=== PATIENT | female | born 1955 | race Caucasian/White ===

== ENCOUNTER 2022-11-23 09:18 | Outpatient (OUT) | payer MEDICARE, SELFPAY ==
--- NOTE | 2022-11-23 | MM_ITS ---
Patient: DASHAWN NELSON Exam Date: 11/23/2022 : 1955 Gender:F Ordering : DR Parmjit Khan . Admission #: [id number] Family : Order #: [id number] CLICK HERE TO VIEW EXAM RADIOLOGY REPORT PROCEDURE: MM TOMOSYNTHESIS SCREENING BI COMPARISON: MG MAMM SCREEN 3D CELINA CAD, 11/22/2021. INDICATIONS: Screening Mammogram Calculator Name NCI Breast Cancer Risk Assessment Tool 5 Year Breast Cancer Risk 1.40% Lifetime Breast Cancer Risk 4.60% Personal Breast Cancer No Personal Ovarian Cancer No Treatments None Family Cancers Sister with pancreatic cancer at age 74. LOCATION: [facility] BREAST COMPOSITION: Heterogeneously dense,which may obscure small masses. FINDINGS: DIAGNOSTIC CATEGORY 1--NEGATIVE. RIGHT BREAST: No significant suspicious finding. No significant change has occurred. LEFT BREAST: No significant suspicious finding. No significant change has occurred. RECOMMENDATIONS: ROUTINE MAMMOGRAM AND CLINICAL EVALUATION IN 12 MONTHS. PLEASE NOTE: A NORMAL MAMMOGRAM DOES NOT EXCLUDE THE POSSIBILITY OF BREAST CANCER. A CLINICALLY SUSPICIOUS PALPABLE LUMP SHOULD BE BIOPSIED. Dictated by: Omar Drummond M.D. on 11/23/2022 at 13:16 Approved by: Omar Drummond M.D. on 11/23/2022 at 13:21
== END 2022-11-23 09:19 | disposition home or self-care (01) ==
LOC: MAMMO 09:18
PROVIDERS: PCP Family Medicine; Visit Provider Family Medicine
DX: Z12.31 Encounter for screening mammogram for malignant neoplasm of breast (principal); Z80.0 Family history of malignant neoplasm of digestive organs
CPT/HCPCS: 77063; 77067

== ENCOUNTER 2022-12-01 07:27 | Outpatient (OUT) | payer MEDICARE, SELFPAY ==
[2022-12-01 07:44] LABS: Basophils Absolute Auto 0.1 10^3/uL (0.0-0.1); Basophils Percent Auto 1.2 % (0.2-2.0); Eosinophils Absolute Auto 0.2 10^3/uL (0.0-0.7); Eosinophils Percent Auto 5.4 % (0.9-7.0); Hematocrit 36.6 % (36.0-48.0); Hemoglobin 11.7 g/dL (12.0-16.0); Immature Granulocytes Abs Auto 0.01 10^3/uL (0.00-0.03); Immature Granulocytes Pct Auto 0.2 % (0.0-0.5); Lymphocytes Absolute Auto 1.7 10^3/uL (1.2-3.8); Lymphocytes Percent Auto 39.3 % (20.5-60.0); Mean Corpuscular Volume 90.6 fL (81.0-99.0); Mean Platelet Volume 9.8 fL (9.5-13.5); Monocytes Absolute Auto 0.5 10^3/uL (0.3-0.8); Monocytes Percent Auto 10.8 % (1.7-12.0); Neutrophils Absolute Auto 1.8 10^3/uL (1.4-6.5); Neutrophils Percent Auto 43.1 % (43.0-75.0); Platelet Count 233 10^3/uL (150-450); Red Blood Count 4.04 10^6/uL (4.20-5.40); Red Cell Distribution Width 12.5 % (11.0-15.0); White Blood Count 4.3 10^3/uL (4.0-11.0)
--- NOTE | 2022-12-01 07:45 | XR_ITS ---
[address] [address] Patient Name: DASHAWN NELSON MRN: [id number] date: 1955 Sex: F Assigned Patient Location: [facility] Current Patient Location: [facility] Accession/Order Number: [id number] Exam Date: 12/01/2022 07:50 Report Date: 12/01/2022 09:09 At the request of: IVET WALL Procedure: XR DEXA axial skeleton EXAMINATION: XR DEXA axial skeleton, 12/01/2022 7:50 AM EDT HISTORY: Post Menopausal COMPARISON: None. TECHNIQUE: Dual-energy X-ray absorptiometry (DEXA) bone density study performed for the axial skeleton. HISTORY: Post Menopausal FINDINGS: Bone mineral density AP spine L1-L4 measures 1.300 g/sq cm. T score 1.0. WHO classification: Normal Lowest bone mineral density left femoral neck measures 0.868 g/sq cm. T score -1.2. WHO classification: Osteopenia XR/XR DEXA axial skeleton IMPRESSION: Osteopenia. Moderate fracture risk Electronically authenticated by: OWEN SHELTON Date: 12/01/2022 09:09
[2022-12-01 08:23] LABS: Alanine Aminotransferase 26 U/L (14-59); Albumin Globulin Ratio 0.9; Albumin Level 3.6 g/dL (3.4-5.0); Alkaline Phosphatase 74 U/L (46-116); Anion Gap 10.4; Aspartate Amino Transferase 22 U/L (15-37); BUN Creatinine Ratio 22.9; Bilirubin Direct 0.1 mg/dL (0.0-0.2); Bilirubin Total 0.3 mg/dL (0.2-1.0); Calcium 8.7 mg/dL (8.5-10.1); Carbon Dioxide 29.1 mmol/L (21.0-32.0); Chloride 104 mmol/L (98-107); Chol HDL Ratio 2.9; Cholesterol 204 mg/dL (<=200); Estimated GFR (African America >60 (>=60); Estimated GFR (Non-African Ame 58 (>=60); Globulin 3.9 g/dL; Glucose 90 mg/dL (74-106); HDL Cholesterol 71 mg/dL (40-60); Potassium 4.5 mmol/L (3.5-5.1); Sodium 139 mmol/L (136-145); Total Protein 7.5 g/dL (6.4-8.2); Triglycerides 53 mg/dL (<=150); VLDL CHOLESTEROL 10.6 mg/dL
[2022-12-01 08:31] LABS: Estimated Average Glucose 114 mg/dL; Glycohemoglobin A1C 5.6 % (4.5-6.2)
== END 2022-12-01 07:28 | disposition home or self-care (01) ==
LOC: RAD 07:27
PROVIDERS: PCP Family Medicine; Visit Provider Family Medicine
DX: E78.5 Hyperlipidemia, unspecified (principal); Z51.81 Encounter for therapeutic drug level monitoring; E66.9 Obesity, unspecified; R73.03 Prediabetes; M85.80 Other specified disorders of bone density and structure, unspecified site; Z78.0 Asymptomatic menopausal state
CPT/HCPCS: 36415; 77080; 80048; 80061; 80076; 83036; 84443; 85025

== ENCOUNTER 2023-12-03 07:34 | Outpatient (OUT) | payer MEDICARE, SELFPAY ==
--- NOTE | 2023-12-03 07:36 | MM_ITS ---
Patient Name: DASHAWN NELSON MR#: [id number] : 1955 Exam Date: 12/03/2023 Ordering Doctor: DR Parmjit Khan . RADIOLOGY REPORT PROCEDURE: MM TOMOSYNTHESIS SCREENING BI COMPARISON: MG MAMM SCREEN 3D CELINA CAD, 11/22/2021. MM TOMOSYNTHESIS SCREENING BI, 11/23/2022. INDICATIONS: Screening Calculator Name NCI Breast Cancer Risk Assessment Tool 5 Year Breast Cancer Risk 1.40% Lifetime Breast Cancer Risk 4.30% Personal Breast Cancer No Personal Ovarian Cancer No Treatments None Family Cancers Sister with pancreatic cancer at age 74. LOCATION: [facility] BREAST COMPOSITION: The breasts are heterogeneously dense,which may obscure small masses. FINDINGS: DIAGNOSTIC CATEGORY 1--NEGATIVE. NO CHANGE FROM COMPARISON ASSESSMENT. Scattered benign-appearing calcifications are present. Scattered benign-appearing lymph nodes are present. RIGHT BREAST: No significant suspicious finding. LEFT BREAST: No significant suspicious finding. RECOMMENDATIONS: ROUTINE MAMMOGRAM AND CLINICAL EVALUATION IN 12 MONTHS. PLEASE NOTE: A NORMAL MAMMOGRAM DOES NOT EXCLUDE THE POSSIBILITY OF BREAST CANCER. A CLINICALLY SUSPICIOUS PALPABLE LUMP SHOULD BE BIOPSIED. Dictated by: Tiburcio Tejeda MD on 12/03/2023 at 12:05 Approved by: Tiburcio Tejeda MD on 12/03/2023 at 12:07
--- OUTSIDE RECORDS SUMMARY | 2023-12-03 07:39 | XMS_ITS | CCD ---
Author Organization [facility] Care Team Providers Care Lining Inserter Name Role Phone Jenny Long Unavailable UDKE, DR PARMJIT Wilson Admitting Unavailable NADERER, DR PARMJIT Wilson Attending Unavailable NADERER, DR PARMJIT Wilson Primary Care Unavailable NATASHAEBSAVANAH, DR EARNESTINE Saldivar Consulting Unavailable NADERER, DR PARMJIT Wilson Consulting Unavailable NADERER, DR PARMJIT Wilson Admitting Unavailable NADERER, DR PARMJIT Wilson Attending Unavailable NADERER, DR PARMJIT Wilson Primary Care Unavailable AARON, DR EARNESTINE Saldivar Consulting Unavailable NADERER, DR PARMJIT Wilson Consulting Unavailable NADERER, DR PARMJIT Wilson Admitting Unavailable NADERER, DR PARMJIT Wilson Attending Unavailable NADERER, DR PARMJIT Wilson Primary Care Unavailable NADERER, DR PARMJIT Wilson Consulting Unavailable NADERER, DR PARMJIT Wilson Admitting Unavailable NADERER, DR PARMJIT Wilson Attending Unavailable NADERER, DR PRAMJIT Wilson Primary Care Unavailable Edgerton, DR Dey Consulting Unavailable NADERER, DR PARMJIT Wilson Consulting Unavailable ALEJANDRA, DR GALVAN Admitting Unavailable ALEJANDRA, DR GALVAN Attending Unavailable NADEREYariel, DR PARMJIT Wilson Primary Care Unavailable AARON, DR EARNESTINE Saldivar Consulting Unavailable ALEJANDRA, DR GALVAN Consulting Unavailable Mercedes, Jenny Attending Unavailable Mercedes, Jenny Admitting Unavailable NO FAMILY, PHYSICIAN Primary Care Unavailable NADERER, PARMJIT Attending Unavailable NADERER, PARMJIT Attending Unavailable MARÍA ELENA, SONJA Wilson Attending Unavailable NADERER, PARMJIT Attending Unavailable NADERER, PARMJIT Attending Unavailable NADERER, PARMJIT Attending Unavailable Naderer Parmijt CHAVES Primary Care Provider Medications Current Medications Medication Drug Class(es) Dates Sig (Normalized) Sig (Original) amoxicillin 875 mg / clavulanate 125 mg oral tablet (2 sources) Penicillin-class Antibacterial Start: 11-27-2023 End: 12-07-2023 take 1 tablet by mouth in the morning amoxicillin-clavul anate (Augmentin) 875-125 MG tablet Indications: Sialadenitis Take 1 tablet (875 mg) by mouth in the morning and 1 tablet (875 mg) before bedtime. Do all this for 10 days. 20 tablet 11/27/2023 12/07/2023 Active ascorbic acid 60 mg / beta carotene 5000 unt / copper sulfate 40 mg / dl-alpha tocopheryl acetate 30 unt / sodium selenite 0.04 mg / zinc oxide 40 mg oral tablet (3 sources) Vitamin C Multiple Vitamin (Multivitamin Adult) tablet Orally Active aspirin 81 mg delayed release oral tablet (3 sources) Platelet Aggregation Inhibitor, Nonsteroidal Anti-inflammatory Drug aspirin 81 MG EC tablet 1 (one) time each day at the same time Active 24 hr buPROPion hydrochloride 150 mg extended release oral tablet (7 sources) Aminoketone Start: 08-01-2023 take 1 tablet by mouth every twenty-four hours in the morning buPROPion XL (Wellbutrin XL) 150 MG 24 hr tablet Indications: Major depressive disorder, recurrent episode, mild (HCC) (CMS/HCC) Take 1 tablet (150 mg) by mouth in the morning. Do not crush, chew, or split.. 90 tablet 3 08/01/2023 Active Start: 08-01-2023 take 1 tablet by kellie th every twenty-four hours in the morning buPROPion XL (Wellbutrin XL) 300 MG 24 hr tablet Indications: Major depressive disorder, recurrent episode, mild (HCC) (CMS/HCC) Take 1 tablet (300 mg) by mouth in the morning. 90 tablet 3 08/01/2023 Active buPROPion HCl Ac tive escitalopram 20 mg oral tablet (4 sources) Serotonin Reuptake Inhibitor Start: 08-01-2023 take 1 tablet by mouth once daily escitalopram (Lexapro) 20 MG tablet Indications: Major depressive disorder, recurrent episode, mild (HCC) (CMS/HCC) Take 1 tablet (20 mg) by mouth Daily 90 tablet 3 08/01/2023 Active Escitalopram Oxa late 20 MG Oral for 90 Days Active loratadine 10 mg oral tablet (3 sources) loratadine (Clar itin) 10 MG tablet 1 (one) time each day at the same time Active polyethylene glycol 3350 46955 mg powder for oral solution (3 sources) Osmotic Laxative take 17 g by mouth in the morning polyethylene glycol, PEG, 3350 (Miralax) 17 g packet Take 17 g by mouth in the morning. Active simvastatin 40 mg oral tablet (4 sources) HMG-CoA Reductase Inhibitor Start: simvastatin (Zocor) 40 MG tablet Indications: Dyslipidemia (CMS/HCC) TAKE 1 TABLET AT BEDTIME 90 tablet 3 06/21/2023 Active Simvastatin Acti ve Problems Active Problems Problem Classification Problem Date Documented Date Episodic/Chronic Diseases of mouth; excluding dental (4 sources) Sialoadenitis; Translations: [Sialoadenitis, unspecified] Onset: 11-27-2023 11-27-2023 Episodic Disorders of lipid metabolism (4 sources) Hyperlipidemia, unspecified; Translations: [Dyslipidemia] Onset: 11-10-2021 01-31-2023 Chronic Esophageal disorders (3 sources) Gastroesophageal reflux disease; Translations: [Gastro-esophageal reflux disease without esophagitis] Onset: 01-31-2023 01-31-2023 Chronic Mood disorders (3 sources) Recurrent major depressive episodes, mild ; Translations: [Major depressive disorder, recurrent, mild] Onset: 01-31-2023 01-31-2023 Chronic Other aftercare (1 source) Other senior living (current) drug therapy; Translations: [OTH FINISHED CLOTH EXAMINER CURRENT DRUG THERAPY] Onset: 11-10-2021 Episodic Other connective tissue disease (1 source) Pain in right hand; Translations: [Pain in right hand] Episodic Other connective tissue disease (2 sources) Pain in right hand; Translations: [Pain in right hand] Onset: 12-11-2021 Episodic Other ear and sense organ disorders (3 sources) Bilateral hearing loss; Translations: [Unspecified hearing loss, bilateral] Onset: 01-31-2023 01-31-2023 Chronic Other non-traumatic joint disorders (4 sources) Other specific joint derangements of right shoulder, not elsewhere classified; Translations: [OTH SPEC JOINT DERANG RT SHLDR NEC] Onset: 12-26-2021 Chronic Other non-traumatic joint disorders (1 source) Pain in right shoulder Episodic Other screening for suspected conditions (not mental disorders or infectious disease) (4 sources) Encounter for screening mammogram for malignant neoplasm of breast; Translations: [ENC SCR MAMMO MALIG NEOPLASM BREAST] Onset: 11-22-2021 Episodic Other upper respiratory disease (3 sources) Allergic rhinitis due to pollen; Translations: [Allergic rhinitis due to pollen] Onset: 01-31-2023 01-31-2023 Chronic Residual codes; unclassified (1 source) Family history of malignant neoplasm of other organs or systems; Translations: [FAM HX MALIG NEOPLASM OTH ORGN/SYS] Onset: 11-24-2021 Episodic Spondylosis; intervertebral disc disorders; other back problems (3 sources) Degeneration of lumbar intervertebral disc; Translations: [DDD (degenerative disc disease), lumbar] Onset: 01-31-2023 01-31-2023 Chronic Superficial injury; contusion (1 source) Contusion of right hand, initial encounter Episodic Unclassified (3 sources) LOW BACK PAIN, UNSPECIFIED; Translations: [LOW BACK PAIN, UNSPECIFIED] Onset: 09-20-2021 Unclassified (1 source) Pain in right shoulder; Translations: [Pain in right shoulder] Onset: 12-11-2021 Past or Other Problems Problem Classification Problem Date Documented Da te Episodic/Chronic Diabetes mellitus without complication (7 sources) Prediabetes; Translations: [Prediabetes] Onset: 11-08-2021 Episodic Other connective tissue disease (3 sources) Plantar fasciitis; Translations: [Plantar fascial fibromatosis] Onset: 01-31-2023 01-31-2023 Episodic Other connective tissue disease (3 sources) Trochanteric bursitis of left hip; Translations: [Trochanteric bursitis, left hip] Onset: 01-31-2023 01-31-2023 Episodic Other lower respiratory disease (4 sources) Pleurodynia; Translations: [PLEURODYNIA] Onset: 03-14-2021 Episodic Unclassified (1 source) LOW BACK PAIN, UNSPECIFIED; Translations: [LOW BACK PAIN, UNSPECIFIED] Onset: 09-12-2021 Results Test Name Value Interpretation Reference Range Facility MRI SHOULDER RT WO CONon MRI SHOULDER RT WO CON EXAMINATION: MRI SHOULDER RT WO CON HISTORY: Derangement of right shoulder joint ; chronic right shoulder and arm pain COMPARISON: No relevant comparison available. TECHNIQUE: A variety of imaging planes and parameters were utilized for visualization of suspected pathology. Imaging was performed without contrast. FINDINGS: ROTATOR CUFF REGION CUFF TENDONS: Irregular thinning of the supraspinatus tendon with adjacent edema but no full-thickness tear. CUFF MUSCLES: Normal appearing muscles. DELTOID: Normal. No significant atrophy or tear. LONG BICEPS TENDON: Markedly atrophic, but suspected to be intact and in normal position. LABRUM/BICEPS ANCHOR SUPERIOR: No visible labral tear or biceps anchor pathology. ANTERIOR/INFERIOR: No visible tear or attrition. POSTERIOR: No posterior labrum abnormality. CAPSULE No visible capsular laxity or thickening. AC JOINT REGION AC JOINT: Moderate osteoarthropathy with mild-moderate narrowing of the underlying coracoacromial arch. AC LIGAMENTS: Normal acromioclavicular ligament. CC LIGAMENTS: Normal coracoclavicular ligaments. ACROMION: Mild lateral downsloping. SUBACROMIAL BURSA: No significant effusion. HYALINE CARTILAGE: No visible cartilage narrowing or focal defect. OTHER BONES: Tiny degenerative osteophytes along the articular margins of humeral head. OTHER OBSERVATIONS: No other significant findings or glenohumeral effusion. IMPRESSION: 1. Partial tear versus marked tendinopathy of the suppression is tendon. 2. Moderate degenerative changes of the acromioclavicular joint and mild lateral downsloping of acromion process likely contributing to changes of the supraspinatus tendon. Electronically authenticated by: EARNESTINE WALKER Date: 2021-12-27 07:51 Normal [facility] XR hand RT min 3V*on 022 XR hand RT min 3V* [facility] [employer] Other XR hand RT min 3V* [facility] [employer] Other XR hand RT min 3V* [address] [place] [address] [employer] Other XR hand RT min 3V* [place] [address] [employer] Other XR hand RT min 3V* XRay Report [employer] Other XR hand RT min 3V* Signed [employer] Other XR hand RT min 3V* Patient: Dashawn Nelson MR#: [id number] [employer] Other XR hand RT min 3V* [id number] [employer] Other XR hand RT min 3V* : 1955 Acct:[id number] [employer] Other XR hand RT min 3V* Age/Sex: 66 / F ADM Date: 12/11/21 [employer] Other XR hand RT min 3V* Loc: XDUCLY Room: Type: [facility] [employer] Other XR hand RT min 3V* Attending Dr: Jenny KULKARNI [employer] Other XR hand RT min 3V* Copies to: SHAD Rivas [employer] Other XR hand RT min 3V* Ordering Provider: SHAD Rivas [employer] Other XR hand RT min 3V* Date of Service: 12/11/21 [employer] Other XR hand RT min 3V* XR/XR hand RT min 3V*: Acute pain of right shoulder;Right hand pain [employer] Other XR hand RT min 3V* XR hand RT min 3V* 12/11/2021 9:25 AM [employer] Other XR hand RT min 3V* SIGNS AND SYMPTOMS: Pain in right hand after fall [employer] Other XR hand RT min 3V* PROTOCOL: Frontal, lateral, and oblique radiographs of the right hand [employer] Other XR hand RT min 3V* COMPARISON: None [employer] Other XR hand RT min 3V* FINDINGS: [employer] Other XR hand RT min 3V* There is mild narrowing of the joint spaces of the thumb. There is no evidence of fracture. No [employer] Other XR hand RT min 3V* dislocation or subluxation. No significant soft tissue swelling. [employer] Other XR hand RT min 3V* XR/XR hand RT min 3V* [employer] Other XR hand RT min 3V* IMPRESSION: [employer] Other XR hand RT min 3V* No acute bony injury. [employer] Other XR hand RT min 3V* Mild degenerative changes are noted in the thumb. [employer] Other XR hand RT min 3V* Impression dictated by: Jose Castro M.D.12/11/2021 10:00 AM [employer] Other XR hand RT min 3V* Dictation Location: [place] [address] [employer] Other XR hand RT min 3V* Transcribed By: DARI 12/11/21 1000 [employer] Other XR hand RT min 3V* Dictated By: Jose Castro II, MD 12/11/21 0958 [employer] Other XR hand RT min 3V* Signed By: [employer] Other XR hand RT min 3V* 12/11/21 1000 [facility] [place] Other XR hand RT min 3V* [facility] [place] [address] [place] [address] XRay Report Signed Patient: Dashawn Nelson MR#: [id number] : 1955 Acct:[id number] Age/Sex: 66 / F ADM Date: 12/11/21 Loc: XDUCLY Room: Type: [facility] Attending Dr: Jenny KULKARNI Copies to: SHAD Rivas Ordering Provider: SHAD Rivas Date of Service: 12/11/21 XR/XR hand RT min 3V*: Acute pain of right shoulder;Right hand pain XR hand RT min 3V* 12/11/2021 9:25 AM SIGNS AND SYMPTOMS: Pain in right hand after fall PROTOCOL: Frontal, lateral, and oblique radiographs of the right hand COMPARISON: None FINDINGS: There is mild narrowing of the joint spaces of the thumb. There is no evidence of fracture. No dislocation or subluxation. No significant soft tissue swelling. XR/XR hand RT min 3V* IMPRESSION: No acute bony injury. Mild degenerative changes are noted in the thumb. Impression dictated by: Jose Castro M.D.12/11/2021 10:00 AM Dictation Location: [place] [address] Transcribed By: [facility] 12/11/21 1000 Dictated By: Jose Castro II, MD 12/11/21 0958 Signed By: 12/11/21999 [facility] XR shoulder RT min 2V*on XR shoulder RT min 2V* XR/XR shoulder RT min 2V*: Acute pain of right shoulder;Right hand pain [employer] Other XR shoulder RT min 2V* XR shoulder RT min 2V* 12/11/2021 9:25 AM [employer] Other XR shoulder RT min 2V* SIGNS AND SYMPTOMS: Pain in right shoulder and right hand after fall [employer] Other XR shoulder RT min 2V* PROTOCOL: Frontal, Grashey, and scapular Y views of the right shoulder [employer] Other XR shoulder RT min 2V* There is mild narrowing of the glenohumeral joint. Mild degenerative changes are noted in the [employer] Other XR shoulder RT min 2V* acromioclavicular joint. There is subcortical sclerosis at the greater tuberosity of the humerus. [employer] Other XR shoulder RT min 2V* There is no evidence of fracture or dislocation. The visualized right hemithorax is grossly intact. [employer] Other XR shoulder RT min 2V* XR/XR shoulder RT min 2V* [employer] Other XR shoulder RT min 2V* No fracture or dislocation. [employer] Other XR shoulder RT min 2V* Degenerative changes are noted with findings suspicious for underlying rotator cuff abnormalities. [employer] Other XR shoulder RT min 2V* Impression dictated by: Jose Castro M.D.12/11/2021 10:17 AM [employer] Other XR shoulder RT min 2V* Transcribed By: DARI 12/11/21 1017 [employer] Other XR shoulder RT min 2V* Dictated By: Jose Castro II, MD 12/11/21 1016 [employer] Other XR shoulder RT min 2V* 12/11/21 1017 [employer] Other XR shoulder RT min 2V* [facility] [place] [address] [place] [address] XRay Report Signed Patient: Dashawn Nelson MR#: [id number] : 1955 Acct:[id number] Age/Sex: 66 / F ADM Date: 12/11/21 Loc: XDUCLY Room: Type: [facility] Attending Dr: Jenny KULKARNI Copies to: SHAD Rivas Ordering Provider: SHAD Rivas Date of Service: 12/11/21 XR/XR shoulder RT min 2V*: Acute pain of right shoulder;Right hand pain XR shoulder RT min 2V* 12/11/2021 9:25 AM SIGNS AND SYMPTOMS: Pain in right shoulder and right hand after fall PROTOCOL: Frontal, Grashey, and scapular Y views of the right shoulder COMPARISON: None FINDINGS: There is mild narrowing of the glenohumeral joint. Mild degenerative changes are noted in the acromioclavicular joint. There is subcortical sclerosis at the greater tuberosity of the humerus. There is no evidence of fracture or dislocation. The visualized right hemithorax is grossly intact. XR/XR shoulder RT min 2V* IMPRESSION: No fracture or dislocation. Degenerative changes are noted with findings suspicious for underlying rotator cuff abnormalities. Impression dictated by: Jose Castro M.D.12/11/2021 10:17 AM Dictation Location: [place] [address] Transcribed By: [facility] 12/11/21 1017 Dictated By: Jose Castro II, MD 12/11/21 1016 Signed By: 12/11/21 1017 [facility] MG MAMM SCREEN 3D CELINA CADon 11-22-2021 MG MAMM SCREEN 3D CELINA CAD Patient: DASHAWN NELSON Exam Date: 11/22/2021 : 1955 Gender:F Ordering : DR PARMJIT WALL . Admission #: [id number] Family : Order #: [id number] CLICK HERE TO VIEW EXAM RADIOLOGY REPORT PROCEDURE: MAMMOGRAM SCREENING 3D BILATERAL CAD COMPARISON: MG MAMM SCREEN CELINA W CAD, 04/29/2019. MG MAMM SCREEN 3D CELINA CAD, 06/24/2020. INDICATIONS: Screening mammography Calculator Name NCI Breast Cancer Risk Assessment Tool 5 Year Breast Cancer Risk 1.40% Lifetime Breast Cancer Risk 4.80% Personal Breast Cancer No Personal Ovarian Cancer No Treatments None Family Cancers Sister with pancreatic cancer at age 74. LOCATION: [facility] BREAST COMPOSITION: Heterogeneously dense,which may obscure small masses. FINDINGS: DIAGNOSTIC CATEGORY 1--NEGATIVE. NO CHANGE FROM COMPARISON ASSESSMENT. Scattered benign-appearing calcifications are present. Scattered benign-appearing lymph nodes are present. RIGHT BREAST: No significant suspicious finding. LEFT BREAST: No significant suspicious finding. RECOMMENDATIONS: ROUTINE MAMMOGRAM AND CLINICAL EVALUATION IN 12 MONTHS. PLEASE NOTE: A NORMAL MAMMOGRAM DOES NOT EXCLUDE THE POSSIBILITY OF BREAST CANCER. A CLINICALLY SUSPICIOUS PALPABLE LUMP SHOULD BE BIOPSIED. Dictated by: Tiburcio Tejeda MD on 11/22/2021 at 09:56 Approved by: Tiburcio Tejeda MD on 11/22/2021 at 09:58 Normal [facility] CBC AUTO DIFFon 11-08-2021 BASO # 0.0 103/ul Normal 0.0-0.1 [facility] Comment on above: Performed By: #### C BC #### [facility] [address] [place] [address] Dr. Joao Herrmann Basophils/100 WBC (Bld) 0.6 % Normal 0.2-2.0 [facility] Comment on above: Performed By: #### C BC #### [facility] [address] [place] [address] Dr. Joao Herrmann EO # 0.3 103/ul Normal 0.0-0.7 [facility] Comment on above: Performed By: #### C BC #### [facility] [address] [place] [address] Dr. Joao Herrmann Eosinophils/100 WBC (Bld) 4.3 % Normal 0.9-7.0 [facility] Comment on above: Performed By: #### C BC #### [facility] [address] [place] [address] Dr. Joao Herrmann Erythrocyte distribution width (RBC) [Ratio] 12.5 % Normal 11.0-15.0 [facility] Comment on above: Performed By: #### C BC #### [facility] [address] [place] [address] Dr. Joao Herrmann Hematocrit (Bld) [Volume fraction] 41.1 % Normal 36.0-48.0 [facility] Comment on above: Performed By: #### C BC #### [facility] [address] [place] [address] Dr. Joao Herrmann Hemoglobin (Bld) [Mass/Vol] 13.2 g/dL Normal 12.0-16.0 [facility] Comment on above: Performed By: #### C BC #### [facility] [address] [place] [address] Dr. Joao Herrmann IG # 0.01 10e3/ul Normal 0.00-0.03 [facility] Comment on above: Performed By: #### C BC #### [facility] [address] [place] [address] Dr. Joao Herrmann IG % 0.1 % Normal 0.0-0.5 [facility] Comment on above: Performed By: #### C BC #### [facility] [address] [place] [address] Dr. Joao Herrmann LYMPH # 2.1 103/ul Normal 1.2-3.8 [facility] Comment on above: Performed By: #### C BC #### [facility] [address] [place] [address] [address] Joao Herrmann Lymphocytes/100 WBC (Bld) 31.5 % Normal 20.5-60.0 [facility] Comment on above: Performed By: #### C BC #### [facility] [address] [place] [address] Dr. Joao Herrmann MANUAL DIFF REQ NO Normal [facility] Comment on above: Performed By: #### C BC #### [facility] [address] [place] [address] Dr. Joao Herrmann MCH (RBC) [Entitic mass] 29.1 pg Normal 26.7-34.0 [facility] Comment on above: Performed By: #### C BC #### [facility] [address] [place] [address] Dr. Joao Herrmann MCHC (RBC) [Mass/Vol] 32.1 g/dL Normal 29.9-35.2 [facility] Comment on above: Performed By: #### C BC #### [facility] [address] [place] [address] Dr. Joao Herrmann MCV (RBC) [Entitic vol] 90.7 fL Normal 81.0-99.0 [facility] Comment on above: Performed By: #### C BC #### [facility] [address] [place] [address] Dr. Joao Herrmann MONO # 0.5 103/ul Normal 0.3-0.8 [facility] Comment on above: Performed By: #### C BC #### [facility] [address] [place] [address] Dr. Joao Herrmann Monocytes/100 WBC (Bld) 7.9 % Normal 1.7-12.0 [facility] Comment on above: Performed By: #### C BC #### [facility] [address] [place] [address] [address] Joao Herrmann NEUT # 3.7 103/ul Normal 1.4-6.5 [facility] Comment on above: Performed By: #### C BC #### [facility] [address] [place] [address] [address] Joao Herrmann Neutrophils/100 WBC (Bld) 55.6 % Normal 43.0-75.0 [facility] Comment on above: Performed By: #### C BC #### [facility] [address] [place] [address] Dr. Joao Herrmann Platelet mean volume (Bld) [Entitic vol] 10.2 fL Normal 9.5-13.5 [facility] Comment on above: Performed By: #### C BC #### [facility] [address] [place] [address] Dr. Joao Herrmann PLT 245 103/ul Normal 150-450 [facility] Comment on above: Performed By: #### C BC #### [facility] [address] [place] [address] Dr. Joao Herrmann RBC 4.53 106/ul Normal 4.20-5.40 [facility] Comment on above: Performed By: #### C BC #### [facility] [address] [place] [address] Dr. Joao Herrmann WBC 6.7 103/ul Normal 4.0-11.0 [facility] Comment on above: Performed By: #### C BC #### [facility] [address] [place] [address] Dr. Joao Herrmann GLYCOHEMOGLOBIN A1Con 2021 ADA RECOMMENDATION SEE BELOW Normal [facility] Comment on above: Result Comment: ADA RECOMMENDED LIMIT 4.0 - 6.0 ADA THERAPEUTIC TARGET < 7.0 ACTION SUGGESTED > 7.0 Performed By: #### A 1C #### [facility] [address] [place] [address] Dr. Joao Herrmann Glucose [Mass/Vol] 114 mg/dL Normal [facility] Comment on above: Performed By: #### A 1C #### [facility] [address] [place] [address] [address] Joao Herrmann HbA1c (Bld) [Mass fraction] 5.6 % Normal 4.5-6.2 [facility] Comment on above: Performed By: #### A 1C #### [facility] [address] [place] [address] [address] Joao Herrmann LIPID PROFILEon 11-08-2021 CHOL-HDL RATIO NORM SEE BELOW Normal [facility] Comment on above: Result Comment: 3.3 - 4.4 LOW RISK 4.4 - 7.1 AVERAGE RISK 7.1 - 11.0 MODERATE RISK >11.0 HIGH RISK Performed By: #### L IPID, BMP, LIVER #### [facility] [address] [place] [address] Dr. Joao Herrmann Cholesterol [Mass/Vol] 186 mg/dL Normal <=200 [facility] Comment on above: Performed By: #### L IPID BMP, LIVER #### [facility] [address] [place] [address] Dr. Joao Herrmann Cholesterol in HDL [Mass/Vol] 71 mg/dL Critically high 40-60 [facility] Comment on above: Performed By: #### L IPID BMP, LIVER #### [facility] [address] [place] [address] Dr. Joao Herrmann Cholesterol in LDL [Mass/Vol] 97.4 mg/dL Normal [facility] Comment on above: Performed By: #### L IPID, BMP, LIVER #### [facility] [address] [place] [address] Dr. Joao Herrmann Cholesterol.total/C holesterol in HDL [Mass ratio] 2.6 {ratio} Normal [facility] Comment on above: Performed By: #### L IPID, BMP, LIVER #### [facility] [address] [place] [address] Dr. Joao Herrmann HDL NORMAL > or = 60 mg/dl - LO W CARDIOVASCULAR RISK <40 mg/dl - HIGH CARDIOVASCULAR RISK Normal [facility] Comment on above: Performed By: #### L IPID, BMP, LIVER #### [facility] [address] [place] [address] Dr. Joao Herrmann LDL CALC NORMAL SEE BELOW Normal [facility] Comment on above: Result Comment: <100 mg/dl OPTIMAL 100 - 129 mg/dl NEAR OR ABOVE OPTIMAL 130 - 159 mg/dl BORDERLINE HIGH 160 - 189 mg/dl HIGH >190 mg/dl VERY HIGH Performed By: #### L IPID, BMP, LIVER #### [facility] [address] [address] [address] Joao Herrmann Triglyceride [Mass/Vol] 88 mg/dL Normal <=150 [facility] Comment on above: Performed By: #### L IPID, BMP, LIVER #### [facility] [address] [place] [address] Dr. Joao Herrmann VLDL CALC 17.6 mg/dL Normal [facility] Comment on above: Performed By: #### L IPID, BMP, LIVER #### [facility] [address] [address] [address] Joao Herrmann LIVER PROFILEon 11-08-2021 Albumin [Mass/Vol] 4.3 g/dL Normal 3.4-5.0 [facility] Comment on above: Performed By: #### L IPID, BMP, LIVER #### [facility] [address] [place] [address] Dr. Joao Herrmann Albumin/Globulin [Mass ratio] 1.2 {ratio} Normal [facility] Comment on above: Performed By: #### L IPID, BMP, LIVER #### [facility] [address] [place] [address] Dr. Joao Herrmann ALP [Catalytic activity/Vol] 79 U/L Normal 46-116 [facility] Comment on above: Performed By: #### L IPID, BMP, LIVER #### [facility] [address] [place] [address] Dr. Joao Herrmann ALT [Catalytic activity/Vol] 32 U/L Normal 14-59 [facility] Comment on above: Performed By: #### L IPID, BMP, LIVER #### [facility] [address] [address] [address] Joao Herrmann AST [Catalytic activity/Vol] 26 U/L Normal 15-37 [facility] Comment on above: Performed By: #### L IPID, BMP, LIVER #### [facility] [address] [place] [address] Dr. Joao Herrmann BILI, CONJUGATED 0.1 mg/dL Normal 0.0-0.2 [facility] Comment on above: Performed By: #### L IPID, BMP, LIVER #### [facility] [address] [place] [address] Dr. Joao Herrmann Bilirubin [Mass/Vol] 0.3 mg/dL Normal 0.2-1.0 [facility] Comment on above: Performed By: #### L IPID, BMP, LIVER #### [facility] [address] [place] [address] Dr. Joao Herrmann Globulin (S) [Mass/Vol] 3.7 g/dL Normal [facility] Comment on above: Performed By: #### L IPID, BMP, LIVER #### [facility] [address] [place] [address] Dr. Joao Herrmann Protein [Mass/Vol] 8.0 g/dL Normal 6.4-8.2 [facility] Comment on above: Performed By: #### L IPID, BMP, LIVER #### [facility] [address] [place] [address] Dr. Joao Herrmann PROF CHEM 8 (BAS METB)on Anion gap [Moles/Vol] 12.7 mmol/L Normal [facility] Comment on above: Performed By: #### L IPID, BMP, LIVER #### [facility] [address] [place] [address] Dr. Joao Herrmann Calcium [Mass/Vol] 9.5 mg/dL Normal 8.5-10.1 [facility] Comment on above: Performed By: #### L IPID, BMP, LIVER #### [facility] [address] [place] [address] Dr. Joao Herrmann Chloride [Moles/Vol] 101 mmol/L Normal 98-107 [facility] Comment on above: Performed By: #### L IPID, BMP, LIVER #### [facility] [address] [address] [address] Joao Herrmann CO2 [Moles/Vol] 27.9 mmol/L Normal 21.0-32.0 [facility] Comment on above: Performed By: #### L IPID, BMP, LIVER #### [facility] [address] [place] [address] Dr. Joao Herrmann Creatinine [Mass/Vol] 0.97 mg/dL Normal 0.55-1.02 [facility] Comment on above: Performed By: #### L IPID, BMP, LIVER #### [facility] [address] [place] [address] Dr. Joao Herrmann EGFR-AF [place] >60 Normal >=60 [facility] Comment on above: Performed By: #### L IPID, BMP, LIVER #### [facility] [address] [place] [address] Dr. Joao Herrmann EGFR-NON AF [place] 57 mL/min/1.73m2 Critically low >=60 [facility] Comment on above: Performed By: #### L IPID, BMP, LIVER #### [facility] [address] [place] [address] Dr. Joao Herrmann Glucose [Mass/Vol] 95 mg/dL Normal 74-106 [facility] Comment on above: Performed By: #### L IPID, BMP, LIVER #### [facility] [address] [place] [address] Dr. Joao Herrmann Potassium [Moles/Vol] 4.6 mmol/L Normal 3.5-5.1 [facility] Comment on above: Performed By: #### L IPID, BMP, LIVER #### [facility] [address] [place] [address] Dr. Joao Herrmann Sodium [Moles/Vol] 137 mmol/L Normal 136-145 [facility] Comment on above: Performed By: #### L IPID, BMP, LIVER #### [facility] [address] [place] [address] Dr. Joao Herrmann Urea nitrogen [Mass/Vol] 13.0 mg/dL Normal 7.0-18.0 [facility] Comment on above: Performed By: #### L IPID, BMP, LIVER #### [facility] [address] [place], [place] [address] Dr. Joao Herrmann Urea nitrogen/Creatinine [Mass ratio] 13.4 mg/mg Normal [facility] Comment on above: Performed By: #### L IPID, BMP, LIVER #### [facility] [address] [place], [place] [address] Dr. Joao Herrmann XR LSPINE MIN 4 VIEWSon XR LSPINE MIN 4 VIEWS EXAMINATION: XR LSPINE MIN 4 VIEWS HISTORY: Low back pain ; Chronic low back and bilateral hip pain COMPARISON: No relevant comparison available. FINDINGS: BONES: Straightening of the normal lordotic curvature. Minimal grade 1 retrolisthesis of L3 on 4. Mild degenerative facet arthropathy of lower lumbar spine. DISC SPACES: Marked narrowing L3-L4. Mild narrowing L4-L5, L5-S1. PARASPINOUS: Negative. No paraspinous abnormality is seen. OTHER: Negative. IMPRESSION: 1. Degenerative disc disease of the lumbar spine, marked at L3-L4. Consider MRI for further evaluation. Electronically authenticated by: EARNESTINE WALKER Date: 2021-09-13 08:48 Normal [facility] XR RIBS LT PA Antonette 2 XR RIBS LT PA CH EXAMINATION: XR RIBS LT PA CH HISTORY: Rib pain ; chronic lower left rib pain COMPARISON: No relevant comparison available. FINDINGS: LUNGS: No significant pulmonary parenchymal abnormalities. PLEURA: No pneumothorax, effusion, or pleural thickening. MEDIASTINUM: No visible mass or adenopathy. CARDIAC: No cardiomegaly or cardiac silhouette abnormality. RIBS: No acute rib fracture. Old healed left rib fractures. OTHER: Negative. IMPRESSION: 1. No acute bone abnormality or acute cardiopulmonary process. 2. Old, healed left rib fractures. Electronically authenticated by: EARNESTINE WALKER Date: 2021-03-14 10:16 Normal [facility] Vital Signs Date Time Vital Sign Value Performing Clinician Facility 11-27-2023 11:44-0400 Body height 167.6 cm Parmjit Wall MD Work Phone: [facility] 11-27-2023 11:44-0400 Body mass index (BMI) [Ratio] 29.54 kg/m2 Parmjit Wall MD Work Phone: [facility] 11-27-2023 11:44-0400 Body temperature 96.21 [degF] Parmjit Wall MD Work Phone: [facility] 11-27-2023 11:44-0400 Body weight 83.01 kg Parmjit Wall MD Work Phone: [facility] 11-27-2023 11:44-0400 Diastolic blood pressure 66 mm[Hg] Parmjit Wall MD Work Phone: [facility] 11-27-2023 11:44-0400 Heart rate 91 /min Parmjit Wall MD Work Phone: [facility] 11-27-2023 11:44-0400 Respiratory rate 20 /min Parmjit Wall MD Work Phone: [facility] 11-27-2023 11:44-0400 SaO2% (BldA) [Mass fraction] 97 % Parmjit Wall MD Work Phone: [facility] 11-27-2023 11:44-0400 Systolic blood pressure 130 mm[Hg] Parmjit Wall MD Work Phone: [facility] 12-11-2021 10:00-0400 Body height 170.18 cm Jenny Long Other [facility] Other 12-11-2021 10:00-0400 Body mass index (BMI) [Ratio] 28.97 kg/m2 Jenny oLng Other [facility] Other 12-11-2021 10:00-0400 Body temperature 97.7 [degF] Jenny Long Other [facility] Other 12-11-2021 10:00-0400 Body weight 83.92 kg Jenny Long Other [facility] Other 12-11-2021 10:00-0400 Diastolic blood pressure 83 mm[Hg] Jenny Long Other [facility] Other 12-11-2021 10:00-0400 Respiratory rate 16 /min Jenny Long Other [facility] Other 12-11-2021 10:00-0400 SaO2% (BldA) [Mass fraction] 99 % Jenny Long Other [facility] Other 12-11-2021 10:00-0400 Systolic blood pressure 150 mm[Hg] Jenny Solomonmond Other [facility] Other Encounters Encounter Date Encounter Type Care Provider Facility Start: 11-27-2023 End: 11-27-2023 Bamtito Wall MD Work Phone: [facility] Start: 11-27-2023 End: 11-27-2023 Cinthya Wall MD Work Phone: [facility] Start: 11-27-2023 End: 11-27-2023 Office outpatient visit 15 minutes Parmjit Wall MD Work Phone: [facility] Comment on above: Sialadenitis (Primar y Dx) Start: 11-27-2023 End: 11-27-2023 ambulatory PARMJIT WALL Not Available Start: 10-29-2023 End: 10-29-2023 ambulatory PARMJIT WALL Not Available Start: 08-01-2023 End: 08-01-2023 ambulatory PARMJIT WALL Not Available Start: 05-08-2023 End: 05-08-2023 ambulatory PARMJIT WALL Not Available Start: 01-31-2023 End: 01-31-2023 ambulatory PARMJIT WALL Not Available Start: 01-23-2023 End: 01-23-2023 ambulatory SONJA JESUS Not Available Start: 12-26-2021 End: 12-27-[address] COLE ALEJANDRA Facility:[facility] Start: 12-11-2021 Office outpatient ne w 20 minutes Jenny Solomonmond [facility] Start: 12-11-2021 End: 12-11-2021 ambulatory Jenny Solomonmond [facility] Other Start: 12-11-2021 End: 12-11-2021 Patient encounter procedure RESISTOR TESTER-C Jenny Solomonmond Work Phone: [facility] Start: 11-22-2021 End: 11-23-[address] PARMJIT WALL Facility:[facility] Start: 11-08-2021 End: 11-09-[address] PARMJIT WALL Facility:[facility] Start: 09-12-2021 End: 09-13-[address] PARMJIT WALL Facility:[facility] Start: 03-14-2021 End: 03-15-[address] PARMJIT WALL Facility:[facility] Procedures Date Procedure Procedure Detail Performing Clinician Start: 11-23-2022 Mammography Parmjit cazares MD Work Phone: Start: 12-11-2021 Plain X-ray of right hand RESISTOR TESTER-C Jenny Solomonmond Work Phone: Start: 12-11-2021 Plain X-ray of right shoulder RESISTOR TESTER-C Jenny Solomonmond Work Phone: Start: 02-16-2020 Colonoscopy Parmjit cazares MD Work Phone: Plan of Treatment Date Care Activity Detail Author Start: 02-15-2030 Screening for malign ant neoplasm of colon [facility] Start: 01-28-2024 End: 01-28-2024 Patient encounter procedure 01/28/2024 8:30 AM EST Office Visit [facility] [address] [place] [address] Sonja Jesus, COMMERCIAL ASSISTANT-HOME HEALTH LPN [address] [place] [address] [facility] Start: 12-04-2023 End: 12-04-2023 Patient encounter procedure 12/04/2023 9:30 AM EDT Office Visit [facility] [address] [place] [phone] Parmjit Wall MD [address] [place] [phone] [facility] Start: 11-27-2023 End: 11-27-2023 Patient encounter procedure 11/27/2023 11:45 AM EDT Office Visit [facility] [address] [place] [phone] Parmjit Wall MD [address] [place] [phone] Arrived [facility] Comment on above: Arrived Start: 11-24-2023 Screening for malign ant neoplasm of breast Mammogram [facility] Start: 11-10-2023 Medicare Annual Well ness (AWV) Medicare Annual Wellness (AWV) [facility] Start: 10-14-2023 Influenza vaccination Influenza Vacc ine (#1) [facility] Start: 1955 Screening for malign ant neoplasm of colon [facility] Immunizations Immunization Date Immunization Notes Care Provider Fa cility 11-28-2022 influenza virus vacc ine, unspecified formulation Parmjit Wall MD Work Phone: [facility] Payers Date Payer Category Payer Self-pay 2021 Medicare (Managed Care) [place] [id number] 1959 Unknown [id number] 1955 Unknown [id number] [id number]. 2.593 1954 Unknown [id number] [id number]. 2.593 1954 Unknown [id number] [id number]. 2.593 1954 Unknown [id number] [id number]. 2.593 1954 Unknown [id number] [id number]. 2.593 1954 Unknown [id number] [id number]. 2.1259 1954 Unknown [id number] [id number]. 2.1259 1954 Unknown [id number] [id number]. 2.125 1954 Unknown [id number] [id number]. 2.1259 1954 Unknown [id number] [id number]. 2.1259 1954 Unknown [id number] [id number]. 2.1259 Blue Cross Blue Shield [id number] Unknown [id number] [id number]. 2.531 Social History Date Type Detail Facility Start: 01-24-2023 End: 05-07-2023 Sex Assigned At [facility] Start: 1955 Sex Assigned At Female [facility] Start: 02-16-2023 Tobacco smoking status NHIS Ex-smoker [facility] End: 08-31-2010 History of tobacco use Current smoker [facility] End: 08-31-2010 History of tobacco use Cigarette Smoker [facility] Start: 02-16-2023 Tobacco use and exposure Smokeless tobacco non-user [facility] Start: 10-29-2023 End: 11-27-2023 Alcoholic beverage intake Current drinker of alcohol (finding) [facility] Start: 01-24-2023 End: 05-07-2023 [facility] Within the last year , have you been afraid of your partner or ex-partner? No [facility] Are you now , , , , never or living with a partner? [facility] How often to you hav e a drink containing alcohol? 2-4 times a month [facility] How many standard dr inks containing alcohol do you have on a typical day? 3 or 4 [facility] How often do you hav e 6 or more drinks on 1 occasion? Never [facility] How hard is it for y ou to pay for the very basics like food, housing, medical care, and heating Not very hard [facility] Do you feel stress - tense, restless, nervous, or anxious, or unable to sleep at night because your mind is troubled all the time - these days [OSQ] Only a little [facility] (I/We) worried whejune er (my/our) food would run out before (I/we) got money to buy more. Never true [facility] In the past 12 month s, has lack of transportation kept you from medical appointments or from getting medications? No [facility] Start: 02-16-2023 Tobacco Comment Last smoked : > 10 years [facility] Start: 02-16-2023 Alcohol Comment caffeine: 2 coffee, 1 diet; 2-3 cups per day [facility] Start: 1955 Sex assigned at Not on file [facility] History of Present illness Narrative 11-27-2023 Parmjit Wall MD - 11/27/2023 12:01 PM EDTMmartin Wall MD - 11/27/2023 11:45 AM EDT Note Date & Type Note Facility 11-27-2023 History of Presen t illness Narrative Associated Problem(s): Sialadenitis Appears to have enlarged salivary gland and tenderness. Treat with augmentin. Use warm compresses PRN and try sour candy. If no improvement will need US. Images from the original note were not included. Subjective Patient ID: Dashawn Nelson is a 68 y.o. female who presents for Earache (Pain at base of ear, goes down neck). C/o pain under right ear and behind jaw for 2 days. No pain in hear and no change in hearing. Ear not plugged or popping. No dental pain. C/o pain and tenderness under jaw and notice a lump under angle of jaw. No skin changes and no redness. No congestion or rhinorrhea. No COTE or sinus pressure. Normal appetite and no nausea or emesis. Afebrile. No fatigue. Tried OTC with mild relief. Heat helps. Review of Systems Respiratory: Negative for cough, shortness of breath and wheezing. Cardiovascular: Negative for chest pain and palpitations. Gastrointestinal: Negative for abdominal pain, diarrhea, nausea and vomiting. Genitourinary: Negative for dysuria. Objective Physical Exam Constitutional: General: She is not in acute distress. Appearance: Normal appearance. HENT: Head: Normocephalic. Right Ear: Tympanic membrane normal. Left Ear: Tympanic membrane normal. Eyes: Extraocular Movements: Extraocular movements intact. Pupils: Pupils are equal, round, and reactive to light. Neck: Comments: Tenderness over right submandibular gland and angle of jaw. Cardiovascular: Rate and Rhythm: Normal rate and regular rhythm. Heart sounds: No murmur heard. No friction rub. No gallop. Pulmonary: Effort: Pulmonary effort is normal. Breath sounds: Normal breath sounds. No wheezing, rhonchi or rales. Abdominal: General: Bowel sounds are normal. There is no distension. Palpations: Abdomen is soft. Tenderness: There is no abdominal tenderness. There is no guarding or rebound. Musculoskeletal: Cervical back: Neck supple. Right lower leg: No edema. Left lower leg: No edema. Neurological: Mental Status: She is alert. Assessment/Plan Problem List Items Addressed This Visit Sialadenitis - Primary Appears to have enlarged salivary gland and tenderness. Treat with augmentin. Use warm compresses PRN and try sour candy. If no improvement will need US. Relevant Medications amoxicillin-clavulanate (Augmentin) 875-125 MG tablet documented in this encounter [facility] Evaluation note 12-11-2021 Note Date & Type Note Facility 12-11-2021 Evaluation note Encounter Date Diagnosis Assessment Notes Nov, Acute pain of right shoulder (ICD-10 - M25.511) Nov, Contusion of right hand, initial encounter (ICD-10 - S60.221A) Wear the Eduar wrap for comfort and compression. Take ibuprofen as needed for pain. Ice and elevate your hand 2-3 times a day. Follow-up with your orthopedic physician tomorrow as scheduled. Nov, Right hand pain (ICD-10 - M79.641) Nov, Other Contusion material was printed [facility] Other Clinical Note 09-13-2021 Note Date & Type Note Facility 09-13-2021 Note PROCEDURE: XR HIPS B IL 3_4V WO PELVIS HISTORY: Low back pain , chronic bilateral hip pain COMPARISON: None. FINDINGS: BONES:No fracture, acute abnormality, or significant arthropathy. SOFT TISSUES:No visible soft tissue swelling. EFFUSION:None visible. OTHER: Negative. IMPRESSION: 1. No acute bone abnormality or bone lesion. 2. Minimal degenerative changes. Electronically authenticated by: EARNESTINE WALKER Date: 2021-09-13 08:46 [facility] Evaluation note Note Date & Type Note Facility Evaluation [facility] Evaluation note Note Date & Type Note Facility Evaluation note Diagnosis Major depressive disorder, recurrent episode, mild (HCC) (CMS/HCC)- Primary Major depressive disorder, recurrent episode, mild DDD (degenerative disc disease), lumbar Degeneration of lumbar or lumbosacral intervertebral disc Seasonal allergic rhinitis due to pollen Major depressive disorder, recurrent episode, mild (HCC) (CMS/HCC)- Primary Major depressive disorder, recurrent episode, mild DDD (degenerative disc disease), lumbar Degeneration of lumbar or lumbosacral intervertebral disc Seasonal allergic rhinitis due to pollen Gastroesophageal reflux disease without esophagitis Esophageal reflux Major depressive disorder, recurrent episode, mild (HCC) (CMS/HCC)- Primary Major depressive disorder, recurrent episode, mild DDD (degenerative disc disease), lumbar Degeneration of lumbar or lumbosacral intervertebral disc Gastroesophageal reflux disease without esophagitis Esophageal reflux Seasonal allergic rhinitis due to pollen Major depressive disorder, recurrent episode, mild (HCC) (CMS/HCC)- Primary Major depressive disorder, recurrent episode, mild DDD (degenerative disc disease), lumbar Degeneration of lumbar or lumbosacral intervertebral disc Seasonal allergic rhinitis due to pollen Sialadenitis- Primary Sialoadenitis documented in this encounter [facility] History general Narrative - Reported Note Date & Type Note Facility History general Narrative - Reported Type Medical History depression Medical History [facility] Other Summary Purpose Family History No Family History Records FoundNo Family History Records FoundNo Family History Records Found Advance Directives No Advanced Directives Records FoundNo Advanced Directives Records FoundNo Advanced Directives Records Found Additional Source Comments REASON FOR VISIT (unrecogniz ed section and content) Reason Comments Earache Pain at base of ear, goes down neck Care Teams (unrecognized sec tion and content) Team Status: Inactive Member Role Status Dates Jenny Long NP-C Attending Provider Active Lining Inserter Relationship Specialty Start Date End Date Parmjit Wall MD [address] [place] [phone] PCP - General Family Medicine 05/08/23 Lining Inserter Relationship Specialty Start Date End Date Parmijt Wall MD [address] [place] [phone] PCP - General Family Medicine 05/08/23 Goals (unrecognized section and content) Goals may be documented in a n alternate section INFORMATION SOURCE (unrecogn ized section and content) DATE CREATED AUTHOR 12/30/2021 [facility] DATE CREATED AUTHOR AUTHOR'S ORGANIZ ATION 01/14/2022 [facility] DATE CREATED AUTHOR AUTHOR'S ORGANIZ ATION 11/29/2023 [facility] FOR RECORDS PERTAINING TO PATIENTS WHO ARE OR HAVE BEEN ENROLLED IN A CHEMICAL DEPENDENCY/SUBSTANCEABUSE PROGRAM, SOME INFORMATION MAY BE OMITTED. This clinical summary was aggregated from multiple sources. Caution should be exercised in using it in the provision of clinical care. This summary normalizes information from multiple sources, and as a consequence, information in this document may materially change the coding, format and clinical context of patient data. In addition, data may be omitted in some cases. CLINICAL DECISIONS SHOULD BE BASED ON THE PRIMARY CLINICAL RECORDS. [facility] [id number] provides no warranty or guarantee of the accuracy or completeness of information in this document.
== END 2023-12-03 07:35 | disposition home or self-care (01) ==
LOC: MAMMO 07:34
PROVIDERS: PCP Family Medicine; Visit Provider Family Medicine
DX: Z12.31 Encounter for screening mammogram for malignant neoplasm of breast (principal); Z80.8 Family history of malignant neoplasm of other organs or systems
CPT/HCPCS: 77063; 77067

== ENCOUNTER 2023-12-11 06:48 | Outpatient (OUT) | payer MEDICARE, SELFPAY ==
--- OUTSIDE RECORDS SUMMARY | 2023-12-11 06:53 | XMS_ITS | CCD ---
Author Organization [facility] Care Team Providers Care Industrial Service Technician Name Role Phone Jenny Long Unavailable DUKE, DR PARMJIT Wilson Admitting Unavailable NADERER, DR PARMJIT Wilson Attending Unavailable NADERER, DR PARMJIT Wilson Primary Care Unavailable NATASHAEBER, DR EARNESTINE Saldivar Consulting Unavailable NADERER, DR PARMJIT Wilson Consulting Unavailable NADERER, DR PARMJIT Wilson Admitting Unavailable NADERER, DR PRAMJIT Wilson Attending Unavailable NADERER, DR PARMJIT Wilson [...] NADERER, DR PARMJIT Wilson Primary Care Unavailable [place], DR Dey Consulting Unavailable NADERER, DR PARMJIT Wilson Consulting Unavailable ALEJANDRA, DR GALVAN Admitting Unavailable ALEJANDRA, DR GALVAN Attending Unavailable NADEREYariel, DR PARMJIT Wilson Primary Care Unavailable AARON, DR EARNESTINE Saldivar Consulting Unavailable ALEJANDRA, DR GALVAN Consulting Unavailable Mercedes, Jenny Attending Unavailable Mercedes, Jenny Admitting Unavailable NO FAMILY, PHYSICIAN Primary Care Unavailable Parmjit Wall MD Primary Care Provider DUKE, PARMJIT Attending Unavailable NADERER, PARMJIT Attending Unavailable SONJA JESUS Attending Unavailable NADERER, PARMJIT Attending Unavailable NADERER, PARMJIT Attending Unavailable NADERER, PARMJIT Attending Unavailable NADEREYariel, PARMJIT Attending Unavailable Medications Current Medications Medication Drug Class(es) Dates Sig (Normalized) Sig (Original) amoxicillin 875 mg / clavulanate 125 mg oral tablet (5 sources) Penicillin-class Antibacterial Start: 11-27-2023 End: 12-07-2023 [...] / zinc oxide 40 mg oral tablet (6 sources) Vitamin C Multiple Vitamin (Multivitamin Adult) tablet Orally Active aspirin 81 mg delayed release oral tablet (6 sources) Platelet Aggregation Inhibitor, Nonsteroidal Anti-inflammatory Drug aspirin 81 MG EC tablet 1 (one) time each day at the same time Active 24 hr buPROPion hydrochloride 150 mg extended release oral tablet (13 sources) Aminoketone Start: 08-01-2023 take 1 tablet [...] Ac tive escitalopram 20 mg oral tablet (7 sources) Serotonin Reuptake Inhibitor Start: 08-01-2023 take 1 tablet by mouth once daily escitalopram (Lexapro) 20 MG tablet Indications: Major depressive disorder, recurrent episode, mild (HCC) (CMS/HCC) Take 1 tablet (20 mg) by mouth Daily 90 tablet 3 08/01/2023 Active Escitalopram Oxa late 20 MG Oral for 90 Days Active loratadine 10 mg oral tablet (6 sources) loratadine (Claritin) 10 MG tablet 1 (one) time each day at the same time Active phentermine hydrochloride 37.5 mg oral tablet (2 sources) Sympathomimetic Amine Anorectic Start: End: take 30-30.9 tablets by mouth before mealtime phentermine (Adipex-P) 37.5 MG tablet Indications: Class 1 obesity due to excess calories without serious comorbidity with body mass index (BMI) of 30.0 to 30.9 in adult Take 1 tablet (37.5 mg) by mouth in the morning. Take before meals. 30 tablet 12/04/2023 01/03/2024 Active polyethylene glycol 3350 63811 mg powder for oral solution (6 sources) Osmotic Laxative take 17 g by mouth in the morning polyethylene glycol, PEG, 3350 (Miralax) 17 g packet Take 17 g by mouth in the morning. Active simvastatin 40 mg oral tablet (7 sources) HMG-CoA Reductase Inhibitor Start: simvastatin (Zocor) 40 MG tablet Indications: Dyslipidemia (CMS/HCC) TAKE 1 TABLET AT BEDTIME 90 tablet 3 06/21/2023 Active Simvastatin Acti ve Problems Active Problems Problem Classification Problem Date Documented Date Episodic/Chronic Diabetes mellitus without complication (12 sources) Prediabetes; Translations: [Prediabetes] Onset: 11-08-2021 Episodic Diseases of mouth; excluding dental (7 sources) Sialoadenitis; Translations: [Sialoadenitis, unspecified] Onset: 11-27-2023 Resolved: 12-04-2023 11-27-2023 Episodic Disorders of lipid metabolism (9 sources) Hyperlipidemia, unspecified; Translations: [Dyslipidemia] Onset: 11-10-2021 01-31-2023 Chronic Esophageal disorders (6 sources) Gastroesophageal reflux disease; Translations: [Gastro-esophageal reflux disease without esophagitis] Onset: 01-31-2023 01-31-2023 Chronic Mood disorders (6 sources) Recurrent major depressive episodes, mild ; Translations: [Major depressive disorder, recurrent, mild] Onset: 01-31-2023 01-31-2023 Chronic Other aftercare (1 source) Other assisted (current) drug therapy; Translations: [OTH GRANITE INSTALLER CURRENT DRUG THERAPY] Onset: 11-10-2021 Episodic Other aftercare (4 sources) Long-term current use of drug therapy; Translations: [Other assisted (current) drug therapy] Onset: 12-04-2023 12-04-2023 Episodic Other connective tissue disease (1 source) Pain in right hand; Translations: [Pain in right hand] Episodic Other connective tissue disease (2 sources) Pain in right hand; Translations: [Pain in right hand] Onset: 12-11-2021 Episodic Other ear and sense organ disorders (6 sources) Bilateral hearing loss; Translations: [Unspecified hearing loss, bilateral] Onset: 01-31-2023 01-31-2023 Chronic Other non-traumatic joint disorders (4 sources) Other specific joint derangements of right shoulder, not elsewhere classified; Translations: [OTH SPEC JOINT DERANG RT SHLDR NEC] Onset: 12-26-2021 Chronic Other non-traumatic joint disorders (1 source) Pain in right shoulder Episodic Other nutritional; endocrine; and metabolic disorders (4 sources) Obesity caused by energy imbalance; Translations: [Class 1 obesity due to excess calories without serious comorbidity with body mass index (BMI) of 30.0 to 30.9 in adult] Onset: 12-04-2023 12-04-2023 Chronic Other screening for suspected conditions (not mental disorders or infectious disease) (4 sources) Encounter for screening mammogram for malignant neoplasm of breast; Translations: [ENC SCR MAMMO MALIG NEOPLASM BREAST] Onset: 11-22-2021 Episodic Other upper respiratory disease (6 sources) Allergic rhinitis due to pollen; Translations: [Allergic rhinitis due to pollen] Onset: 01-31-2023 01-31-2023 Chronic Residual codes; unclassified (1 source) Family history of malignant neoplasm of other organs or systems; Translations: [FAM HX MALIG NEOPLASM OT ORGN/SYS] Onset: 11-24-2021 Episodic Spondylosis; intervertebral disc disorders; other back problems (6 sources) Degeneration of lumbar intervertebral disc; Translations: [...] Classification Problem Date Documented Da te Episodic/Chronic Other connective tissue disease (6 sources) Plantar fasciitis; Translations: [Plantar fascial fibromatosis] Onset: 01-31-2023 Resolved: 12-04-2023 01-31-2023 Episodic Other connective tissue disease (6 sources) Trochanteric bursitis of left hip; Translations: [...] by: EARNESTINE WALKER Date: 2021-12-27 07:51 Normal [facility] XR hand RT min 3V*on 022 XR hand RT min 3V* [facility] [employer] Other XR hand RT min 3V* [facility] [employer] Other XR hand RT min 3V* [address] [place] [address] Hello! [employer] Other XR hand RT min 3V* [place] [address] [employer]! [employer] Other XR hand RT min 3V* XRay Report Hello[employer] Other XR hand RT min 3V* Signed [employer] Other XR hand RT min 3V* Patient: Dashawn Nelson MR#: [id number] [employer] Other XR hand RT min 3V* [id number] [employer] Other XR hand RT min 3V* : 1955 Acct:[id number] [employer] Other XR hand RT min 3V* Age/Sex: 66 / F ADM Date: 12/11/21 [employer] Other XR hand RT min 3V* Loc: XDUCLY Room: Type: REG CLI [employer] Other XR hand RT min 3V* Attending Dr: Jenny KULKARNI [employer] Other XR hand RT min 3V* Copies to: SHAD Rivas [employer] Other XR hand RT min 3V* Ordering Provider: SHAD Rivas [employer] Other XR hand RT min 3V* Date of Service: 12/11/21 [employer] Other XR hand RT min 3V* XR/XR hand RT min 3V*: Acute pain of right shoulder;Right hand pain [employer] Other XR hand RT min 3V* XR hand RT min 3V* 12/11/2021 9:25 AM [employer] Other XR hand RT min 3V* SIGNS AND SYMPTOMS: Pain in right hand after fall [employer] Other XR hand RT min 3V* PROTOCOL: Frontal, lateral, and oblique radiographs of the right hand [employer] Other XR hand RT min 3V* COMPARISON: None [employer] Other XR hand RT min 3V* FINDINGS: [employer] Other XR hand RT min 3V* There is mild narrowing of the joint spaces of the thumb. There is no evidence of fracture. No [employer] Other XR hand RT min 3V* dislocation or subluxation. No significant soft tissue swelling. [employer] Other XR hand RT min 3V* XR/XR hand RT min 3V* [employer] Other XR hand RT min 3V* IMPRESSION: [employer] Other XR hand RT min 3V* No acute bony injury. [employer] Other XR hand RT min 3V* Mild degenerative changes are noted in the thumb. [employer] Other XR hand RT min 3V* Impression dictated by: Jose Castro M.D.12/11/2021 10:00 AM [employer] Other XR hand RT min 3V* Dictation Location: [place] [address] [employer] Other XR hand RT min 3V* Transcribed By: DARI 12/11/21 1000 [employer] Other XR hand RT min 3V* Dictated By: Jose Castro II, MD 12/11/21957 [facility] [employer] Other XR hand RT min 3V* Signed By: [facility] [employer] Other XR hand RT min 3V* 12/11/21 1000 [facility] [employer] Other XR hand RT min 3V* [facility] [place] [address] [place], [place] [id number] XRay Report Signed Patient: Dashawn Nelson MR#: [id number] : 1955 Acct:[id number] Age/Sex: 66 / F ADM Date: 12/11/21 Loc: XDUC Room: Type: [facility] Attending Dr: Jenny KULKARNI Copies to: SHAD [...] Jose Castro M.D.12/11/2021 10:00 AM Dictation Location: [place] [address] Transcribed By: [facility] 12/11/21999 Dictated By: Jose Castro II, MD 12/11/21957 Signed By: 12/11/21999 Normal [facility] XR shoulder RT min 2V*on XR shoulder RT min 2V* XR/XR shoulder RT min 2V*: Acute pain of right shoulder;Right hand pain [employer] Other XR shoulder RT min 2V* XR shoulder RT min 2V* 12/11/2021 9:25 AM [employer] Other XR shoulder RT min 2V* SIGNS AND SYMPTOMS: Pain in right shoulder and right hand after fall [employer] Other XR shoulder RT min 2V* PROTOCOL: Frontal, Grashey, and scapular Y views of the right shoulder [employer] Other XR shoulder RT min 2V* There is mild narrowing of the glenohumeral joint. Mild degenerative changes are noted in the [employer] Other XR shoulder RT min 2V* acromioclavicular joint. There is subcortical sclerosis at the greater tuberosity of the humerus. [employer] Other XR shoulder RT min 2V* There is no evidence of fracture or dislocation. The visualized right hemithorax is grossly intact. [employer] Other XR shoulder RT min 2V* XR/XR shoulder RT min 2V* [employer] Other XR shoulder RT min 2V* No fracture or dislocation. [employer] Other XR shoulder RT min 2V* Degenerative changes are noted with findings suspicious for underlying rotator cuff abnormalities. [employer] Other XR shoulder RT min 2V* Impression dictated by: Jose Castro M.D.12/11/2021 10:17 AM [employer] Other XR shoulder RT min 2V* Transcribed By: DARI 12/11/21 1017 [employer] Other XR shoulder RT min 2V* Dictated By: Jose Castro II, MD 12/11/21 1016 [employer] Other XR shoulder RT min 2V* 12/11/21 1017 [employer] Other XR shoulder RT min 2V* [facility] [place] [address] [place] [address] XRay Report Signed Patient: Dashawn Nelson MR#: [id number] : 1955 Acct:[id number] Age/Sex: 66 / F ADM Date: 12/11/21 Loc: XDUCLY Room: Type: [facility] Attending Dr: Jenny KULKARNI Copies to: SHAD [...] Jose Castro M.D.12/11/2021 10:17 AM Dictation Location: [place] [address] Transcribed By: [facility] 12/11/21 1017 Dictated By: Jose Castro II, MD 12/11/21 1016 Signed By: 12/11/21 1017 [facility] MG MAMM SCREEN 3D CELINA CADon 11-22-2021 MG MAMM SCREEN 3D CELINA CAD Patient: DASHAWN NESLON. Exam Date: 11/22/2021 : 1955 Gender:F Ordering : DR PARMJIT WALL . Admission #: [id number] Family : Order #: [id number] CLICK HERE TO VIEW EXAM RADIOLOGY REPORT [...] pancreatic cancer at age 73. LOCATION: [facility] BREAST COMPOSITION: Heterogeneously dense,which may obscure small [...] MD on 11/22/2021 at 09:58 Normal [facility] CBC AUTO DIFFon 11-08-2021 BASO # 0.0 103/ul Normal 0.0-0.1 [facility] Comment on above: Performed By: #### C BC #### [facility] [address] [place] [address] Dr. Joao Herrmann Basophils/100 WBC (Bld) 0.6 % Normal 0.2-2.0 [facility] Comment on above: Performed By: #### C BC #### [facility] [address] [place] [address] Dr. Joao Herrmann EO # 0.3 103/ul Normal 0.0-0.7 [facility] Comment on above: Performed By: #### C BC #### [facility] [address] [place] [address] Dr. Joao Herrmann Eosinophils/100 WBC (Bld) 4.3 % Normal 0.9-7.0 [facility] Comment on above: Performed By: #### C BC #### [facility] [address] [place] [address] Dr. Joao Herrmann Erythrocyte distribution width (RBC) [Ratio] 12.5 % Normal 11.0-15.0 [facility] Comment on above: Performed By: #### C BC #### [facility] [address] [place] [address] Dr. Joao Herrmann Hematocrit (Bld) [Volume fraction] 41.1 % Normal 36.0-48.0 [facility] Comment on above: Performed By: #### C BC #### [facility] [address] [place] [address] Dr. Joao Herrmann Hemoglobin (Bld) [Mass/Vol] 13.2 g/dL Normal 12.0-16.0 [facility] Comment on above: Performed By: #### C BC #### [facility] [address] [place] [address] Dr. Joao Herrmann IG # 0.01 10e3/ul Normal 0.00-0.03 [facility] Comment on above: Performed By: #### C BC #### [facility] [address] [place] [address] Dr. Joao Herrmann IG % 0.1 % Normal 0.0-0.5 [facility] Comment on above: Performed By: #### C BC #### [facility] [address] [place] [address] Dr. Joao Herrmann LYMPH # 2.1 103/ul Normal 1.2-3.8 [facility] Comment on above: Performed By: #### C BC #### [facility] [address] [place] [address] Dr. Joao Herrmann Lymphocytes/100 WBC (Bld) 31.5 % Normal 20.5-60.0 [facility] Comment on above: Performed By: #### C BC #### [facility] [address] [place] [address] Dr. Joao Herrmann MANUAL DIFF REQ NO Normal [facility] Comment on above: Performed By: #### C BC #### [facility] [address] [place] [address] Dr. Joao Herrmann MCH (RBC) [Entitic mass] 29.1 pg Normal 26.7-34.0 [facility] Comment on above: Performed By: #### C BC #### [facility] [address] [place] [address] [address] Joao Herrmann MCHC (RBC) [Mass/Vol] 32.1 g/dL Normal 29.9-35.2 [facility] Comment on above: Performed By: #### C BC #### [facility] [address] [place] [address] [address] Joao Herrmann MCV (RBC) [Entitic vol] 90.7 fL Normal 81.0-99.0 [facility] Comment on above: Performed By: #### C BC #### [facility] [address] [place] [address] Dr. Joao Herrmann MONO # 0.5 103/ul Normal 0.3-0.8 [facility] Comment on above: Performed By: #### C BC #### [facility] [address] [place] [address] Dr. Joao Herrmann Monocytes/100 WBC (Bld) 7.9 % Normal 1.7-12.0 [facility] Comment on above: Performed By: #### C BC #### [facility] [address] [place] [address] Dr. Joao Herrmann NEUT # 3.7 103/ul Normal 1.4-6.5 [facility] Comment on above: Performed By: #### C BC #### [facility] [address] [place] [address] Dr. Joao Herrmann Neutrophils/100 WBC (Bld) 55.6 % Normal 43.0-75.0 [facility] Comment on above: Performed By: #### C BC #### [facility] [address] [place] [address] [address] Joao Herrmann Platelet mean volume (Bld) [Entitic vol] 10.2 fL Normal 9.5-13.5 [facility] Comment on above: Performed By: #### C BC #### [facility] [address] [place] [address] Dr. Joao Herrmann PLT 245 103/ul Normal 150-450 [facility] Comment on above: Performed By: #### C BC #### [facility] [address] [place] [address] [address] Joao Herrmann RBC 4.53 106/ul Normal 4.20-5.40 [facility] Comment on above: Performed By: #### C BC #### [facility] [address] [place] [address] [address] Joao Herrmann WBC 6.7 103/ul Normal 4.0-11.0 [facility] Comment on above: Performed By: #### C BC #### [facility] [address] [place] [address] [address] Joao Herrmann GLYCOHEMOGLOBIN A1Con 2021 ADA RECOMMENDATION SEE BELOW Normal [facility] Comment on above: Result Comment: ADA RECOMMENDED LIMIT 4.0 - 6.0 ADA THERAPEUTIC TARGET < 7.0 ACTION SUGGESTED > 7.0 Performed By: #### A 1C #### [facility] [address] [place] [address] Dr. Joao Herrmann Glucose [Mass/Vol] 114 mg/dL Normal [facility] Comment on above: Performed By: #### A 1C #### [facility] [address] [place] [address] Dr. Joao Herrmann HbA1c (Bld) [Mass fraction] 5.6 % Normal 4.5-6.2 [facility] Comment on above: Performed By: #### A 1C #### [facility] [address] [place] [address] Dr. Joao Herrmann LIPID PROFILEon 11-08-2021 CHOL-HDL RATIO NORM SEE BELOW Normal [facility] Comment on above: Result Comment: 3.3 - 4.4 LOW RISK 4.4 - 7.1 AVERAGE RISK 7.1 - 11.0 MODERATE RISK >11.0 HIGH RISK Performed By: #### L IPID, BMP, LIVER #### [facility] [address] [place] [address] Dr. Joao Herrmann Cholesterol [Mass/Vol] 186 mg/dL Normal <=200 [facility] Comment on above: Performed By: #### L IPID, BMP, LIVER #### [facility] [address] [place] [address] [address] Joao Herrmann Cholesterol in HDL [Mass/Vol] 71 mg/dL Critically high 40-60 [facility] Comment on above: Performed By: #### L IPID, BMP, LIVER #### [facility] [address] [place] [address] [address] Joao Herrmann Cholesterol in LDL [Mass/Vol] 97.4 mg/dL Normal [facility] Comment on above: Performed By: #### L IPID, BMP, LIVER #### [facility] [address] [place] [address] [address] Joao Herrmann Cholesterol.total/C holesterol in HDL [Mass ratio] 2.6 {ratio} Normal [facility] Comment on above: Performed By: #### L IPID, BMP, LIVER #### [facility] [address] [place] [address] [address] Joao Herrmann HDL NORMAL > or = 60 mg/dl - LO W CARDIOVASCULAR RISK <40 mg/dl - HIGH CARDIOVASCULAR RISK Normal [facility] Comment on above: Performed By: #### L IPID, BMP, LIVER #### [facility] [address] [place] [address] [address] Joao Herrmann LDL CALC NORMAL SEE BELOW Normal [facility] Comment on above: Result Comment: <100 mg/dl OPTIMAL 100 - 129 mg/dl NEAR OR ABOVE OPTIMAL 130 - 159 mg/dl BORDERLINE HIGH 160 - 189 mg/dl HIGH >190 mg/dl VERY HIGH Performed By: #### L IPID, BMP, LIVER #### [facility] [address] [place] [address] [address] Joao Herrmann Triglyceride [Mass/Vol] 88 mg/dL Normal <=150 [facility] Comment on above: Performed By: #### L IPID, BMP, LIVER #### [facility] [address] [place] [address] [address] Joao Herrmann VLDL CALC 17.6 mg/dL Normal [facility] Comment on above: Performed By: #### L IPID, BMP, LIVER #### [facility] [address] [place] [address] [address] Joao Herrmann LIVER PROFILEon 11-08-2021 Albumin [Mass/Vol] 4.3 g/dL Normal 3.4-5.0 [facility] Comment on above: Performed By: #### L IPID, BMP, LIVER #### [facility] [address] [place] [address] [address] Joao Herrmann Albumin/Globulin [Mass ratio] 1.2 {ratio} Normal [facility] Comment on above: Performed By: #### L IPID, BMP, LIVER #### [facility] [address] [place] [address] [address] Joao Herrmann ALP [Catalytic activity/Vol] 79 U/L Normal 46-116 [facility] Comment on above: Performed By: #### L IPID, BMP, LIVER #### [facility] [address] [place] [address] [address] Joao Herrmann ALT [Catalytic activity/Vol] 32 U/L Normal 14-59 [facility] Comment on above: Performed By: #### L IPID, BMP, LIVER #### [facility] [address] [place] [address] [address] Joao Herrmann AST [Catalytic activity/Vol] 26 U/L Normal 15-37 [facility] Comment on above: Performed By: #### L IPID, BMP, LIVER #### [facility] [address] [place] [address] [address] Joao Herrmann BILI, CONJUGATED 0.1 mg/dL Normal 0.0-0.2 [facility] Comment on above: Performed By: #### L IPID, BMP, LIVER #### [facility] [address] [place] [address] [address] Joao Herrmann Bilirubin [Mass/Vol] 0.3 mg/dL Normal 0.2-1.0 [facility] Comment on above: Performed By: #### L IPID, BMP, LIVER #### [facility] [address] [place] [address] [address] Joao Herrmann Globulin (S) [Mass/Vol] 3.7 g/dL Normal [facility] Comment on above: Performed By: #### L IPID, BMP, LIVER #### [facility] [address] [place] [address] Dr. Joao Herrmann Protein [Mass/Vol] 8.0 g/dL Normal 6.4-8.2 [facility] Comment on above: Performed By: #### L IPID, BMP, LIVER #### [facility] [address] [place] [address] Dr. Joao Herrmann PROF CHEM 8 (BAS METB)on Anion gap [Moles/Vol] 12.7 mmol/L Normal [facility] Comment on above: Performed By: #### L IPID, BMP, LIVER #### [facility] [address] [place] [address] Dr. Joao Herrmann Calcium [Mass/Vol] 9.5 mg/dL Normal 8.5-10.1 [facility] Comment on above: Performed By: #### L IPID, BMP, LIVER #### [facility] [address] [place] [address] Dr. Joao Herrmann Chloride [Moles/Vol] 101 mmol/L Normal 98-107 [facility] Comment on above: Performed By: #### L IPID, BMP, LIVER #### [facility] [address] [place] [address] Dr. Joao Herrmann CO2 [Moles/Vol] 27.9 mmol/L Normal 21.0-32.0 [facility] Comment on above: Performed By: #### L IPID, BMP, LIVER #### [facility] [address] [place] [address] Dr. Joao Herrmann Creatinine [Mass/Vol] 0.97 mg/dL Normal 0.55-1.02 [facility] Comment on above: Performed By: #### L IPID, BMP, LIVER #### [facility] [address] [place] [address] Dr. Joao Herrmann EGFR-AF SWEDISH >60 Normal >=60 [facility] Comment on above: Performed By: #### L IPID, BMP, LIVER #### [facility] [address] [place] [address] Dr. Joao Herrmann EGFR-NON AF SWEDISH 57 mL/min/1.73m2 Critically low >=60 [facility] [facility] Comment on above: Performed By: #### L IPID BMP, LIVER #### [facility] [address] [address] [address] Joao Herrmann Glucose [Mass/Vol] 95 mg/dL Normal 74-106 [facility] Comment on above: Performed By: #### L IPID BMP, LIVER #### [facility] [address] [address] [address] Joao Herrmann Potassium [Moles/Vol] 4.6 mmol/L Normal 3.5-5.1 [facility] Comment on above: Performed By: #### L IPID BMP, LIVER #### [facility] [address] [place] [address] Dr. Joao Herrmann Sodium [Moles/Vol] 137 mmol/L Normal 136-145 [facility] Comment on above: Performed By: #### L IPID BMP, LIVER #### [facility] [address] [address] [address] Joao Herrmann Urea nitrogen [Mass/Vol] 13.0 mg/dL Normal 7.0-18.0 [facility] Comment on above: Performed By: #### L IPID BMP, LIVER #### [facility] [address] [address] [address] Joao Herrmann Urea nitrogen/Creatinine [Mass ratio] 13.4 mg/mg Normal [facility] Comment on above: Performed By: #### L IPID, BMP, LIVER #### [facility] [address] [place] [address] Dr. Joao Herrmann XR LSPINE MIN 4 VIEWSon 08-0 XR LSPINE MIN 4 VIEWS EXAMINATION: XR [...] by: EARNESTINE WALKER Date: 2021-09-13 08:48 Normal [facility] XR RIBS LT PA Antonette 2 [...] by: EARNESTINE WALKER Date: 2021-03-14 10:16 Normal [facility] Vital Signs Date Time Vital Sign Value Performing Clinician Facility 12-04-2023 09:36-0400 Body mass index (BMI) [Ratio] 29.76 kg/m2 Parmjit Wall MD Work Phone: [facility] 12-04-2023 09:36-0400 Body temperature 97.3 [degF] Parmjit Wall MD Work Phone: [facility] 12-04-2023 09:36-0400 Body weight 83.64 kg Parmjit Wall MD Work Phone: [facility] 12-04-2023 09:36-0400 Diastolic blood pressure 72 mm[Hg] Parmjit Wall MD Work Phone: [facility] 12-04-2023 09:36-0400 Heart rate 73 /min Parmjit Wall MD Work Phone: [facility] 12-04-2023 09:36-0400 SaO2% (BldA) [Mass fraction] 98 % Parmjit Wall MD Work Phone: [facility] 12-04-2023 09:36-0400 Systolic blood pressure 120 mm[Hg] Parmjit Wall MD Work Phone: [facility] 11-27-2023 11:44-0400 Body height 167.6 cm Parmjit Wall MD Work Phone: [facility] 11-27-2023 11:44-0400 Body mass index (BMI) [Ratio] 29.54 kg/m2 Parmjit Wall MD Work Phone: [facility] 11-27-2023 11:44-0400 Body temperature 96.21 [degF] Parmjit Wall MD Work Phone: [facility] 11-27-2023 11:44-0400 Body weight 83.01 kg Parmjit Wall MD Work Phone: [facility] 11-27-2023 11:44-0400 Diastolic blood pressure 66 mm[Hg] Parmjit Wall MD Work Phone: [facility] 11-27-2023 11:44-0400 Heart rate 91 /min Parmjit Wall MD Work Phone: [facility] 11-27-2023 11:44-0400 Respiratory rate 20 /min Parmjit Wall MD Work Phone: [facility] 11-27-2023 11:44-0400 SaO2% (BldA) [Mass fraction] 97 % Parmjit Wall MD Work Phone: [facility] 11-27-2023 11:44-0400 Systolic blood pressure 130 mm[Hg] Parmjit Wall MD Work Phone: [facility] 12-11-2021 10:00-0400 Body height 170.18 cm Jenny Long Other [facility] Other 12-11-2021 10:00-0400 Body mass index (BMI) [Ratio] 28.97 kg/m2 Jenny Long Other [facility] Other 12-11-2021 10:00-0400 Body temperature 97.7 [degF] Jenny Long Other [facility] Other 12-11-2021 10:00-0400 Body weight 83.92 kg Jenny Long Other [facility] Other 12-11-2021 10:00-0400 Diastolic blood pressure 83 mm[Hg] Jenny Long Other [facility] Other 12-11-2021 10:00-0400 Respiratory rate 16 /min Jenny Long Other [facility] Other 12-11-2021 10:00-0400 SaO2% (BldA) [Mass fraction] 99 % Jenny Long Other [facility] Other 12-11-2021 10:00-0400 Systolic blood pressure 150 mm[Hg] Jenny Long Other [facility] Other Encounters Encounter Date Encounter Type Care Provider Facility Start: 12-04-2023 End: 12-04-2023 Bamboo flowsheet Parmjit Wall MD Work Phone: [facility] Start: 12-04-2023 End: 12-04-2023 Bamboo flowsheet Parmjit Wall MD Work Phone: [facility] Start: 12-04-2023 End: 12-04-2023 Patient encounter procedure Parmjit Wall MD Work Phone: [facility] Work Phone: Start: 12-04-2023 End: 12-04-2023 Postop follow up visit related to original px Parmjit Wall MD Work Phone: [facility] Comment on above: Medicare annual well ness visit, subsequent (Primary Dx); Dyslipidemia (CMS/HCC); Prediabetes; Class 1 obesity due to excess calories without serious comorbidity with body mass index (BMI) of 30.0 to 30.9 in adult; Encounter for long-term (current) use of medications Start: 12-04-2023 End: 12-04-2023 ambulatory PARMJIT WALL Not Available Start: 11-27-2023 End: 11-27-2023 Bamboo flowsheet Parmjit Wall MD Work Phone: [facility] Start: 11-27-2023 End: 11-27-2023 Bamboo Propancheet Parmjit Wall MD Work Phone: [facility] Start: 11-27-2023 End: 11-27-2023 Office outpatient visit 15 minutes Parmjit Wall MD Work Phone: [facility] Comment on above: Sialadenitis (Primar y Dx) Start: 11-27-2023 End: 11-27-2023 ambulatory PARMJIT BANUELOSR Not Available Start: 10-29-2023 End: 10-29-2023 ambulatory PARMJIT NADERER Not Available Start: 08-01-2023 End: 08-01-2023 ambulatory PARMJIT NADERER Not Available Start: 05-08-2023 End: 05-08-2023 ambulatory PARMJIT NADERER Not Available Start: 01-31-2023 End: 01-31-2023 ambulatory PARMJIT NADERER Not Available Start: 01-23-2023 End: 01-23-2023 ambulatory SONJA JESUS Not Available Start: 12-26-2021 End: 12-27-[address] COLE ALEJANDRA Facility: Start: 12-11-2021 Office outpatient ne w 20 minutes Jenny Long [facility] Start: 12-11-2021 End: 12-11-2021 ambulatory Jenny Long [facility] [employer] Other Start: 12-11-2021 End: 12-11-2021 Patient encounter procedure [employer] BURNER-C Jenny Long Work Phone: [facility] [place] Start: 11-22-2021 End: 11-23-[address] PARMJIT WALL Facility:[facility] Start: 11-08-2021 End: 11-09-[address] PARMJIT WALL Facility:[facility] Start: 09-12-2021 End: 09-13-[address] PARMJIT WALL Facility:[facility] Start: 03-14-2021 End: 03-15-[address] PARMJIT WALL Facility:[facility] Procedures Date Procedure Procedure Detail Performing Clinician Start: 12-03-2023 Mammography Parmjit cazares MD Work Phone: Start: 11-23-2022 Mammography Parmjit cazares MD Work Phone: Start: 12-11-2021 Plain X-ray of right hand [employer] Jenny Mercedes Work Phone: Start: 12-11-2021 Plain X-ray of right shoulder [employer] Jenny Mercedes Work Phone: Start: 02-16-2020 Colonoscopy Parmjit cazares MD Work Phone: Plan of Treatment Date Care Activity Detail Author Start: 02-15-2030 Screening for malign ant neoplasm of colon [facility] Start: 12-02-2024 Screening for malign ant neoplasm of breast Mammogram [facility] Start: 01-28-2024 End: 01-28-2024 Patient encounter procedure 01/28/2024 8:30 AM EST Office Visit [facility] [address] [place] [address] Sonja Jesus APRN-PANTOGRAPH OPERATOR [address] [place] [address] [facility] Start: 01-09-2024 End: 01-09-2024 Patient encounter procedure 01/09/2024 8:45 AM EST Office Visit [facility] [address] [place] [phone] Parmjit Wall MD [address] [place] [phone] [facility] Start: 12-04-2023 End: 12-03-2024 Basic metabolic 1998 panel - Serum or Plasma Basic metabolic panel Lab Routine Encounter for long-term (current) use of medications Expected: 12/04/2023 (Approximate), Expires: 12/03/2024 [facility] Comment on above: Expected: 12/04/2023 (Approximate), Expires: 12/03/2024 Start: 12-04-2023 End: 12-03-2024 CBC W Auto Differential panel - Blood CBC and differential Lab Routine Encounter for long-term (current) use of medications Expected: 12/04/2023 (Approximate), Expires: 12/03/2024 [facility] Comment on above: Expected: 12/04/2023 (Approximate), Expires: 12/03/2024 Start: 12-04-2023 End: 12-03-2024 Hemoglobin A1c/Hemoglobin.total in Blood Hemoglobin A1c Lab Routine Prediabetes Expected: 12/04/2023 (Approximate), Expires: 12/03/2024 [facility] Work Phone: Comment on above: Expected: 12/04/2023 (Approximate), Expires: 12/03/2024 Start: 12-04-2023 End: 12-03-2024 Hepatic function 2000 panel - Serum or Plasma Hepatic function panel Lab Routine Encounter for long-term (current) use of medications Expected: 12/04/2023 (Approximate), Expires: 12/03/2024 [facility] Comment on above: Expected: 12/04/2023 (Approximate), Expires: 12/03/2024 Start: 12-04-2023 End: 12-03-2024 Lipid 1996 panel - Serum or Plasma Lipid panel Lab Routine Dyslipidemia (CMS/HCC) Expected: 12/04/2023 (Approximate), Expires: 12/03/2024 [facility] Comment on above: Expected: 12/04/2023 (Approximate), Expires: 12/03/2024 Start: 12-04-2023 End: 12-03-2024 Thyrotropin [Units/volume] in Serum or Plasma TSH Lab Routine Class 1 obesity due to excess calories without serious comorbidity with body mass index (BMI) of 30.0 to 30.9 in adult Expected: 12/04/2023 (Approximate), Expires: 12/03/2024 [facility] Comment on above: Expected: 12/04/2023 (Approximate), Expires: 12/03/2024 Start: 12-04-2023 End: 12-04-2023 [facility] Comment on above: Arrived Start: 11-27-2023 End: 11-27-2023 Patient encounter procedure 11/27/2023 11:45 AM EDT Office Visit [facility] [address] [place] [phone] Parmjit Wall MD [address] [place] [phone] [facility] Comment on above: Arrived Start: 11-24-2023 Screening for malign ant neoplasm of breast Mammogram [facility] Start: 11-10-2023 Medicare Annual Wellness (AWV) Medicare Annual Wellness (AWV) [facility] Start: 10-14-2023 Influenza vaccination Influenza Vacc ine (#1) [facility] Start: 1955 Screening for malign ant neoplasm of colon [facility] Immunizations Immunization Date Immunization Notes Care Provider Fa cility 11-28-2022 influenza virus vacc ine, unspecified formulation Parmjit Wall MD Work Phone: [facility] Payers Date Payer Category Payer Self-pay 2021 Medicare (Managed Care) [employer] [id number] 1959 Unknown [id number] 1954 Unknown [id number] [id number]. 2.593 1954 Unknown [id number] 2.16.840.1.274353.3.579. 2.593 1954 Unknown [id number] 2.16.840.1.052016.3.579. 2.593 1954 Unknown [id number] 2.16.840.1.986984.3.579. 2.593 1954 Unknown [id number] 2.16.840.1.707737.3.579. 2.593 1954 Unknown [id number] 2.16.840.1.967136.3.579. 2.1259 1954 Unknown [id number] 2.16.840.1.056659.3.579. 2.1259 1954 Unknown [id number] 2.16.840.1.091922.3.579. 2.1259 1954 Unknown [id number] 2.16.840.1.160429.3.579. 2.1259 1954 Unknown [id number] 2.16.840.1.888406.3.579. 2.1259 1954 Unknown [id number] 2.16.840.1.049605.3.579. 2.1259 1954 Unknown [id number] 2.16.840.1.615158.3.579. 2.1259 Blue Cross Blue Shield [id number] [id number] Unknown [id number] 2.16.840.1.970297.3.579. 2.531 Social History Date Type Detail Facility Start: 01-24-2023 End: 05-07-2023 Sex Assigned At [facility] Start: 1955 Sex Assigned At Female [facility] Start: 02-16-2023 Tobacco smoking status NHIS Ex-smoker [facility] End: 08-31-2010 History of tobacco use Current smoker [facility] End: 08-31-2010 History of tobacco use Cigarette Smoker [facility] Start: 02-16-2023 Tobacco use and exposure Smokeless tobacco non-user [facility] Start: 10-29-2023 End: 12-04-2023 Alcoholic beverage intake Current drinker of alcohol [...] Only a little [facility] (I/We) worried wheth er (my/our) food would run out before [...] [facility] History of Present illness Narrative 12-04-2023 Parmjit Wall MD - 12/04/2023 9:59 AM Sreekanth Wall MD - 12/04/2023 9:59 AM Sreekanth Wall MD - 12/04/2023 9:30 AM EDT Note Date & Type Note Facility 12-04-2023 History of Presen t illness Narrative Associated Problem(s): Medicare annual wellness visit, subsequent Due for labs. Discussed proper diet and regular aerobic exercise. Need aerobic exercise 5-6 days a week for 30 minutes at a time. Smaller portions and limit total calories. Colonoscopy every 10 years. Tetanus every 10 years. Advised not to smoke. Discussed daily Aspirin therapy. Associated Problem(s): Class 1 obesity due to excess calories without serious comorbidity with body mass index (BMI) of 30.0 to 30.9 in adult Patient overweight and difficult time losing weight. Discussed proper diet and regular aerobic exercise. Recommend Weight Watchers and need to limit calories and smaller portions. Need to increase activity and regular aerobic exercise several days a week for 30 minutes at a time. Interested in adipex and warned of potential cardiac side effects. Script written for first month and will need to recheck weight in 1 month. OARRS reviewed. Continue medications as prescribed. Images from the original note were not included. Subjective Patient ID: Dashawn Nelson is a 68 y.o. female who presents for No chief complaint on file.. Presents for medicare annual wellness visit. Patient feels well today. Weight up 12 pounds in the past year. Injured knee over summer and not active for 2 months. Now better and resumed activity. Tries to walk or bike. Tries to watch diet and eat healthy. Increased fruits and vegetables. Smaller portions and limits snacking. Tries to limit total daily calories. Due for labs. Interested in weight loss medication. Review of Systems Respiratory: Negative for cough, [...] are equal, round, and reactive to light. Cardiovascular: Rate and Rhythm: Normal rate and regular rhythm. Heart sounds: No murmur heard. No friction rub. No gallop. Pulmonary: Effort: Pulmonary effort is normal. Breath sounds: Normal breath sounds. No wheezing, rhonchi or rales. Abdominal: General: Bowel sounds are normal. There is no distension. Palpations: Abdomen is soft. Tenderness: There is no abdominal tenderness. There is no guarding or rebound. Musculoskeletal: General: No swelling or tenderness. Cervical back: Neck supple. Right lower leg: No edema. Left lower leg: No edema. Skin: Findings: No erythema or rash. Neurological: General: No focal deficit present. Mental Status: She is alert and oriented to person, place, and time. Cranial Nerves: No cranial nerve deficit. Motor: No weakness. Gait: Gait normal. Assessment/Plan Problem List Items Addressed This Visit Dyslipidemia ([facility]) Relevant Orders Lipid panel Prediabetes Relevant Orders Hemoglobin A1c Medicare annual wellness visit, subsequent - Primary Due for labs. Discussed proper diet and regular aerobic exercise. Need aerobic exercise 5-6 days a week for 30 minutes at a time. Smaller portions and limit total calories. Colonoscopy every 10 years. Tetanus every 10 years. Advised not to smoke. Discussed daily Aspirin therapy. Encounter for long-term (current) use of medications Relevant Orders Basic metabolic panel CBC and differential Hepatic function panel Class 1 obesity due to excess calories without serious comorbidity with body mass index (BMI) of 30.0 to 30.9 in adult Patient overweight and difficult time losing weight. Discussed proper diet and regular aerobic exercise. Recommend Weight Watchers and need to limit calories and smaller portions. Need to increase activity and regular aerobic exercise several days a week for 30 minutes at a time. Interested in adipex and warned of potential cardiac side effects. Script written for first month and will need to recheck weight in 1 month. OARRS reviewed. Continue medications as prescribed. Relevant Medications phentermine (Adipex-P) 37.5 MG tablet Other Relevant Orders TSH documented in this encounter [facility] History of Present illness Narrative [...] 875-125 MG tablet documented in this encounter [facility] Evaluation note 12-11-2021 Note Date & Type [...] M79.641) Nov, Other Contusion material was printed [facility] Other Clinical Note 09-13-2021 Note Date & [...] by: EARNESTINE WALKER Date: 2021-09-13 08:46 [facility] Evaluation note Note Date & Type Note Facility Evaluation note No assessment information availa [facility] Work Phone: Evaluation note Note Date [...] Sialadenitis- Primary Sialoadenitis documented in this encounter [facility] Evaluation note Note Date & Type Note [...] disc Seasonal allergic rhinitis due to pollen Medicare annual wellness visit, subsequent- Primary Dyslipidemia (CMS/HCC) Other and unspecified hyperlipidemia Prediabetes Other abnormal glucose Class 1 obesity due to excess calories without serious comorbidity with body mass index (BMI) of 30.0 to 30.9 in adult Encounter for long-term (current) use of medications Encounter for long-term (current) use of other medications documented in this encounter [facility] History general Narrative - Reported Note Date & Type Note Facility History general Narrative - Reported Type Medical History depression Medical History high cholesterol [facility] Other Summary Purpose Family History No Family [...] Inactive Member Role Status Dates Jenny Long , [employer]-C Attending Provider Active Industrial Service Technician Relationship Specialty Start Date End Date Parmjit Wall MD [address] [place] [phone] PCP - General Family Medicine 05/08/23 Industrial Service Technician Relationship Specialty Start Date End Date Parmjit Wall MD [address] [place] [phone] PCP - General Family Medicine 05/08/23 Industrial Service Technician Relationship Specialty Start Date End Date Parmjit Wall MD [address] [place] [phone] PCP - General Family Medicine 05/08/23 Industrial Service Technician Relationship Specialty Start Date End Date Parmjit Wall MD [address] [place] [phone] PCP - General Family Medicine 05/08/23 Goals (unrecognized section and content) Goals may be documented in a n alternate section INFORMATION SOURCE (unrecogn ized section and content) DATE CREATED AUTHOR 12/30/2021 Dickson Lombardo [facility] DATE CREATED AUTHOR AUTHOR'S ORGANIZ ATION 01/14/2022 [facility] DATE CREATED AUTHOR AUTHOR'S ORGANIZ ATION 12/06/2023 [facility] EPIC FOR RECORDS PERTAINING TO PATIENTS WHO ARE [...] BE BASED ON THE PRIMARY CLINICAL RECORDS. [facility] [employer] [facility]. provides no warranty or guarantee of the accuracy or completeness of information in this document.
[2023-12-11 07:33] LABS: Basophils Absolute Auto 0.1 10^3/uL (0.0-0.1); Basophils Percent Auto 1.1 % (0.2-2.0); Eosinophils Absolute Auto 0.2 10^3/uL (0.0-0.7); Eosinophils Percent Auto 4.5 % (0.9-7.0); Hemoglobin 12.9 g/dL (12.0-16.0); Lymphocytes Absolute Auto 1.8 10^3/uL (1.2-3.8); Lymphocytes Percent Auto 37.8 % (20.5-60.0); Mean Corpuscular HGB Conc 33.1 g/dL (29.9-35.2); Mean Corpuscular Hemoglobin 30.1 pg (26.7-34.0); Mean Corpuscular Volume 91.1 fL (81.0-99.0); Mean Platelet Volume 9.7 fL (9.5-13.5); Monocytes Absolute Auto 0.4 10^3/uL (0.3-0.8); Monocytes Percent Auto 9.3 % (1.7-12.0); Neutrophils Absolute Auto 2.2 10^3/uL (1.4-6.5); Neutrophils Percent Auto 47.3 % (43.0-75.0); Platelet Count 261 10^3/uL (150-450); Red Blood Count 4.28 10^6/uL (4.20-5.40); Red Cell Distribution Width 12.3 % (11.0-15.0); White Blood Count 4.7 10^3/uL (4.0-11.0)
[2023-12-11 08:00] LABS: Alanine Aminotransferase 28 U/L (14-59); Albumin Globulin Ratio 0.9; Albumin Level 3.6 g/dL (3.4-5.0); Alkaline Phosphatase 71 U/L (46-116); Anion Gap 12.8; Aspartate Amino Transferase 27 U/L (15-37); BUN Creatinine Ratio 20.2; Bilirubin Direct 0.1 mg/dL (0.0-0.2); Bilirubin Total 0.4 mg/dL (0.2-1.0); Calcium 9.4 mg/dL (8.5-10.1); Carbon Dioxide 28.8 mmol/L (21.0-32.0); Chloride 105 mmol/L (98-107); Chol HDL Ratio 1.9; Cholesterol 165 mg/dL (<=200); Estimated GFR (African America 54 (>=60 mL/min/1.73m^2); Estimated GFR (Non-African Ame 45 (>=60 mL/min/1.73m^2); Globulin 4.1 g/dL; Glucose 95 mg/dL (74-106); HDL Cholesterol 86 mg/dL (40-60); Potassium 4.6 mmol/L (3.5-5.1); Sodium 142 mmol/L (136-145); Thyroid Stimulating Hormone 2.498 uIU/mL (0.358-3.740); Total Protein 7.7 g/dL (6.4-8.2); Triglycerides 36 mg/dL (<=150); VLDL CHOLESTEROL 7.2 mg/dL
[2023-12-11 08:03] LABS: Estimated Average Glucose 105 mg/dL; Glycohemoglobin A1C 5.3 % (4.5-6.2)
== END 2023-12-11 06:49 | disposition home or self-care (01) ==
LOC: LAB 06:50
PROVIDERS: PCP Family Medicine; Visit Provider Family Medicine
DX: E78.5 Hyperlipidemia, unspecified (principal); R73.03 Prediabetes; Z79.899 Other long term (current) drug therapy; E66.811 Obesity, class 1; E66.09 Other obesity due to excess calories; Z68.30 Body mass index [BMI] 30.0-30.9, adult
CPT/HCPCS: 36415; 80048; 80061; 80076; 83036; 84443; 85025

== ENCOUNTER 2024-09-01 08:41 | Outpatient (OUT) | payer MEDICARE, SELFPAY ==
[2024-09-01 08:58] LABS: Hematocrit 34.5 % (36.0-48.0); Hemoglobin 11.2 g/dL (12.0-16.0); Immature Granulocytes Abs Auto 0.00 10^3/uL (0.00-0.03); Immature Granulocytes Pct Auto 0.0 % (0.0-0.5); Lymphocytes Absolute Auto 1.7 10^3/uL (1.2-3.8); Mean Corpuscular HGB Conc 32.5 g/dL (29.9-35.2); Mean Corpuscular Hemoglobin 29.0 pg (26.7-34.0); Mean Corpuscular Volume 89.4 fL (81.0-99.0); Platelet Count 252 10^3/uL (150-450); Red Blood Count 3.86 10^6/uL (4.20-5.40); White Blood Count 4.8 10^3/uL (4.0-11.0)
[2024-09-01 11:24] LABS: Alanine Aminotransferase 33 U/L (14-59); Albumin Globulin Ratio 0.9; Albumin Level 3.5 g/dL (3.4-5.0); Alkaline Phosphatase 68 U/L (46-116); Anion Gap 11.2; Aspartate Amino Transferase 26 U/L (15-37); Blood Urea Nitrogen 26.0 mg/dL (7.0-18.0); Calcium 9.3 mg/dL (8.5-10.1); Carbon Dioxide 30.3 mmol/L (21.0-32.0); Chloride 105 mmol/L (98-107); Cholesterol 202 mg/dL (<=200); Estimated GFR (African America >60 (>=60 mL/min/1.73m^2); Estimated GFR (Non-African Ame 55 (>=60 mL/min/1.73m^2); Globulin 3.7 g/dL; Glucose 110 mg/dL (74-106); HDL Cholesterol 101 mg/dL (40-60); Potassium 4.5 mmol/L (3.5-5.1); Sodium 142 mmol/L (136-145); Thyroid Stimulating Hormone 1.921 uIU/mL (0.358-3.740); Total Protein 7.2 g/dL (6.4-8.2); Triglycerides 46 mg/dL (<=150); VLDL CHOLESTEROL 9.2 mg/dL
== END 2024-09-01 08:42 | disposition home or self-care (01) ==
PROVIDERS: PCP Family Medicine; Visit Provider Family Medicine
DX: E78.5 Hyperlipidemia, unspecified (principal); E66.811 Obesity, class 1; E66.09 Other obesity due to excess calories; Z68.30 Body mass index [BMI] 30.0-30.9, adult; Z79.899 Other long term (current) drug therapy; R73.03 Prediabetes
CPT/HCPCS: 36415; 80048; 80061; 80076; 83036; 84443; 85025

== ENCOUNTER 2024-12-05 10:39 | Outpatient (OUT) | payer MEDICARE, SELFPAY ==
--- OUTSIDE RECORDS SUMMARY | 2024-12-04 06:04 | XMS_ITS | Continuity of Care Document ---
Author Organization [facility] Address [address] [place] [address] Phone Care Team Providers Care Echocardiography Radiology Technologist Name Role Phone NO FAMILY, PHYSICIAN Primary Care Provider Unava Parmjit Isaac MD Attending Provider Care Teams Patient Care Team Team Status: Active Member Role/Relationship Status Dates PHYSICIAN NO FAMILY Primary Care Provider Active Patient Care Team Team Status: Inactive Member Role/Relationship Status Dates PHYSICIAN NO FAMILY Primary Care Provider Active Start: December 04, 2024 End: December 04, 2024[facility] Arik Khanending ProviderActiveStart: December 04, 2024 End: December 04, 2024 Chief Complaint and Reason for Visit Reason for Visit Admit Date Medicare annual wellness visit, [facility] December 04, 2024 9:16am Allergies, Adverse Reactions, Alerts Allergen Type Severity Reaction Last Updated Verified Status No Known Allergies Allergy Unknown December 04, 2024 9:32amYesActive Social History Smoking Status Status Start Date End Date Date of Observa tion Ex-smoker (finding) December 04, 2024 9:33am Observation Status Observation Response Date of Response Legal Sex Female (finding) Sex Assigned At BirthFemaleMay 1955 Family History Relationship Condition Age at Onset Recorded Date/T kathryn father Unknown motherDeceasedUnknown Problems Active Problems Problem Diagnosis/Recorded Date Onset Date Stat us Medicare annual wellness vis it, subsequent December 04, 2024 9:38am Unknown Active Trochanteric bursitis of left hip December 02, 2024 4 :06pm Unknown Active Dyslipidemia December 02, 2024 4:04pm Unknown Ac tive Overweight December 02, 2024 4:05pm Unknown Ac tive Macromastia December 02, 2024 4:04pm Unknown Ac tive Encounter for long-term (cur rent) use of medications December 04, 2024 9:38am Unknown Active DDD (degenerative disc disease), lumbar December 02, 2024 4:04pm Unknown Active Major depressive disorder, r ecurrent episode, mild December 02, 2024 4:05pm Unknown Active Seasonal allergic rhinitis due to pollen December 02, 2024 4:05pm Unknown Active Prediabetes December 02, 2024 4:05pm Unknown Ac tive Bilateral hearing loss December 02, 2024 4:04pm Unkno wn Active Neck pain December 02, 2024 4:05pm Unknown Ac tive Gastroesophageal reflux disease December 02, 2024 4:0 4pm Unknown Active Medications Medication Status Dose Units Route Directions Qty Days Refills S tart Date Stop Date End Date Reason(s) Instructions Adherence Multivitamin (Daily Multi-Vitamin) tablet Active 1 TAB PO Daily December 02, 2024 12:00amComplies with drug therapyAspirin 81 mg tablet,delayed release (DR/EC)Hapoug80HSNMJoqnrPymjzvg 2024 12:00amComplies with drug therapySimvastatin 40 mg hbdslbOzsefk87BTGDObprd at bedtimeM[facility]2024 12:00amComplies with drug therapyLoratadine 10 mg viwgusWavsfz43VIAEAagimWdwnaqu 2024 12:00amComplies with drug therapyEscitalopram Oxalate 20 mg tablet Rwxrgc09LBPGRkqdeBabeigo 2024 12:00amComplies with drug therapyBupropion Hcl 300 mg tablet extended release 24 bfPqupfh460YBESHfafy [facility]2024 12:00amComplies with drug therapyBupropion Hcl 150 mg tablet extended release 24 rnGopjuq700KIOBIdkee [facility] 2024 12:00amComplies with drug therapy Vital Signs Vital Reading Result Reference Range Collection Date/Time Height 66 [in_i] December 04, 2024 9:21ktJvdoka56.65 kgMun[facility] Center2024 9:30amBody Temperature 97.1 [degF]97.6-99.0[facility] 2024 9:30amHeart Rate90 /nlk68-511Lwavxnp 23rd, 2025 9:30amRespiratory rate20 /mmw66-10Uyyevnu 2024 9:30amOxygen saturation by Pulse dtyllihm04 %95-100[facility] 2024 9:30amBP Agokbehw892 mm[Hg]100-140[facility] 2024 9:30amBP Ggavszjyt68 mm[Hg]60-100[facility] 2024 9:30amBMI (Body Mass Index)27.2 kg/q2Vsxmpnl 2024 9:30am Advance Directives Advance Directive Response Recorded Date/ Time Advance Directives No December 14, 2021 8:29am Insurance Providers Guarantor Tanvi Newby Address [address] [place] [id number] Info.Home Phone: Coverage Status Update:2024 Payer Group Member ID Coverage Type Subscriber Relationship to Subscriber Effective Date Expiration Date Ck [facility] Id: [id number] J Salazar Id: [id number] [address] [place] [phone] Home Phone: selfParam[facility] [id number] J Salazar Id: [id number] [address] [place] [phone] Home Phone: self Encounters Encounter Location(s) Arrival/Admit Date Discharge/Departure Date Discharge/Departure Disposition Provider(s) Departed Physician/ Provider Office Visit -[facility] [place] December 04, 2024 9:16am December 04, 2024 10:03am Discharged to home care or self care (routine discharge) Parmjit Khan MD Recent Diagnosis Onset Date Admit Date Medicare annual wellness visit, subsequent Unkno wn December 04, 2024 9:16am Assessments Diagnosis Onset Date Resolution Status Admit Date Medicare annual wellness visit, [facility] 20[facility] 9:16am Plan of Treatment Author Parmjit Khan [facility]ored[facility] 2024 10:00amReviewed labs. Discussed proper diet and regular aerobic exercise.?? Need aerobic exercise 5-6 days a week for 30 minutes at a time.?? Smaller portions and limit total calories.?? Colonoscopy every 10 years.?? Tetanus every 10 years.?? Advised not to smoke.?? Future Tests Future scheduled test information is unavailable Pending Tests Pending diagnostic test information is unavailable Future Visits Future appointment information is unavailable Future Procedures Future procedure information is unavailable Future Medications Future medication information is unavailable Patient Instructions Patient instructions are unavailable
--- OUTSIDE RECORDS SUMMARY | 2024-12-05 10:44 | XMS_ITS | CCD ---
Author Organization [facility] Care Team Providers Care Classroom Coordinator Name Role Phone Jenny Long Unavailable DUKE, DR PARMJIT Wilson Admitting Unavailable NADERER, DR PARMJIT Wilson Attending Unavailable NADERER, DR PARMJIT Wilson Primary Care Unavailable ZIEBER, DR EARNESTINE Saldivar Consulting Unavailable NADERER, DR PARMJIT Wilson Consulting Unavailable NADERER, DR PARMJIT Wilson Admitting Unavailable NADERER, DR PARMJIT Wilson Attending Unavailable NADERER, DR PARMJIT Wilson Primary Care Unavailable NATASHAEBSAVANAH, DR EARNESTINE aSldivar Consulting Unavailable NADERER, DR PARMJIT Wilson Consulting Unavailable NADERER, DR PARMJIT Wilson Admitting Unavailable NADERER, DR PARMJIT Wilson Attending Unavailable NADERER, DR PARMJIT Wilson Primary Care Unavailable NADERER, DR PARMJIT Wilson Consulting Unavailable NADERER, DR PARMJIT Wilson Admitting Unavailable NADERER, DR PARMJIT Wilson Attending Unavailable NADERER, DR PARMJIT Wilson Primary Care Unavailable [place], DR Dey Consulting Unavailable NADERER, DR PARMJIT Wilson Consulting Unavailable ALEJANDRA, DR GALVAN Admitting Unavailable ALEJANDRA, DR GALVAN Attending Unavailable NADEREYariel, DR PARMJIT Wilson Primary Care Unavailable AARON, DR EARNESTINE Saldivar Consulting Unavailable ALEJANDRA, DR GALVAN Consulting Unavailable Mercedes, Jenny Attending Unavailable Jenny Long Admitting Unavailable NO FAMILY, PHYSICIAN Primary Care Unavailable Parmjit Wall MD Primary Care Provider Duke CHAVES, Parmjit Unavailable Parmjit Wall MD Primary Care Provider Parmjit Wall MD Primary Care Provider PARMJIT WALL Attending Unavailable SONJA JESUS Attending Unavailable SONJA JESUS Attending Unavailable NADEREYariel, PARMJIT Attending Unavailable JEANNETTE CAMERON Attending Unavailable NADEREPARMJIT Saldivar Referring Unavailable NADERER, PARMJIT Attending Unavailable NADEREYariel, PARMJIT Attending Unavailable PARMJIT WALL Attending Unavailable PARMJIT WALL Attending Unavailable PARMJIT WALL Attending Unavailable SONJA JESUS Attending Unavailable RORY KILGORE Attending Unavailable NO FAMILY, PHYSICIAN Primary Care Provider Parmjit Wheat MD Attending Provider Medications Current Medications MedicationDrug Class(es)DatesSig (Normalized)Sig (Original)amoxicillin 875 mg / clavulanate 125 mg oral tablet (5 sources)Penicillin-class AntibacterialStart: 11-27-2023 End: 49-74-2633wckx 1 tablet by mouth in the morningamoxicillin-clavulanate (Augmentin) 875-125 MG tablet Indications: Sialadenitis Take 1 tablet (875 mg) by mouth in the morning and 1 tablet (875 mg) before bedtime. Do all this for 10 days. 20 zoubiu9811/27/2023 12/07/2023 Activeascorbic acid 60 mg / beta carotene 5000 unt / copper sulfate 40 mg / dl-alpha tocopheryl acetate 30 unt / sodium selenite 0.04 mg / zinc oxide 40 mg oral tablet (20 sources)Vitamin CMultiple Vitamin (Multivitamin Adult) tablet Orally Active Multiple Vitamin (Multivitamin Adult) tablet Take by mouth daily. Activeaspirin 81 mg delayed release oral tablet (20 sources)Platelet Aggregation Inhibitor, Nonsteroidal Anti-inflammatory Drug Start: 54-81-2644jlbj 1 tablet by mouth once dailyAspirin 81 mg tablet,delayed release (DR/EC) Active 81 MG PO Daily December 02, 2024 12:00am Complies with drug therapyaspirin 81 MG EC tablet 1 (one) time each day at the same time Euaadb59 hr buPROPion hydrochloride 300 mg extended release oral tablet (20 sources)AminoketoneStart: 26-21-0250nobk 1 tablet by mouth once daily in the morningBupropion Hcl 150 mg tablet extended release 24 hr Active 150 MG PO Every morning December 02, 2024 12:00am Complies with drug therapyStart: 12-02-2024 take 1 tablet by mouth once daily in the morningBupropion Hcl 300 mg tablet extended release 24 hr Active 300 MG PO Every morning December 02, 2024 12:00am Complies with drug therapyStart: 82-60-5472jmis 1 tablet by mouth every twenty- four hours in the morningbuPROPion XL (Wellbutrin XL) 150 MG 24 hr tablet Indications: Major depressive disorder, recurrent episode, mild Take 1 tablet (150 mg) by mouth in the morning. Do not crush, chew, or split. 90 tablet 3 07/29/2024 ActiveStart: 05-14-2024 End: 77-65-6612htag 1 tablet by mouth once dailybuPROPion XL (Wellbutrin XL) 300 MG 24 hr tablet Indications: Major depressive disorder, recurrent episode, mild Take 1 tablet (300 mg) by mouth Daily 90 tablet 1 07/14/2024 ActiveStart: 05-14-2024 End: 55-40-2584uklg 1 tablet by mouth every twenty-four hours in the morning buPROPion XL (Wellbutrin XL) 150 MG 24 hr tablet Indications: Major depressive disorder, recurrent episode, mild (HCC) (CMS/HCC) Take 1 tablet (150 mg) by mouth in the morning. Do not crush, chew, orsplit.. 90 tablet 3 05/14/2024 07/14/2024 DiscontinuedStart: 65-57-1504kbBRDZoyv XL (Wellbutrin XL) 300 MG 24 hr tablet Indications: Major depressive disorder, recurrent episode, mild (HCC) (CMS/HCC) TAKE 1 TABLET DAILY 90 tablet 1 12/27/2023 ActiveStart: 28-14-5853txvx 1 tablet by mouth every twenty-four hours in the morningbuPROPion XL (Wellbutrin XL) 150 MG 24 hr tablet Indications: Major depressive disorder, recurrent e pisode, mild (HCC) (CMS/HCC) Take 1 tablet (150 mg) by mouth in the morning. Do not crush, chew, orsplit.. 90 tablet 3 08/01/2023 ActiveStart: 25-63-1143juaz 1 tablet by mouth every twenty-four hours in the morningbuPROPion XL (Wellbutrin XL) 300 MG 24 hr tablet Indications: Major depressive disorder, recurrent e pisode, mild (HCC) (CMS/HCC) Take 1 tablet (300 mg) by mouth in the morning. 90 tablet 3 08/01/2023ctivebuPROPion HCl Activecefdinir 300 mg oral capsule (3 sources)Cephalosporin AntibacterialStart: 03-03-2024 End: 64-60-5339rhiq 1 capsule by mouth in the morningcefdinir (Omnicef) 300 MG capsule Indications: Upper respiratory tract infection, unspecified type Take 1 capsule (300 mg) by mouth in the morning and 1 capsule (300 mg) before bedtime. Do all this for 10 days. 20 capsule 03/03/2024 03/12/2024 DiscontinueddiazePAM 5 mg oral tablet (3 sources)BenzodiazepineStart: 05-22-2024 End: 34-95-4401diczhXME (Valium) 5 MG tablet Indications: Anxiety with flying (CMS/HCC) Take 1-2 tabs 30 minutes prior to flight 4 tablet 05/22/2024 07/14/2024 Discontinuedescitalopram 20 mg oral tablet (20 sources)Serotonin Reuptake InhibitorStart: 68-63-6709kucq 1 tablet by mouth once dailyEscitalopram Oxalate 20 mg tablet Active 20 MG PO Daily December 02, 2024 12:00am Complies with drug therapyStart: 05-19-2024 End: 00-99-5319mcfy 1 tablet by mouth once dailyescitalopram (Lexapro) 20 MG tablet Indications: Major depressive disorder, recurrent episode, mildTake 1 tablet (20 mg) by mouth Daily 90 tablet 3 07/14/2024 ActiveStart: 73-37-8037vazs 1 tablet by mouth once dailyescitalopram (Lexapro) 20 MG tablet Indications: Major depressive disorder, recurrent episode, mild(HCC) (CMS/HCC) Take 1 tablet (20 mg) by mouth Daily 90 tablet 3 05/14/2024 ActiveStart: 53-58-8028xwlz 1 tablet by mouth once dailyescitalopram (Lexapro) 20 MG tablet Indications: Major depressive disorder, recurrent episode, mild(HCC) (CMS/HCC) Take 1 tablet (20 mg) by mouth Daily 90 tablet 3 08/01/2023 ActiveEscitalopram Oxalate 20 MG Oral for 90 Days Activeloratadine 10 mg oral tablet (20 sources)Start: 21-96-6926hbeg 1 tablet by mouth once dailyLoratadine 10 mg tablet Active 10 MG PO Daily December 02, 2024 12:00am Complies with drug therapyloratadine (Claritin) 10 MG tablet 1 (one) time each day at the same time ActiveMultivitamin (Daily Multi-Vitamin) tablet (1 source)Start: 83-46-7487fzez 1 tablet by mouth once dailyMultivitamin (Daily Multi-Vitamin) tablet Active 1 TAB PO Daily December 02, 2024 12:00am Complies with drug therapyphentermine hydrochloride 37.5 mg oral tablet (20 sources)Sympathomimetic Amine AnorecticStart: 12-04-2023 End: 77-84-1257ladc 1 tablet by mouth before mealtimephentermine (Adipex-P) 37.5 MG tablet Indications: Overweight (BMI 25.0-29.9) Take 1 tablet (37.5 mg) by mouth in the morning. Take before meals. 30 tablet 04/29/2024 07/14/2024 Discontinuedpolyethylene glycol 3350 79366 mg powder for oral solution (20 sources)Osmotic Laxative End: 56-40-2502ersa 17 g by mouth in the morningpolyethylene glycol, PEG, 3350 (Miralax) 17 g packet Take 17 g by mouth in the morning. 07/14/2024 Discontinued simvastatin 40 mg oral tablet (20 sources)HMG-CoA Reductase InhibitorStart: 18-40-0428wbyg 1 tablet by mouth once daily at bedtimeSimvastatin 40 mg tablet Active 40 MG PO Daily at bedtime December 02, 2024 12:00am Complies with drug therapyStart: 05-14-2024 End: 04-67-2976ruub 1 tablet by mouth at bedtimesimvastatin (Zocor) 40 MG tablet Indications: Dyslipidemia Take 1 tablet (40 mg) by mouth at bedtime 90 tablet 3 07/14/2024 ActiveStart: 84-57-5754irdlqhkwdmd (Zocor) 40 MG tablet Indications: Dyslipidemia (CMS/HCC) TAKE 1 TABLET AT BEDTIME 90 tablet 3 06/21/2023 Active Simvastatin Activetriamcinolone acetonide 10 mg/ml injectable suspension (4 sources)CorticosteroidStart: 03-13-2024 End: 82-56-8113tsgxhxywiqcbz acetonide (Kenalog) injection 5 mgStart: 03-13-2024 End: mg, Intra-lesional, Once, On [facility] 03/13/24 at 1030, For 1 dose Start: 03-13-2024 End: 57-69-9174okwrrcxfqdmhb acetonide (Kenalog) injection 5 mgStart: 03-13-2024 End: mg, Intra-lesional, Once, On [facility] 03/13/24 at 1030, For 1 dose Problems Active Problems Problem ClassificationProblemDateDocumented DateEpisodic/ChronicAcquired foot deformities (2 sources)Acquired left hallux varus; Translations: [Hallux varus (acquired), left foot]21-10-7267OgwopxzMvpomtyl mellitus without complication (20 sources)Prediabetes; Translations: [Prediabetes]Onset: 96-81-1528Iwseweag Disorders of lipid metabolism (20 sources)Hyperlipidemia, unspecified; Translations: [Dyslipidemia]Onset: 554723-41-0076MoqafocJrnfxdoato disorders (20 sources)Gastroesophageal reflux disease; Translations: [Gastro-esophageal reflux disease without esophagitis]Onset: 496724-25-9777AtjtbukJroh disorders (20 sources)Recurrent major depressive episodes, mild ; Translations: [Major depressive disorder, recurrent, mild]Onset: 320795-69-4689NitskfjDvvbfzhei of unspecified nature or uncertain behavior (2 sources)Neoplastic disease; Translations: [Neoplasm of unspecified behavior of bone, soft tissue, and skin]42-65-9484GccxvcezOxkaqwitytdz breast conditions (11 sources)Large breast; Translations: [Hypertrophy of breast]Onset: 09-05-2024 32-84-1551DmulwqivCcxyx aftercare (1 source)Other mcfp (current) drug therapy; Translations: [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]Onset: 17-29-0189XehsveddAttmb aftercare (20 sources)Long-term current use of drug therapy; Translations: [Other binder coverstitch (current) drug therapy]Onset: 875744-08-2361XjixdhmiVtifh and unspecified benign neoplasm (2 sources)Melanocytic nevus; Translations: [Melanocytic nevi, unspecified] 85-69-8189UiyhplnwCbsgf and unspecified benign neoplasm (2 sources)Melanocytic nevus of trunk; Translations: [Melanocytic nevi of trunk] 25-03-0481TlpcufjnVdtng and unspecified benign neoplasm (2 sources)Senile angioma; Translations: [Hemangioma of skin and subcutaneous tissue]80-62-9232KboytdahAkxvc connective tissue disease (1 source)Pain in right hand; Translations: [Pain in right hand]EpisodicOther connective tissue disease (2 sources)Pain in right hand; Translations: [Pain in right hand]Onset: 80-87-0396EprpbadyGkilz connective tissue disease (20 sources)Trochanteric bursitis of left hip; Translations: [Trochanteric bursitis, left hip]Onset: 684120-65-3960NxerguckSsgin connective tissue disease (2 sources)Capsulitis of metatarsophalangeal joint of left foot; Translations: [Other enthesopathy of left foot and ankle]47-05-3982FtcxrsrdBorsq ear and sense organ disorders (20 sources)Bilateral hearing loss; Translations: [Unspecified hearing loss, bilateral]Onset: 054034-80-7262UucamooIguok non-traumatic joint disorders (4 sources)Other specific joint derangements of right shoulder, not elsewhere classified; Translations: [OTH SPEC JOINT DERANG RT SHLDR NEC]Onset: 12-26-2021 ChronicOther non-traumatic joint disorders (1 source)Pain in right shoulderEpisodicOther nutritional; endocrine; and metabolic disorders (14 sources)Obesity caused by energy imbalance; Translations: [Class 1 obesity due to excess calories without serious comorbidity with body mass index (BMI) of 30.0 to 30.9 in adult]Onset: 941486-02-0406RwupslsOevdw nutritional; endocrine; and metabolic disorders (1 source)Overweight; Translations: [Overweight]59-99-2467WbafmwdeMjtob screening for suspected conditions (not mental disorders or infectious disease) (4 sources)Encounter for screening mammogram for malignant neoplasm of breast; Translations: [ENC SCR MAMMO MALIG NEOPLASM BREAST]Onset: 25-64-9496Chobvbkc Other skin disorders (2 sources)Seborrheic keratosis; Translations: [Other seborrheic keratosis] 42-56-3650LcwegibrSlqvg skin disorders (2 sources)Lentiginosis; Translations: [Other melanin hyperpigmentation] 29-97-3217FybahqnuRljmk skin disorders (4 sources)Actinic keratosis; Translations: [Actinic keratosis]01-28-2024 EpisodicOther skin disorders (4 sources)Keloid scar; Translations: [Hypertrophic scar]67-51-5996EsoqagukXbphb upper respiratory disease (20 sources)Allergic rhinitis due to pollen; Translations: [Allergic rhinitis due to pollen]Onset: 450144-40-2167QjcyqkpLtjsjdey codes; unclassified (1 source)Family history of malignant neoplasm of other organs or systems; Translations: [FAM HX MALIG NEOPLASM OTH ORGN/SYS]Onset: 76-18-4741Ilnqbnzt Spondylosis; intervertebral disc disorders; other back problems (20 sources)Degeneration of lumbar intervertebral disc; Translations: [DDD (degenerative disc disease), lumbar]Onset: hronic Spondylosis; intervertebral disc disorders; other back problems (18 sources)Neck pain; Translations: [Cervicalgia]Onset: EpisodicSuperficial injury; contusion (1 source)Contusion of right hand, initial encounterEpisodicUnclassified (3 sources)LOW BACK PAIN, UNSPECIFIED; Translations: [LOW BACK PAIN, UNSPECIFIED]Onset: 11-10-3434Zqrkchlyydqm (1 source)Pain in right shoulder; Translations: [Pain in right shoulder]Onset: 30-27-9594Xqxiovbyrxdw (16 sources)Patient on antidepressant monitoring planOnset: 370754-02-3539 Unclassified (16 sources)Baseline PHQ-9Onset: 075058-82-5561 Past or Other Problems Problem ClassificationProblemDateDocumented DateEpisodic/ChronicDiseases of mouth; excluding dental (20 sources)Sialoadenitis; Translations: [Sialoadenitis, unspecified]Onset: 11-27-2023 Resolved: 801144-30-4917UribgvgeVsgpc connective tissue disease (20 sources)Plantar fasciitis; Translations: [Plantar fascial fibromatosis] Onset: 01-31-2023 Resolved: 112853-96-4739MsemlmyeTguul lower respiratory disease (4 sources)Pleurodynia; Translations: [PLEURODYNIA]Onset: 84-49-2214Ppyuctnl Other nutritional; endocrine; and metabolic disorders (20 sources)Body mass index 25-29 - overweight; Translations: [Overweight]Onset: 728264-68-3927UoccdchhMyhwypiablqa (1 source)LOW BACK PAIN, UNSPECIFIED; Translations: [LOW BACK PAIN, UNSPECIFIED] Onset: 09-12-2021 Results Test NameValueInterpretationReference RangeFacilityALL CBC WITH AUTO DIFFon [id number] ABSOLUTE AUTO0.1NOMS HealthcareBasophils/100 WBC (Bld)1.2 % 0.2 - 2.0 %NOM HealthcareEosinophils/100 WBC (Bld)4.8 %0.9 - 7.0 %[facility] LouisErythrocyte distribution width (RBC) [Ratio]13.5 %11.0 - 15.0 %[facility] LouisHematocrit (Bld) [Volume fraction]34.5 %Low36.0 - 48.0 %[facility] LouisHemoglobin (Bld) [Mass/Vol]11.2 g/dLLow12.0 - 16.[address] g[address]et [address] Louis IMMATURE GRANULOCYTES ABS SLWN0RARGI-70 Community HospitalImmature granulocytes/100 WBC (Bld)0 %0.0 - 0.5 %[facility] LouisInterpretation and review of laboratory resultsAbnormalNOI-70 Community HospitalLYMPHOCYTES ABSOLUTE AUTO1.7NO[facility] Lymphocytes/100 WBC (Bld)36.1 %20.5 - 60.0 %[facility] HospitalH (RBC) [Entitic mass]29 pg26.7 - 34.0 pgNOCameron Regional Medical CenterHC (RBC) [Mass/Vol]32.5 g/dL29.9 - 35.2 g/dLSullivan County Memorial HospitalV (RBC) [Entitic vol]89.4 fL81.0 - 99.0 fLNOI-70 [facility] MONOCYTES ABSOLUTE AUTO0.5NOI-70 Community HospitalMonocytes/100 WBC (Bld)10.2 %1.7 - 12.0 %NOMS HealthcareNEUTROPHILS ABSOLUTE AUTO2.3NOMS HealthcareNeutrophils/100 WBC (Bld)47.7 %43.0 - 75.0 %NOM HealthcarePlatelet mean volume (Bld) [Entitic vol] 10.1 fL9.5 - 13.[address] LouisTB EO #0.2NOMS [facility] HospitalTBH [id number] [facility] HospitalTB RBC3.86LowNOMS [facility]ville HospitalTB WBC4.8NOMS HealthcareCLINISYNCNMEMORIAL HOSPITAL [facility] HealthcareNo Panel Informationon [id number] HealthcareNo Panel Informationon [id number] HealthcareType of biopsy: tangential Informed consent: discussed and consent obtained Informed consent comment: The risks and benefits of the biopsy were discussed. Risks include but are not limited to bleeding, infection, scarring, pain, and nerve damage. An opportunity to ask questions prior to the procedure was permitted and all questions were answered. Patient was prepped and draped in usual sterile fashion: area cleansed with alcohol. Anesthesia: the lesion was anesthetized in a standard fashion Anesthetic: 1% lidocaine w/ epinephrine 1-100,000 buffered w/ 8.4% NaHCO3 Instrument used: DermaBlade Hemostasis achieved with: electrodesiccation Outcome: patient tolerated procedure well Outcome comment: The specimen was placed in a prelabeled formalin container to be sent for pathology Post-procedure details: sterile dressing applied and wound care instructions given Post-procedure details comment: Emphasized need to contact clinic for any signs of infection, uncontrollable bleeding, or complications. Dressing type: bandage Additional details: Photo taken Amount of lidocaine used: 1.0 ccNOMS [facility] HealthcareALL CBC WITH AUTO DIFFon [id number] ABSOLUTE AUTO0.1NOMS HealthcareBasophils/100 WBC (Bld)1.1 %0.2 - 2.0 %NOMS HealthcareEosinophils/100 WBC (Bld)4.5 %0.9 - 7.0 % [facility] LouisErythrocyte distribution width (RBC) [Ratio]12.3 %11.0 - 15.0 % [facility] LouisHematocrit (Bld) [Volume fraction]39 %36.0 - 48.0 %[facility] LouisHemoglobin (Bld) [Mass/Vol]12.9 g/dL12.0 - 16.[address] Louis IMMATURE GRANULOCYTES ABS QYAF1MJBQI-70 Community HospitalImmature granulocytes/100 WBC (Bld)0 %0.0 - 0.5 %[facility] LouisLYMPHOCYTES ABSOLUTE AUTO1.8[facility] Lymphocytes/100 WBC (Bld)37.8 %20.5 - 60.0 %[facility] HospitalH (RBC) [Entitic mass]30.1 pg26.7 - 34.0 pgSullivan County Memorial HospitalHC (RBC) [Mass/Vol]33.1 g/dL29.9 - 35.2 g/dLSullivan County Memorial HospitalV (RBC) [Entitic vol]91.1 fL81.0 - 99.[address] LouisMONOCYTES ABSOLUTE AUTO0.4NOI-70 Community HospitalMonocytes/100 WBC (Bld)9.3 % 1.7 - 12.0 %[facility] LouisNEUTROPHILS ABSOLUTE AUTO2.2NHedrick Medical Center Neutrophils/100 WBC (Bld)47.3 %43.0 - 75.0 %[facility]. LouisPlatelet mean volume (Bld) [Entitic vol]9.7 fL9.5 - 13.[address] LouisTB EO #0.2N[facility] Healthcare TBH [id number] Rivers Psychiatric Hospital RBC4.28NOTwo Rivers Psychiatric Hospital WBC4.7NO[facility] CLINISYNCNOI-70 Community HospitalMRI SHOULDER RT WO CONon [id number] SHOULDER RT WO CONEXAMINATION: MRI SHOULDER RT WO CON HISTORY: Derangement [...] Electronically authenticated by: EARNESTINE WALKER Date: 2021-12-27 07:[address] [place], [place] [address]XR hand RT min 3V*on 54-23-6682YR hand RT min 3V*[facility] [employer] Other XR hand RT min 3V*[facility] [employer] Other XR hand RT min 3V*[address] [place] [address] [employer] Other XR hand RT min 3V*[place] [address] [place] [address] [employer] Other XR hand RT min 3V*[facility] [employer] Other XR hand RT min 3V*[facility] [employer] Other XR hand RT min 3V*Patient: Dashawn Nelson [id number] [employer] Other XR hand RT min 3V*[address]rups [employer] Other XR hand RT min 3V*: 1955 Acct:[id number] [employer] Other XR hand RT min 3V*Age/Sex: 66 / F ADM Date: 12/11/21 [facility] [employer] Other XR hand RT min 3V*Loc: XDUCLY Room: Type: [facility] [employer] Other XR hand RT min 3V*Attending Dr: Jenny KULKARNI [facility] [employer] Other XR hand RT min 3V*Copies to: SHAD Rivas [facility] [employer] Other XR hand RT min 3V*Ordering Provider: JENNIFER RivasBrookdale [facility] [employer] Other XR hand RT min 3V*Date of Service: 12/11/21[place] [employer] Other XR hand RT min 3V* XR/XR hand RT min 3V*: Acute pain of right shoulder;Right hand painPierce City [employer] Other XR hand RT min 3V*XR hand RT min 3V* 12/11/2021 9:25 [facility] [employer] Other XR hand RT min 3V*SIGNS AND SYMPTOMS: Pain in right hand after fallPier[place] City [employer] Other XR hand RT min 3V*PROTOCOL: Frontal, lateral, and oblique radiographs of the right handPierce City [employer] Other XR hand RT min 3V*COMPARISON: [facility] [employer] Other XR hand RT min 3V*FINDINGS:[employer] Other XR hand RT min 3V*There is mild narrowing of the joint spaces of the thumb. There is no evidence of fracture. [facility] [employer] Other XR hand RT min 3V*dislocation or subluxation. No significant soft tissue swelling.[employer] Other XR hand RT min 3V* XR/XR hand RT min 3V*[place] [employer] Other XR hand RT min 3V*IMPRESSION:[employer] Other XR hand RT min 3V*No acute bony injury.[employer] Other XR hand RT min 3V*Mild degenerative changes are noted in the thumb.[employer] Other XR hand RT min 3V*Impression dictated by: Jose Castro M.D.12/11/2021 10:00 [facility] [employer] Other XR hand RT min 3V*Dictation Location: [id number] [employer] Other XR hand RT min 3V*Transcribed By: [facility] 12/11/[address] [facility] [employer] Other XR hand RT min 3V*Dictated By: Jose Castro II, MD 12/11/[address] [place] [address] [employer] Other XR hand RT min 3V*Signed By:[employer] Other XR hand RT min 3V*12/11/21 [facility] Other XR hand RT min 3V*[facility] Main Ong [address] [place] [address] XRay Report Signed Patient: Dashawn eNlson MR#: [id number] : 1955 Acct:[id number] Age/Sex: 66 / F ADM Date: 12/11/21 Loc: XDUCLY Room: Type: [facility] Attending Dr: Jenny KULKARNI Copies to: [...] Jose Castro M.D.12/11/2021 10:00 AM Dictation Location: [place] [address] Transcribed By: [facility] 12/11/21 1000 Dictated By: Jose Castro II, MD 12/11/21 0958 Signed By: 12/11/21 1000[facility] DaytonXR shoulder RT min 2V*on [id number] shoulder RT min 2V* XR/XR shoulder RT min 2V*: Acute pain of right shoulder;Right hand painStream Media Other XR shoulder RT min 2V*XR shoulder RT min 2V* 12/11/2021 9:25 [facility]Al[facility] Other XR shoulder RT min 2V*SIGNS AND SYMPTOMS: Pain in right shoulder and right hand after fallNoStream Media Other xr shoulder RT min 2V*PROTOCOL: Frontal, Grashey, and scapular Y views of the right shoulderNoStream Media Other XR shoulder RT min 2V*There is mild narrowing of the glenohumeral joint. Mild degenerative changes are noted in [employer] Other XR shoulder RT min 2V*acromioclavicular joint. There is subcortical sclerosis at the greater tuberosity of the humerus.[employer] Other XR shoulder RT min 2V*There is no evidence of fracture or dislocation. The visualized right hemithorax is grossly intact.[employer] Other xr shoulder RT min 2V* XR/XR shoulder RT min 2V*[employer] Other xr shoulder RT min 2V*No fracture or dislocation.[employer] Other XR shoulder RT min 2V*Degenerative changes are noted with findings suspicious for underlying rotator cuff abnormalities.[place] [facility] Other XR shoulder RT min 2V*Impression dictated by: Jose Castro M.D.12/11/2021 10:17 [facility] [employer] Other XR shoulder RT min 2V*Transcribed By: [facility] 12/11/21 [facility] Other XR shoulder RT min 2V*Dictated By: Jose Castro II, MD 12/11/21 [facility] Other [facility] RT min 2V*12/11/21 [facility] Other XR shoulder RT min 2V*[facility] Main Ong [address] [place] [address] XRay Report Signed Patient: Dashawn Nelson MR#: [id number] : 1955 Acct:[id number] Age/Sex: 66 / F ADM Date: 12/11/21 Loc: XDUCLY Room: Type: [facility] Attending Dr: Jenny KULKARNI Copies to: [...] Jose Castro M.D.12/11/2021 10:17 AM Dictation Location: [place] [address] Transcribed By: [facility] 12/11/21 1017 Dictated By: Jose Castro II, MD 12/11/21 1016 Signed By: 12/11/21 1017[facility] SCREEN 3D CELINA CADon 90-22-9210HA MAMM SCREEN 3D CELINA CADPatient: DASHAWN NELSON Exam Date: 11/22/2021 : 1955 Gender:F Ordering : DR PARMJIT WALL . Admission #: [id number] Family : Order #: [id number] CLICK HERE TO VIEW EXAM RADIOLOGY REPORT [...] pancreatic cancer at age 73. LOCATION: [facility] BREAST COMPOSITION: Heterogeneously dense,which may obscure small [...] by: Tiburcio Tejeda MD on 11/22/2021 at 09:58NoUniversity [facility] AUTO DIFFon [id number] #0.0 103/ulNormal0.0-0.1The [facility] HospitalComment on above:Performed By: #### CBC #### [facility] [address] [address] [address] Joao Blacksophils/100 WBC (Bld)0.6 %Normal0.2-2.0The [facility] Comment on above:Performed By: #### CBC #### [facility] [address] [place] [address] Dr. Joao Saba #0.3 103/ulNormal0.0-0.7The [facility] HospitalComment on above: Performed By: #### CBC #### [facility] [address] [place] [address] Dr. Joao Pradoosinophils/100 WBC (Bld)4.3 %Normal0.9-7.0The [facility] Comment on above:Performed By: #### CBC #### [facility] [address] [place] [address] Dr. Joao Pradorythrocyte distribution width (RBC) [Ratio]12.5 %Vqznjb99.0-15.0 [facility] HospitalComment on above:Performed By: #### CBC #### [facility] [address] [place] [address] Dr. Joao HerrmannHematocrit (Bld) [Volume fraction]41.1 %Temwnu58.0-48.0The [facility] HospitalComment on above:Performed By: #### CBC #### [facility] [address] [place] [address] Dr. Joao HerrmannHemoglobin (Bld) [Mass/Vol]13.2 g/jRLsgpes69.0-16.0The [facility] HospitalComment on above:Performed By: #### CBC #### [facility] [address] [place] [address] Dr. Joao Dougherty #0.01 10e3/ulNormal0.00-0.03The [facility] HospitalComment on above:Performed By: #### CBC #### [facility] [address] [place] [address] Dr. Joao Dougherty %0.1 %Normal0.0-0.5The [facility] HospitalComment on above: Performed By: #### CBC #### [facility] [address] [place] [address] Dr. Joao Tse #2.1 103/ulNormal1.2-3.8The [facility] HospitalComment on above:Performed By: #### CBC #### [facility] [address] [place] [address] Dr. Joao Johnsonmphocytes/100 WBC (Bld)31.5 %Ghlsqq33.5-60.0The [facility] HospitalComment on above:Performed By: #### CBC #### [facility] [address] [place] [address] Dr. Joao Vasquez DIFF REQNONormalThe [facility] HospitalComment on above: Performed By: #### CBC #### [facility] [address] [place] [address] Dr. Joao Gaspar (RBC) [Entitic mass]29.1 yoAbdxyn90.7-34.0The [facility] HospitalComment on above:Performed By: #### CBC #### [facility] [address] [place] [address] Dr. Joao Gaspar (RBC) [Mass/Vol]32.1 g/wOGvlibb35.9-35.2The [facility] HospitalComment on above:Performed By: #### CBC #### [facility] [address] [place] [address] Dr. Joao Carpio (RBC) [Entitic vol]90.7 pSHeubkg84.0-99.0The [facility] HospitalComment on above:Performed By: #### CBC #### [facility] [address] [place] [address] Dr. Joao Garcia #0.5 103/ulNormal0.3-0.8The [facility] HospitalComment on above:Performed By: #### CBC #### [facility] [address] [place] [address] Dr. Joao Reganocytes/100 WBC (Bld)7.9 %Normal1.7-12.0The [facility] Comment on above:Performed By: #### CBC #### [facility] [address] [address] [address] Joao AtwoodUT #3.7 103/ulNormal1.4-6.5The [facility] on above:Performed By: #### CBC #### [facility] [address] [place] [address] Dr. Joao Atwoodutrophils/100 WBC (Bld)55.6 %Qxxvuw42.0-75.0The [facility] HospitalCommclaren flint on above:Performed By: #### CBC #### [facility] [address] [place] [address] Dr. Joao HerrmannPlatelet mean volume (Bld) [Entitic vol]10.2 fLNormal9.5-13.5The [facility] HospitalCommclaren flint on above:Performed By: #### CBC #### [facility] [address] [place] [address] Dr. Joao HerrmannPLT245 103/dcXiajqo299-503Rtq [facility] HospitalCommclaren flint on above: Performed By: #### CBC #### [facility] [address] [place] [address] Dr. Joao HerrmannRBC4.53 106/ulNormal4.20-5.40The [facility] HospitalCommclaren flint on above:Performed By: #### CBC #### [facility] [address] [place] [address] Dr. Joao HerrmannWBC6.7 103/ulNormal4.0-11.0The [facility] HospitalCommclaren flint on above: Performed By: #### CBC #### [facility] [address] [place] [address] Dr. Joao HerrmannGLYCOHEMOGLOBIN A1Con [id number] RECOMMENDATIONSEE BELOWNormal [facility] HospitalCommclaren flint on above:Result Comment: ADA RECOMMENDED LIMIT 4.0 - 6.0 ADA THERAPEUTIC TARGET < 7.0 ACTION SUGGESTED > 7.0Performed By: #### A1C #### [facility] [address] [place] [address] Dr. Joao HerrmannGlucose [Mass/Vol]114 mg/dLNormalThBarberton Citizens HospitalComment on above:Performed By: #### A1C #### [facility] [address] [address] [address] Joao HerrmannHbA1c (Bld) [Mass fraction]5.6 %Normal4.5-6.2The [facility] HospitalComment on above:Performed By: #### A1C #### [facility] [address] [address] [address] Joao SchwartzID PROFILEon 95-19-0612AWQS-HDL RATIO NORMSEE BELOWUC Medical CenterComment on above:Result Comment: 3.3 - 4.4 LOW RISK 4.4 - 7.1 AVERAGE RISK 7.1 - 11.0 MODERATE RISK >11.0 HIGH RISKPerformed By: #### LIPID, BMP, LIVER #### [facility] [address] [place] [address] Dr. Joao HerrmannCholesterol [Mass/Vol]186 mg/dLNormal<=200The [facility] Comment on above:Performed By: #### LIPID, BMP, LIVER #### [facility] [address] [place] [address] Dr. Joao Shoemakeresterol in HDL [Mass/Vol]71 mg/dLCritically pssp39-89Uim [facility] HospitalComment on above:Performed By: #### LIPID, BMP, LIVER #### [facility] [address] [address] [address] Joao Shoemakeresterol in LDL [Mass/Vol]97.4 mg/dLUC Medical CenterComment on above:Performed By: #### LIPID, BMP, LIVER #### [facility] [address] [place] [address] Dr. Joao Shoemakeresterque.total/Cholesterol in HDL [Mass ratio]2.6 {ratio} NormalThe [facility] HospitalComment on above:Performed By: #### LIPID, BMP, LIVER #### [facility] [address] [place] [address] Dr. Joao HerrmannHDL NORMAL> or = 60 mg/dl - LOW CARDIOVASCULAR RISK <40 mg/dl - HIGH CARDIOVASCULAR RISKUC Medical CenterComment on above:Performed By: #### LIPID, BMP, LIVER #### [facility] [address] [address] [address] Jooa Winter CALC NORMALSEE BELOWUC Medical CenterComment on above:Result Comment: <100 mg/dl OPTIMAL 100 - 129 mg/dl NEAR OR ABOVE OPTIMAL 130 - 159 mg/dl BORDERLINE HIGH 160 - 189 mg/dl HIGH >190 mg/dl VERY HIGH Performed By: #### LIPID, BMP, LIVER #### [facility] [address] [address] [address] Joao HerrmannTriglyceride [Mass/Vol]88 mg/dLNormal<=150The [facility] Comment on above:Performed By: #### LIPID, BMP, LIVER #### [facility] [address] [place] [address] Dr. Joao HerrmannVLDL CALC17.6 mg/dLUC Medical CenterComment on above: Performed By: #### LIPID, BMP, LIVER #### [facility] [address] [place] [address] Dr. Joao Byrd PROFILEon 53-83-1922Lraamkb [Mass/Vol]4.3 g/dLNormal3.4-5.0 The [facility] on above:Performed By: #### LIPID, BMP, LIVER #### [facility] [address] [place] [address] Dr. Joao HerrmannAlbumin/Globulin [Mass ratio]1.2 {ratio}NormalThe [facility] HospitalCommclaren flint on above:Performed By: #### LIPID, BMP, LIVER #### [facility] [address] [place] [address] Dr. Joao Bhardwaj [Catalytic activity/Vol]79 U/FNfsxli11-419Ksi [facility] on above:Performed By: #### LIPID, BMP, LIVER #### [facility] [address] [place] [address] Dr. Joao Tariq [Catalytic activity/Vol]32 U/SFlohwd46-78Qvp [facility] on above:Performed By: #### LIPID, BMP, LIVER #### [facility] [address] [address] [address] Joao HerrmannAST [Catalytic activity/Vol]26 U/XOdxsny88-94Fxw [facility] HospitalComment on above:Performed By: #### LIPID, BMP, LIVER #### [facility] [address] [address] [address] Joao ClancyI, CONJUGATED0.1 mg/dLNormal0.0-0.2The [facility] Comment on above:Performed By: #### LIPID, BMP, LIVER #### [facility] [address] [place] [address] Dr. Joao Clancyirubin [Mass/Vol]0.3 mg/dLNormal0.2-1.0The [facility] Comment on above:Performed By: #### LIPID, BMP, LIVER #### [facility] [address] [place] [address] Dr. Joao HerrmannGlobulin (S) [Mass/Vol]3.7 g/dLNormalThe [facility] HospitalComment on above:Performed By: #### LIPID, BMP, LIVER #### [facility] [address] [place] [address] Dr. Joao HerrmannProtein [Mass/Vol]8.0 g/dLNormal6.4-8.2The [facility] Comment on above:Performed By: #### LIPID, BMP, LIVER #### [facility] [address] [place] [address] Dr. Joao HerrmannPROF CHEM 8 (BAS METB)on 74-08-0285Iikhh gap [Moles/Vol]12.7 mmol/LNormalMercy Health Clermont HospitalComment on above:Performed By: #### LIPID, BMP, LIVER #### [facility] [address] [place] [address] Dr. Joao HerrmannCalcium [Mass/Vol]9.5 mg/dLNormal8.5-10.1[facility] Comment on above:Performed By: #### LIPID, BMP, LIVER #### [facility] [address] [place] [address] Dr. Joao HerrmannChloride [Moles/Vol]101 mmol/EHbkujy92-413LnsMercy Health Clermont Hospital Comment on above:Performed By: #### LIPID, BMP, LIVER #### [facility] [address] [address] [address] Joao HerrmannCO2 [Moles/Vol]27.9 mmol/JCnlfzi73.0-32.0The [facility] Comment on above:Performed By: #### LIPID, BMP, LIVER #### [facility] [address] [address] [address] Joao HerrmannCreatinine [Mass/Vol]0.97 mg/dLNormal0.55-1.02[facility]erm[facility] HospitalComment on above:Performed By: #### LIPID, BMP, LIVER #### [facility] [address] [place] [address] Dr. Joao PradoGFR-AF COLOMBIAN>60Normal>=60The [facility] HospitalComment on above:Performed By: #### LIPID, BMP, LIVER #### [facility] [address] [place] [address] Dr. Joao PradoGFR-NON AF VCHFRYBI81 mL/min/1.82k1Glttiyjqof low>=60The [facility] HospitalComment on above:Performed By: #### LIPID, BMP, LIVER #### [facility] [address] [place] [address] Dr. Joao HerrmannGlucose [Mass/Vol]95 mg/lKNocuxg97-657TcvMercy Health Clermont Hospital Comment on above:Performed By: #### LIPID, BMP, LIVER #### [facility] [address] [place] [address] Dr. Joao HerrmannPotassium [Moles/Vol]4.6 mmol/LNormal3.5-5.1The [facility] Comment on above:Performed By: #### LIPID, BMP, LIVER #### [facility] [address] [place] [address] Dr. Joao HerrmannSodium [Moles/Vol]137 mmol/ZRhysvd440-576Crz [facility] Comment on above:Performed By: #### LIPID, BMP, LIVER #### [facility] [address] [place], [place] [address] Dr. Joao HerrmannUrea nitrogen [Mass/Vol]13.0 mg/dLNormal7.0-18.0The [facility] HospitalCommclaren flint on above:Performed By: #### LIPID, BMP, LIVER #### [facility] [address] [place], [place] [address] Dr. Joao HerrmannUrea nitrogen/Creatinine [Mass ratio]13.4 mg/mgNoKnox Community HospitalComment on above:Performed By: #### LIPID, BMP, LIVER #### [facility] [address] [place], [place] [address] Dr. Joao HerrmannXR LSPINE MIN 4 VIEWSon 05-16-9237PG LSPINE MIN 4 VIEWS EXAMINATION: XR LSPINE [...] Electronically authenticated by: EARNESTINE WALKER Date: 2021-09-13 08:48UC Medical CenterXR RIBS LT PA Antonette [id number] RIBS LT PA CHEXAMINATION: XR RIBS LT PA CH HISTORY: Rib [...] Electronically authenticated by: EARNESTINE WALKER Date: 2021-03-14 10:16[facility] Vital Signs Date TimeVital SignValuePerforming CwpblaptwIpketdqw51-94-0846 09:30-0400Body spypgg214.64 cmPHYSICIAN [facility]10-23-2025 09:30-0400Body mass index (BMI) [Ratio]27.2 kg/g5RWJCNWVXH [facility]10-23-2025 09:30-0400Body imxnjinaopr42.1 [degF]PHYSICIAN [facility]10-23-2025 09:30-0400Body dcemeh26.65 kgPHYSICIAN [facility]10-23-2025 09:30-0400 Diastolic blood mm[Hg]PHYSICIAN [facility]10-23-2025 09:30-0400Heart rate90 /minPHYSICIAN [facility]10-23-2025 09:30-0400Respiratory rate20 /minPHYSICIAN [facility]10-23-2025 09:30-5444HlX5% (BldA) [Mass fraction]98 %PHYSICIAN [facility]10-23-2025 09:30-0400Systolic blood hboxdlfi700 mm[Hg]PHYSICIAN [facility]09-11-2025 13:23-0400Body .6 cmRory Brown DPM Work Phone: [facility]Mkvoylihtb88-62-0602 13:23-0400Body mass index (BMI) [Ratio]26.63 kg/h6Dlaispxp Brown DPM Work Phone: [facility] LouisEeckvpnqwo57-06-8049 13:23-0400Body sefota87.84 kgRory Brown DPM Work Phone: [facility] LouisLxtkeorszc61-24-5483 13:23-0400Respiratory rate16 /minRory Brown DPM Work Phone: [facility] LouisEsqivqlfdy11-60-9246 10:51-0400Body qzifll945.6 cmJoaquin Rosales MD Work Phone: [facility]08-19-2025 10:51-0400Body mass index (BMI) [Ratio]27.41 kg/p6ZhdjgnrJoaquin Rosales MD Work Phone: [facility]08-19-2025 10:51-0400Body weight 77.02 kgJoaquin Rosales MD Work Phone: [facility]07-25-2025 11:14-0400Body height 167.6 cmParmjit Wall MD Work Phone: [facility] LouisFkwjtgvhdw23-46-9212 11:14-0400Body mass index (BMI) [Ratio]27.28 kg/m2Parmjit Wall MD Work Phone: [phone] [place], [place] [address]Nnqxiuaedh78-40-6736 11:14-0400Body temperature 95.5 [degF]Parmjit Wall MD Work Phone: [facility] LouisBlevuxqxqe84-21-4125 11:14-0400Body yhibfc44.66 kgParmjit Wall MD Work Phone: [facility] LouisTffubzlexo92-21-3135 11:14-0400Diastolic blood ydkdcrzw00 mm[Hg]Parmjit Wall MD Work Phone: [facility] LouisCkktarduat11-26-5367 11:14-0400Heart rate91 /min Parmjit Wall MD Work Phone: [facility] LouisMlcskxpfpc22-39-5017 11:14-0400Respiratory rate18 /minParmjit Wall MD Work Phone: [facility] LouisJirtvftwwy32-47-2313 11:14-3567VhV7% (BldA) [Mass fraction]97 %Parmjit Wall MD Work Phone: [facility] LouisZsohibhwoy65-21-5003 11:14-0400Systolic blood uttlolyk010 mm[Hg]Parmjit Wall MD Work Phone: [facility] LouisQseodvbxed46-73-8779 09:32-0400Body jpomqt441.6 cmParmjit Wall MD Work Phone: [phone] [place], [place] [address]Ahnvbfstzj87-59-9294 09:32-0400Body mass index (BMI) [Ratio]27.12 kg/m2Parmjit Wall MD Work Phone: [facility] LouisNpgjdhyxzj56-06-5195 09:32-0400Body temperature 97.81 [degF]Parmjit Wall MD Work Phone: [facility] LouisLuliqpenoo41-55-9996 09:32-0400Body qejaiy77.2 kg Parmjit Wall MD Work Phone: [facility] LouisSpittgoqga38-43-9111 09:32-0400Diastolic blood mm[Hg]Parmjit Wall MD Work Phone: [facility] LouisLjmozcuvrq24-42-5694 09:32-0400Heart rate84 /min Parmjit Wall MD Work Phone: [facility] LouisAikxmhygdk94-69-2851 09:32-0400Respiratory rate22 /minParmjit Wall MD Work Phone: [facility] LouisWpclpzcqbb32-27-1773 09:32-7629AcO5% (BldA) [Mass fraction]97 %Parmjit Wall MD Work Phone: [facility] LouisBxiljburcv74-65-4972 09:32-0400Systolic blood bsudclov445 mm[Hg]Parmjit Wall MD Work Phone: [facility] LouisYbolkpfmig64-42-7014 09:35-0500Body lubonz412.6 cmParmjit Wall MD Work Phone: [facility] LouisJxzfbvzusb55-69-7531 09:35-0500Body mass index (BMI) [Ratio]28.41 kg/m2Parmjit Wall MD Work Phone: [facility] LouisXnrrncckpq53-48-1213 09:35-0500Body temperature 95.11 [degF]Parmjit Wall MD Work Phone: [facility] LouisVzarlpqyva64-48-4180 09:35-0500Body yduqln71.83 kgParmjit Wall MD Work Phone: [facility] LouisGqdpquksff78-25-7845 09:35-0500Diastolic blood ifdxmmwn96 mm[Hg]Parmjit Wall MD Work Phone: [facility] LouisNevwiovjma79-85-4838 09:35-0500Heart rate94 /min Parmjit Wall MD Work Phone: [facility] LouisQlpqgfehej27-72-3762 09:35-0500Respiratory rate20 /minParmjit Wall MD Work Phone: [facility] LouisJtnitlxoqp58-58-9123 09:35-2386XzD7% (BldA) [Mass fraction]97 %Parmjit Wall MD Work Phone: [facility] LouisXrznijncwt10-68-9546 09:35-0500Systolic blood bdkgcopg873 mm[Hg]Parmjit Wall MD Work Phone: [facility] LouisDabrjvtzbf79-63-1761 09:05-0500Body .6 cmParmjit Wall MD Work Phone: [phone] [place], [place] [address]Svczfkwhnq02-69-8717 09:05-0500Body mass index (BMI) [Ratio]28.57 kg/m2Parmjit Wall MD Work Phone: [facility] LouisQmoinkltva02-60-8069 09:05-0500Body temperature 95.5 [degF]Parmjit Wall MD Work Phone: [facility] LouisZfdoopbfmc39-78-4059 09:05-0500Body xhmlec48.29 kgParmjit Wall MD Work Phone: [facility] LouisXmvjwtnarp52-86-5422 09:05-0500Diastolic blood jpodqzar85 mm[Hg]Parmjit Wall MD Work Phone: [facility] LouisCcocpapmsx50-55-1101 09:05-0500Heart rate87 /min Parmjit Wall MD Work Phone: [facility] LouisHlqmboxrtd15-17-5269 09:05-0500Respiratory rate22 /minParmjit Wall MD Work Phone: [place] [address]Qrupokqiio32-17-8951 09:05-2325GeJ6% (BldA) [Mass fraction]97 %Parmjit Wall MD Work Phone: [facility] LouisMpgttefbmo66-18-5461 09:05-0500Systolic blood jpqguxol123 mm[Hg]Parmjit Wall MD Work Phone: [facility] LouisXyzewfbemc42-87-7094 09:36-0400Body mass index (BMI) [Ratio]29.76 kg/m2Parmjit Wall MD Work Phone: [facility] LouisWkgxspiptt26-15-8249 09:36-0400Body temperature 97.3 [degF]Parmjit Wall MD Work Phone: [facility] LouisAjswnolcis55-64-3865 09:36-0400Body wavhqb10.64 kgParmjit Wall MD Work Phone: [facility] LouisXvgtdgmcgc21-99-9310 09:36-0400Diastolic blood ayhtatqr33 mm[Hg]Parmjit Wall MD Work Phone: [phone] [place], [place] [address]Dfxgahmmly81-17-8690 09:36-0400Heart rate73 /min Parmjit Wall MD Work Phone: [facility] LouisUblbczdoke96-89-4707 09:36-3592SfU3% (BldA) [Mass fraction]98 %Parmjit Wall MD Work Phone: [facility] LouisHqpdjirbbc67-86-6307 09:36-0400Systolic blood nuweancc363 mm[Hg]Parmjit Wall MD Work Phone: [facility] LouisKzlltvidaf82-59-9822 11:44-0400Body yboouc277.6 cmParmjit Wall MD Work Phone: [facility] LouisYbfrvicuqe89-72-2602 11:44-0400Body mass index (BMI) [Ratio]29.54 kg/m2Parmjit Wall MD Work Phone: [facility] LouisSyyigxpfyk74-03-1676 11:44-0400Body temperature 96.21 [degF]Parmjit Wall MD Work Phone: [facility] LouisMzeujbhwdy27-05-2221 11:44-0400Body .01 kgParmjit Wall MD Work Phone: [facility] LouisSvpjsjudzf34-22-3901 11:44-0400Diastolic blood mm[Hg]Parmjit Wall MD Work Phone: [facility] LouisEkxhyplgec00-93-2142 11:44-0400Heart rate91 /min Parmjit Wall MD Work Phone: [place] [address]Rjbbriujdz92-06-0032 11:44-0400Respiratory rate20 /minParmjit Wall MD Work Phone: [phone] [address]Ybikcnwdcg97-21-5029 11:44-9381JdW8% (BldA) [Mass fraction]97 %Parmjit Wall MD Work Phone: [facility] LouisZyizpaxtfw71-26-6990 11:44-0400Systolic blood mm[Hg]Parmjit Wall MD Work Phone: [phone] [place], [place] [address]Xwnginxqkj01-75-6878 09:17-0400Body mass index (BMI) [Ratio]29.36 kg/m2Parmjit Wall MD Work Phone: [facility] LouisNcvxjdabnt30-19-8959 09:17-0400Body temperature 97.11 [degF]Parmjit Wall MD Work Phone: [facility] LouisKioeppsawa62-91-1951 09:17-0400Body vrzanx27.51 kgParmjit Wall MD Work Phone: [place] [address]Vlspvnuyki76-39-7225 09:17-0400Diastolic blood axbsvxdb55 mm[Hg]Parmjit Wall MD Work Phone: [place] [address]Qjccvkhhbq54-85-9305 09:17-0400Heart rate78 /min Parmjit Wall MD Work Phone: [place] [address]Smfqjvfvgy00-69-4219 09:17-7381DaF5% (BldA) [Mass fraction]98 %Parmjit Wall MD Work Phone: [place] [address]Gdzrfqdxod28-19-3414 09:17-0400Systolic blood mm[Hg]Parmjit Wall MD Work Phone: [facility] Kqwfjemetv55-43-5112 10:00-0400Body cefkjz591.18 cmPpancho Long Other [employer] Other 10-30-2022 10:00-0400Body mass index (BMI) [Ratio] 28.97 kg/k1Tphkaa Mercedes Other [employer] Other 10-30-2022 10:00-0400Body uafjiltniok85.7 [degF]Jenny Mercedes Other [employer] Other 10-30-2022 10:00-0400Body .92 kgDeontemartin Mercedes Other [employer] Other 10-30-2022 10:00-0400Diastolic blood slotehif81 mm[Hg] Jenny Mercedes Other [employer] Other 10-30-2022 10:00-0400Respiratory rate16 /minJenny Long Other [employer] Other 10-30-2022 10:00-2678WxQ6% (BldA) [Mass fraction]99 % Jenny Long Other [employer] Other 10-30-2022 10:00-0400Systolic blood wvgabbxa657 mm[Hg] Jenny Long Other [employer] Other Encounters Encounter DateEncounter [facility] ProviderFacilityStart: 12-04-2024 End: 43-29-5587ysvoaguwsaPAXGWYLIS NO [facility] Family Medicine ClydeStart: 12-04-2024 End: 20-00-3681Iecoytz encounter procedureParmjit Wall MD-[facility] [place] Work Phone: Start: 10-23-2024 End: 51-84-1612Mqzvru outpatient new 30 minutesRory Kilgore DPM Work Phone: [facility] PODIATRYComment on above:Capsulitis of metatarsophalangeal (MTP) joint of left foot (Primary Dx); Hallux varus (acquired), left footStart: 10-23-2024 End: 78-19-9647jszkchfighPCRSSWSP A BROWNNot AvailableStart: 09-30-2024 End: 37-21-2568Cktise outpatient new 45 minutesJoaquin Rosales MD Work Phone: [facility] Donalsonville HospitalComment on above: Macromastia (Primary Dx); Thoracic spine painStart: 09-05-2024 End: 08-05-6876Gimuuh flowsVeronica Wall MD Work Phone: noMS CWM FMStart: 09-05-2024 End: 39-94-5635Onkvzh Saw Wall MD Work Phone: noms CWM FMStart: 09-05-2024 End: 66-41-4270bttnzzjczeQKUU NADERERNot AvailableStart: 09-05-2024 End: 77-19-3291Enrgnp outpatient visit 15 minutesParmjit Wall MD Work Phone: noms CWM FMComment on above:Neck pain (Primary Dx); MacromastiaStart: 09-01-2024 End: 19-89-5653Pfhgagvag Result EncounterParmjit Wall MD Work Phone: noms External Department UnsolicitedStart: 09-01-2024 End: 86-39-1456Ncqxpqdac Result EncounterParmjit Wall MD Work Phone: noms External Department UnsolicitedStart: 08-11-2024 End: 92-06-9534Vqdhpa flowsKrupa Cameron PT Work Phone: noMS CI PTStart: 08-11-2024 End: 28-05-1598Bezaag flowsKrupa Cameron PT Work Phone: noMS CI PTStart: 08-11-2024 End: 85-06-4664lpauaddpurYhxwmv T Blackston PT Work Phone: noMS CI PTComment on above:Neck pain (Primary Dx) Start: 08-01-2024 End: 08-29-8395Fjpgnxfel encounterJeminnie Cameron PT Work Phone: noMS CI PTComment on above:CorrectionStart: 07-31-2024 End: 59-51-1307Hhzacpwtm encounterJeannette Cameron PT Work Phone: noms CI PTComment on above:PT Initial Eval (Referral needs to be sent back for auth once scheduled.)Start: 07-14-2024 End: 67-48-1052Rumvwwmary Wall MD Work Phone: noMS CWM FMStart: 07-14-2024 End: 76-36-9015Rkzhbqmary Wall MD Work Phone: noms CWM FMStart: 07-14-2024 End: 74-14-3743Xgbmdr outpatient visit 15 minutesMarjulia Wall MD Work Phone: NOMS CWM FMComment on above:Major depressive disorder, recurrent episode, mild (HCC) (CMS/HCC) (Primary Dx); Prediabetes; Overweight (BMI 25.0-29.9); Dyslipidemia (CMS/HCC)Start: 07-14-2024 End: 75-45-6279ixqoradjyzQEMK NADERERNot AvailableStart: 05-15-2024 End: 42-73-6619Yxgjhp flowsAyan Jesus LIFE SKILLS TRAINER-TESTER OPERATOR Work Phone: noms SWS DERMStart: 05-15-2024 End: 97-62-2194Nzroxt flowsheetNatalie A Felter LIFE SKILLS TRAINER-TESTER OPERATOR Work Phone: noms SWS DERMStart: 05-15-2024 End: 70-52-2686Qrvthmf encounter procedureNatalie A Felter LIFE SKILLS TRAINER-TESTER OPERATOR Work Phone: noms SWS DERMComment on above:Actinic keratosis; KeloidStart: 05-15-2024 End: 84-65-2742wwzxhfsxzbMPJWSEU A FELTERNot AvailableStart: 04-22-2024 End: 60-61-2175YozwtzTike Naderer MD Work Phone: NOWK CWM FMComment on above:Overweight (BMI 25.0-29.9) Start: 04-08-2024 End: 25-46-8483KidbwmJono Naderer MD Work Phone: NOHO CWM FMComment on above:Overweight (BMI 25.0-29.9) Start: 03-13-2024 End: 42-52-5477Glvjdlo encounter procedureNatalie A Felter LIFE SKILLS TRAINER-TESTER OPERATOR Work Phone: noms SWS DERMComment on above:Keloid scarStart: 03-13-2024 End: 61-24-3506pqmbwcdiksTVRHOQF A FELTERNot AvailableStart: 03-12-2024 End: 36-41-5092Ufzaclmary Wall MD Work Phone: NOIK CWM FMStart: 03-12-2024 End: 26-38-3059Xujjys Saw Wall MD Work Phone: NOFX CWM FMStart: 03-12-2024 End: 59-08-4102inpyuyyxyoXGUH NADERERNot AvailableStart: 03-12-2024 End: 10-30-5768Navhwc outpatient visit 15 minutesParmjit Wall MD Work Phone: NOSQ CWM FMComment on above:Major depressive disorder, recurrent episode, mild (HCC) (CMS/HCC) (Primary Dx); Overweight (BMI 25.0-29.9)Start: 01-28-2024 End: 31-94-4946Vvxxha flowsheetNatalie A Felter LIFE SKILLS TRAINER-TESTER OPERATOR Work Phone: noms SWS DERMStart: 01-28-2024 End: 13-95-3634Wkkdja flowsheetNatalie A Felter LIFE SKILLS TRAINER-TESTER OPERATOR Work Phone: noms SWS DERMStart: 01-28-2024 End: 27-36-6015Nwyenf outpatient visit 15 minutesNatalie A Felter LIFE SKILLS TRAINER-TESTER OPERATOR Work Phone: noms [facility] DERMComment on above:Melanocytic nevus, unspecified location (Primary Dx); Melanocytic nevus of trunk; Seborrheic keratosis; Lentigines; Maldonado angioma; Actinic keratosis; Neoplasm of unspecified behavior of bone, soft tissue, and skinStart: 01-28-2024 End: 32-39-5230vtrtygiifiRHQUHYY A FELTERNot AvailableStart: 01-09-2024 End: 12-81-6710Osejue Saw Wall MD Work Phone: noms CW FMStart: 01-09-2024 End: 23-71-0656Bmbgdd Saw Wall MD Work Phone: noms CW FMStart: 01-09-2024 End: 62-48-8985Khayig outpatient visit 15 minutesParmjit Wall MD Work Phone: noms [facility] FMComment on above:Major depressive disorder, recurrent episode, mild (HCC) (CMS/HCC) (Primary Dx); Class 1 obesity due to excess calories without serious comorbidity with body mass index (BMI) of 30.0 to 30.9 in adultStart: 01-09-2024 End: 43-37-7969mlygvcphbuUPUS NADERERNot AvailableStart: 12-11-2023 End: 82-83-7984Wqgeunvop Result Rupa Wall MD Work Phone: noms External Department UnsolicitedStart: 12-11-2023 End: 87-80-7793Zodykivvg Result EncounterParmjit Wall MD Work Phone: noms External Department UnsolicitedStart: 12-04-2023 End: 27-39-3546Narpye Saw Wall MD Work Phone: noms CWM FMStart: 12-04-2023 End: 44-66-5753Vppgbs Saw Wall MD Work Phone: noms CWM FMStart: 12-04-2023 End: 74-42-5669Xwilaku encounter procedureParmjit Wall MD Work Phone: noms [facility] Work Phone: Start: 12-04-2023 End: 44-78-9377Obulua follow up visit related to original Pedro Wall MD Work Phone: noms CWM FMComment on above:Medicare annual wellness visit, subsequent (Primary Dx); Dyslipidemia (CMS/HCC); Prediabetes; Class 1 obesity due to excess calories without serious comorbidity with body mass index (BMI) of 30.0 to 30.9 in adult; Encounter for long-term (current) use of medicationsStart: 12-04-2023 End: 94-77-8027yxetgkoeyuQLPJ NADERERNot AvailableStart: 11-27-2023 End: 23-70-2472Ujyygz Saw Wall MD Work Phone: noms CWM FMStart: 11-27-2023 End: 68-34-0122Uqrspn Saw Wall MD Work Phone: noms CWM FMStart: 11-27-2023 End: 80-64-0206Tmuiga outpatient visit 15 minutesParmjit Wall MD Work Phone: noms CWM FMComment on above:Sialadenitis (Primary Dx) Start: 11-27-2023 End: 02-99-8670kgmkdytwnvBELC NADERERNot AvailableStart: 10-29-2023 End: 59-38-0598Rsbqvc Saw Wall MD Work Phone: noms CWM FMStart: 10-29-2023 End: 99-75-6085Heehzh Saw Wall MD Work Phone: noms CWM FMStart: 10-29-2023 End: 69-57-0064Jwaoee outpatient visit 15 minutesParmjit Wall MD Work Phone: noms CWM FMComment on above:Major depressive disorder, recurrent episode, mild (HCC) (CMS/HCC) (Primary Dx); DDD (degenerative disc disease), lumbar; Seasonal allergic rhinitis due to pollenStart: 10-29-2023 End: 74-81-3376cywxokjavbILMQ NADERERNot AvailableStart: 12-26-2021 End: 48-89-0659ngwncvnegpEE COLE ALEJANDRAFacility:F3Mmpsv: 06-27-6786Zagllk outpatient new 20 minutesPamela MercedesVALLEYWISE HEALTH [facility] ClydeStart: 12-11-2021 End: 58-36-3027bsakwpnfrsYnuufj DymondNorth [facility] Other Start: 12-11-2021 End: 24-50-3080Vvonydv encounter procedureSHAD Long Work Phone: [facility] [place] Start: 11-22-2021 End: 79-40-8345lssdenuvdsPR PARMJIT A NADERERFacility:M7Oxyrq: 11-08-2021 End: 10-90-1412nldguzfagiEK PARMJIT A NADERERFacility:O6Jrlin: 09-12-2021 End: 83-02-1453xwbgswzlwhPK PARMJIT A NADERERFacility:S5Uecmv: 03-14-2021 End: 06-97-2961nrlwajvsitEF PARMJIT A NADERERFacility:H1 Procedures DateProcedureProcedure DetailPerforming ClinicianStart: 23-66-5887MOG CBC WITH AUTO Marcial Wall MD Work Phone: Start: 03-90-6221ZAWLEAQMBPN SKIN LESIONNatalie A Felter LIFE SKILLS TRAINER-TESTER OPERATOR Work Phone: Start: 62-86-4746EDBSKTDEPJF SKIN LESIONNatalie A Felter LIFE SKILLS TRAINER-TESTER OPERATOR Work Phone: Start: 25-38-2503ZWIY / NAIL BIOPSYNatalie A Felter LIFE SKILLS TRAINER-TESTER OPERATOR Work Phone: Start: 81-73-4567JPL CBC WITH AUTO Marcial Wall MD Work Phone: Start: 52-11-9748ZhngqqdkngqRxkx Naderer MD Work Phone: Start: 88-91-2413NlfapmgeggnVrns Naderer MD Work Phone: Start: 47-56-9025Mrfis X-ray of right handNP-C Jenny Long Work Phone: Start: 73-39-2367Sroqo X-ray of right shoulderNP-C Jenny Long Work Phone: Start: 41-76-6967ZurfsnotnksHukz Naderer MD Work Phone: Plan of Treatment DateCare ActivityDetailAuthorStart: 19-61-8212Afsdhkk vaccinationTETANCritical access hospital SystemStart: 64-64-1129Fwijdmtao for malignant neoplasm of colonNOMS HealthcareStart: 32-93-7179MRB VACCINE (1 - 1-dose 75+ series)RSV VACCINE (1 - 1-dose 75+ series)[facility] SystemStart: 01-27-2025 End: 22-85-5206Chvqmbz encounter procedureNOMS SWS DERMStart: 12-04-2024 End: 85-48-5823Vzmyjwd encounter dafzulztu45/23/2025 9:15 AM EDT Office Visit [facility] [address] [place] [address] Parmjit Wall MD [address] [place] [address] NOMS CWM FMStart: 10-22-2025Medicare Annual Wellness (AWV)Medicare Annual Wellness (AWV)[facility] HealthcareStart: 90-86-0562Cvqwxngbo for malignant neoplasm of breastMammogramNOMS HealthcareStart: 30-14-3996Mawemrdka vaccinationInfluenza Vaccine (#1)[facility] HealthcareStart: 09-05-2024 End: 51-34-2305Gwhywox encounter lbziwiwsv51/25/2025 11:00 AM EDT Office Visit [facility] FM [address] [place] [address] Parmjit Wall MD [address] [place] [address] NOMS CWM FMStart: 08-11-2024 End: 47-75-9388kbimzwujztJEEO CI PTComment on above:Neck painStart: 07-14-2024 End: 09-10-6884Bkydwut encounter bnltsipgf55/02/2025 9:15 AM EDT Office Visit [facility] [address] [place] [address] Parmjit Wall MD [address] [place] [address] ArrivedNOMS CWM FMComment on above:ArrivedStart: 06-12-2024 End: 48-10-0478Atzstdg encounter lsdmqyvnw13/01/2025 11:15 AM EDT Office Visit [facility] [address] [place] [address] Parmjit Wall MD [address] [place] [address] NOMS CWM FMStart: 06-11-2024 End: 99-12-0808Nhmcitl encounter aljwueogb27/30/2025 8:45 AM EDT Office Visit [facility] [address] [place] [address] Parmjit Wall MD [address] [place] [address] NOMS ZAHIDA FMStart: 05-15-2024 End: 70-82-3108Ovrwvss encounter ghtbkluqc95/03/2025 1:00 PM EDT Office Visit [facility] D[facility] [address] [place] [address] Sonja Jesus, LIFE SKILLS TRAINER-TESTER OPERATOR [address] [place] [address] ArrivedNOMS SWS DERMComment on above: ArrivedStart: 03-13-2024 End: 61-30-7515Yvuzwww encounter dbgpoweyl06/30/2025 9:55 AM EST Office Visit [facility] [address] [place] [address] Sonja Jesus, LIFE SKILLS TRAINER-TESTER OPERATOR [address] [place] [address] NOMS SWS DERMStart: 03-10-2024 End: 38-02-4264Xynnhnm encounter /27/2025 9:15 AM EST Office Visit [facility] [address] [place] [address] Parmjit Wall MD [address] [place] [address] NOMJillian TEAGUE FMStart: 01-28-2024 End: 17-60-5740Lbsbghm encounter procedureNOMS SWS DERMComment on above:Arrived Start: 01-21-2024 End: 36-51-2866Qpnymtc encounter ufazzwhoq76/09/2024 8:45 AM EST Office Visit [facility] [address] [place] [address] Parmjit Wall MD [address] [place] [address] NOMJillian TEAGUE FMStart: 01-09-2024 End: 74-54-4855Qvayruq encounter procedureNOMS TEAGUE FMComment on above:Arrived Start: 12-04-2023 End: 55-64-7858Pcanh metabolic 1998 panel - Serum or PlasmaBasic metabolic panel Lab Routine Encounter for long-term (current) use of medications Expected: (Approximate), Expires: 12/03/2024[facility] HealthcareComment on above: Expected: 12/04/2023 (Approximate), Expires: 12/03/2024Start: 12-04-2023 End: 56-34-7159ROB W Auto Differential panel - BloodCBC and differential Lab Routine Encounter for long-term (current) use of medications Expected: 11/13 (Approximate), Expires: 12/03/2024[facility] HealthcareComment on above: Expected: 12/04/2023 (Approximate), Expires: 12/03/2024Start: 12-04-2023 End: 94-65-8738Mbuabhmulw A1c/Hemoglobin.total in BloodHemoglobin A1c Lab Routine Prediabetes Expected: 12/04/2023 (Approximate), Expires: 12/03/2024[facility] Work Phone: Comment on above:Expected: 12/04/2023 (Approximate), Expires: 12/03/2024Start: 12-04-2023 End: 51-28-4242Sizolpz function 2000 panel - Serum or PlasmaHepatic function panel Lab Routine Encounter for long-term (current) use of medications Expected: 12/04/2023 (Approximate), Expires: 12/03/2024[facility] HealthcareComment on above: Expected: 12/04/2023 (Approximate), Expires: 12/03/2024Start: 12-04-2023 End: 37-89-5516Hndft 1996 panel - Serum or PlasmaLipid panel Lab Routine Dyslipidemia (CMS/HCC) Expected: 12/04/2023 (Approximate), Expires: 12/03/2024 [facility] HealthcareComment on above:Expected: 12/04/2023 (Approximate), Expires: 12/03/2024Start: 12-04-2023 End: 15-00-9440Edattgatsoz [Units/volume] in Serum or PlasmaTSH Lab Routine Class 1 obesity due to excess calories without serious comorbidity with body mass index (BMI) of 30.0 to 30.9 in adult Expected: 12/04/2023 (Approximate), Expires: 12/03/2024N[facility] HealthcareComment on above:Expected: 12/04/2023 (Approximate), Expires: 12/03/2024Start: 12-04-2023 End: 94-19-2358Yieoucp encounter procedureNOMS CWM FMComment on above:Arrived Start: 11-27-2023 End: 56-81-3512Xveldvx encounter hjlufclrz24/15/2024 11:45 AM EDT Office Visit [facility] [address] [place] [address] Parmjit Wall MD [address] [place] [address] ArrivedNOMS CWM FMComment on above:ArrivedStart: 51-05-0912Ptgxfrwwj for malignant neoplasm of breastMammogramNOCO HealthcareStart: 09-28-2024Medicare Annual Wellness (AWV)Medicare Annual Wellness (AWV)[facility] HealthcareStart: 19-32-4577PJAAU-19 VACCINE ( season)COVID-19 VACCINE ( season)[facility] SystemStart: 91-95-0606Eerlueeuu vaccinationInfluenza Vaccine (#1)[facility] HealthcareStart: 55-79-7301Xypivd vaccine hzv live for subcutaneous useZOSTER (SHINGLES) VACCINE (3 of 3)[facility] SystemStart: 13-13-1797Pcntkxmqt for malignant neoplasm of breastMAMMOGRAM SCREENING DISCUSSIONKettering Health – Soin Medical Centertart: 05-22-2018Medicare Annual Wellness (AWV) Medicare Annual Wellness (AWV)[facility] HealthcareStart: 73-97-2144Fmvcppfnd for malignant neoplasm of colonCOLORECTAL CANCER SCREENING DISCUSSIONKettering Health – Soin Medical Centertart: 77-77-6623Wwiqh panelLIPID SCREENINGKettering Health – Soin Medical Centertart: 13-38-7150Kltwiiitm for malignant neoplasm of cervixCERVICAL CANCER SCREENING DISCUSSIONKettering Health – Soin Medical Centertart: 94-32-0184Ezwlk diphtheria, tetanus and acellular pertussis (DTaP) vaccinationTDAP (ADULT)[facility] Centertart: 25-41-4596Szkfzepte C screeningHEPATITIS C VIRUS SCREENINGAdena Regional Medical Center Start: 21-12-2686Yyrenewat for malignant neoplasm of colonNOMS HealthcareStart: 47-89-0377Zdvwqseja for osteoporosisDEXA SCAN DISCUSSIONAdena Regional Medical Center Dermatopathology examDermatopathology exam Pathology and Cytology Timed Neoplasm of unspecified behavior of bone, soft tissue, and skin Release Upon Ordering for 1 Occurrences starting 01/28/2024[facility] Work Phone: comment on above:Release Upon Ordering for 1 Occurrences starting 01/28/2024 Immunizations Immunization DateImmunizationNotesCare UnkieyivQbdsehoj71-08-4012cizxrxzpx virus vaccine, unspecified formulationParmjit Wall MD Work Phone[facility] LouisEfvzjhjpvu32-43-2140mmofvs vaccine, unspecified formulationJoaquin Rosales MD Work Phone: [facility] CenterLeooap86-94-4232ywzckvtwx virus vaccine, unspecified formulationParmjit Wall MD Work Phone: [facility] Payers DatePayer CategoryPayerPolicy [id number] Care (unspecified)[employer] Plan Member Subscriber Plan / Payer (Effective 2024-Present) Name: DASHAWN NELSON J Relation to Subscriber: Self Name: Dashawn Nelson Payer ID: Not on file Type: Not on file Address: [address] [id number] 2025Medicare [id number] 2022Self-pay2022Medicare (Managed Care) [id number] 2020Medicare [id number] [id number] 1960 [id number] 2.0.1.304610.3.5[id number] 2.16840.1.309979.3.57[id number] 2.16840.1.041172.3.57[id number] 2.16840.1.310068.3.57[id number] 2.16840.1.885683.3.579.[id number] 2.16840.1.941726.3.57[id number] 2.16840.1.094537.3.57[id number] 2.16840.1.090317.3.57[id number] 2.16840.1.865100.3.57[id number] 2.16.840.1.203490.3.57[id number] 2.16.840.1.121300.3.57[id number] 2.16.840.1.589642.3.57[id number] 2.16.840.1.037109.3.57[id number] 2.16.840.1.628237.3.57[id number] 2.16.840.1.242095.3.57[id number] 2.16.840.1.878862.3.57[id number] 2.16.840.1.284040.3.579.2.1259BlKindred Hospital [id number] 2.1[id number] 2.16.840.1.330156.3.579.2.531 Social History DateTypeDetailFacilityStart: 01-24-2023 End: 80-08-0364Juy [facility]Start: 91-70-7549Wfu Assigned At [facility] Hospitaltart: 02-16-2023 End: 90-74-6192Eiwpzmq smoking status NHISEx-smokerNOCO Healthcare End: 36-73-7792Caiirbl of tobacco useCurrent smokerNOCO Healthcare End: 67-96-0552Xuysvhp of tobacco useCigarette SmokerENCOMPASS HEALTH HealthcareStart: 02-16-2023 End: 72-69-2512Vvdbqoj use and exposureSmokeless tobacco non-userNOMS Healthcare Start: 10-29-2023 End: 19-90-2432Ansxjcpmi beverage intakeCurrent drinker of alcohol (finding)[facility] HealthcareStart: 01-24-2023 End: 09-45-1474Qbmtake of Social functionNOMS HealthcareWithin the last year, have you been afraid of your partner or ex-partner?NoNOMS HealthcareAre you now , , , , never or living with a partner? MarriedNOMS HealthcareHow often to you have a drink containing alcohol?2-4 times a monthNOMS HealthcareHow many standard drinks containing alcohol do you have on a typical day?3 or 4NOMS HealthcareHow often do you have 6 or more drinks on 1 occasion?NeverNOMS HealthcareHow hard is it for you to pay for the very basics like food, housing, medical care, and heatingNot very hardNOMS HealthcareDo you feel stress - tense, restless, nervous, or anxious, or unable to sleep at night because yourmind is troubled all the time - these days [OSQ]Only a littleNOMS Healthcare(I/We) worried whether (my/our) food would run out before (I/we) got money to buy more.Never trueNOMS HealthcareIn the past 12 months, has lack of transportation kept you from medical appointments or from getting medications?No [facility] HealthcareStart: 99-35-9676Pjgsepa CommentLast smoked : > 10 yearsNOMS HealthcareStart: 66-79-8846Pkpjxmc Commentcaffeine: 2 coffee, 1 diet; 2-3 cups per dayNOMS HealthcareStart: 40-12-1864Aig assigned at birthNot on fileNOMS HealthcareHow often to you have a drink containing alcohol?2-3 time sa weekNOMS HealthcareHow many standard drinks containing alcohol do you have on a typical day?1 or 2NOMS HealthcareTobacco smoking status NHISTobacco smoking consumption unknownL[facility] Hospital SystemStart: 04-39-6292SewYefepk (finding)[facility] Goals DatePatient GoalDesired Activity/StatePersonal health goal Clinical Notes 09-13-2021 to 10-23-2024 Note Date & LsflJrhkTlnmcnxl33-58-8058 History of Present illness Narrative* Rory Kilgore, DPM - 10/23/2024 1:30 PM EDT Patient: Dashawn Nelson : 1955 PCP: Parmjit Wall MD SUBJECTIVE This is a 69 y.o. female that presents today for a chief complaint of migration of her left great toe that rubs on her shoe as well as some issues with walking and bike riding with a dorsum of her left foot. She states it has increased in severity over time and denies any treatments. She has orthotics from a previous provider. Allergies: No Known Allergies Past Medical History: Past Medical History: Diagnosis Date Actinic keratosis Anxiety Bilateral hearing loss, unspecified hearing loss type Chronic constipation Cyst of ovary, unspecified laterality DDD (degenerative disc disease), lumbar Depression Diplopia Diverticulosis of large intestine without hemorrhage Encounter for long-term (current) use of medications Family history of ischemic heart disease Fracture dislocation of foot joint, unspecified laterality, sequela Gastroesophageal reflux disease without esophagitis Hypersomnia Major depressive disorder with single episode, in partial remission Migraine without status migrainosus, not intractable, unspecified migraine type Mild episode of recurrent major depressive disorder Mixed hyperlipidemia Plantar fasciitis, right Postmenopausal bleeding Prediabetes Trochanteric bursitis, left hip Vertigo Medications: Current Outpatient Medications: aspirin 81 MG EC tablet, 1 (one) time each day at the same time, Disp: , Rfl: buPROPion XL (Wellbutrin XL) 150 MG 24 hr tablet, Take 1 tablet (150 mg) by mouth in the morning. Do not crush, chew, or split., Disp: 90 tablet, Rfl: 3 buPROPion XL (Wellbutrin XL) 300 MG 24 hr tablet, Take 1 tablet (300 mg) by mouth Daily, Disp: 90 tablet, Rfl: 1 escitalopram (Lexapro) 20 MG tablet, Take 1 tablet (20 mg) by mouth Daily, Disp: 90 tablet, Rfl: 3 loratadine (Claritin) 10 MG tablet, 1 (one) time each day at the same time, Disp: , Rfl: Multiple Vitamin (Multivitamin Adult) tablet, Orally, Disp: , Rfl: simvastatin (Zocor) 40 MG tablet, Take 1 tablet (40 mg) by mouth at bedtime, Disp: 90 tablet, Rfl: 3 Social History: Social History Socioeconomic History Marital status: Spouse name: Not on file Number of children: Not on file Years of education: Not on file Highest education level: Not on file Occupational History Not on file Tobacco Use Smoking status: Former Current packs/day: 0.00 Types: Cigarettes Quit date: 08/31/2010 Years since quittin.1 Smokeless tobacco: Never Tobacco comments: Last smoked : > 10 years Vaping Use Vaping status: Never Used Substance and Sexual Activity Alcohol use: Yes Alcohol/week: 1.0 - 2.0 standard drink of alcohol Types: 1 - 2 Standard drinks or equivalent per week Comment: caffeine: 2 coffee, 1 diet; 2-3 cups per day Drug use: Never Sexual activity: Not on file Other Topics Concern Not on file Social History Narrative Not on file Social Drivers of Health Financial Resource Strain: Low Risk (07/13/2024) Overall Financial Resource Strain (CARDIA) Difficulty of Paying Living Expenses: Not very hard Food Insecurity: No Food Insecurity (07/13/2024) Hunger Vital Sign Worried About Running Out of Food in the Last Year: Never true Ran Out of Food in the Last Year: Never true Transportation Needs: No Transportation Needs (07/13/2024) PRAPARE - Transportation Lack of Transportation (Medical): No Lack of Transportation (Non-Medical): No Physical Activity: Sufficiently Active (07/13/2024) Exercise Vital Sign Days of Exercise per Week: 4 days Minutes of Exercise per Session: 40 min Stress: No Stress Concern Present (07/13/2024) [place] [employer] - Occupational Stress Questionnaire Feeling of Stress : Only a little Social Connections: Moderately Integrated (07/13/2024) Social Connection and Isolation Panel [NHANES] Frequency of Communication with Friends and Family: More than three times a week Frequency of Social Gatherings with Friends and Family: Twice a week Attends Christian Services: More than 4 times per year Active Member of Clubs or Organizations: No Attends Club or Organization Meetings: Never Marital Status: Intimate Partner Violence: Not At Risk (07/13/2024) Humiliation, Afraid, Rape, and Kick questionnaire Fear of Current or Ex-Partner: No Emotionally Abused: No Physically Abused: No Sexually Abused: No Housing Stability: Low Risk (07/13/2024) Housing Stability Vital Sign Unable to Pay for Housing in the Last Year: No Number of Times Moved in the Last Year: 0 Homeless in the Last Year: No ROS: Gastrointestinal: denies abdominal pain, ulcers, or changes in appetite or bowel habits Musculoskeletal: positive hx of arthritis, loss of strength, with positive history of back pain Cardiovascular: denies CP, palpitations, irregular rhythms OBJECTIVE LE EXAM: DERM: Positive hair growth to b/l feet with good skin turgor noted. Negative openings in skin VASC: Palpable pedal pulsed b/l with warm to cool tibia to toes b/l NEURO: Gross sensation intact digits 1-10 and b/l feet ORTHO: +5/5 DF/PF/IN/EV right, +5/5 DF/PF/IN/EV left. 20 degrees inversion and 10 degrees eversion STJ b/l. Ankle ROM less than 10 degrees b/l. Positive pain on palpation to left EDL tendon complex near MPJ regions 2 through 5 Hallux varus left XRAY: US: ASSESSMENT 1. Capsulitis of metatarsophalangeal (MTP) joint of left foot 2. Hallux varus (acquired), left foot PLAN Patient to continue with oral anti - inflammatories as needed for pain and recommended OTC medications such as tylenol or Ibuprofen Discuss condition of metatarsus adductus as well as causative factors including tendon imbalance and recommend that she returned to orthotics daily and she may consider possible new orthotics in the future. Briefly discussed surgical intervention however not warranted at this time Rory Kilgore DPM documented in this encounterTen[facility]. [id number] History of Present illness Narrative* Uma Jay - 09/30/2024 10:45 AM EDT Here today for possible breast reduction. Bra size 42 DD. Problems with rash under breasts. Neck and back pain noted. Had physical therapy also. * Joaquin Rosales MD - 09/30/2024 10:45 AM EDT Referring Provider: Parmjit Wall MD Reason for Consultation: Dashawn Nelson is a 69 y.o. female Patient presents for Chief Complaint Patient presents with Breast Problem . There were no vitals filed for this visit. Here today for possible breast reduction. Bra size 42 DD. Problems with rash under breasts. Neck and back pain noted. Had physical therapy also. General Examination General Appearance: comfortable, looks well, no acute distress. Head: Normocephalic. Cranial nerves grossly intact. Neck/Thyroid: supple. Skin: Warm and dry. Lungs: Non labored respirations. Abdomen: soft, nontender, nondistended. All pertinent labs, imaging, and testing were personally reviewed by me on 09/30/2024. Visit Summary HPI: Presents today for discussion and evaluation for breast reduction surgery. Her current bra cup sizeis double D. She has been wearing this bra for multiple years. She has been considering surgical breast reduction for due to significant problems with upper back and shoulder pain. She has tried conservative measures such as supportive bras, heat and ice and massage. The supportive measures have been ineffective. Patient complains of the following symptoms that shefeels are related to the size, weight and position of her breasts on her frame: Rashes under breasts that are partially controlled with OTC and prescription medicines. She also uses extra hygiene to help control this. Complains of pain in her upper back and shoulders She has difficulty finding clothes and bras She has tried physical therapy to improve these symptoms with only minimal relief. She denies any breast issues including masses or discharge. Her last mammogram was approximately June 2019 excise . Examination: BREASTS: no masses palpable bilaterally. Right breast: Sternal notch to nipple 28 cm. Nipple to IMF 13.5 cm. Left breast: Sternal notch to nipple 27 cm. Nipple to IMF 14 cm.. Assessment: Assessment: Macromastia - N62 (Primary) Pain in thoracic spine - M54.6 Plan: Treatment: Macromastia Notes: The patient would likely benefit from bilateral breast reduction. I approximate 300-500 grams of removal from each side. The patient was explained that her BMI should be 30 or below prior to proceeding to minimize her perioperative risk. documented in this [facility]07-25-2025 History of Present illness Narrative* Parmjit Wall MD - 09/05/2024 12:42 PM EDTAssociated Problem(s): Neck pain Feels like being pulled forward and frequent pain. No change with PT and refer to plastic surgeon. * Parmjit Wall MD - 09/05/2024 12:42 PM EDTAssociated Problem(s): Macromastia Large breasts and causing pain and poor posture. Refer to plastic surgeon for evaluation. * Parmjit Wall MD - 09/05/2024 11:00 AM EDT Images from the original note were not included. Subjective Patient ID: Dashawn Nelson is a 69 y.o. female who presents for Follow-up (6W). Follow up neck pain and interested in breast reduction surgery. Patient with large breasts and veryuncomfortable. Frequent pain in neck and across top shoulders. Bra digs into shoulders and feels like pulling forward. Poor posture and feels like leaning forward. Went to PT and no change in neck pain. Continues to have discomfort and worse with activity. Frequent rash under breasts. Interested inseeing plastic surgeon. Review of Systems Respiratory: Negative for cough, [...] Assessment/Plan Problem List Items Addressed This Visit Neck pain - Primary Feels like being pulled forward and frequent pain. No change with PT and refer to plastic surgeon. Relevant Orders Ambulatory referral to Plastic Surgery Macromastia Large breasts and causing pain and poor posture. Refer to plastic surgeon for evaluation. Relevant Orders Ambulatory referral to Plastic Surgery documented in this [facility]06-20-2025 Telephone encounter Note* Telephone Encounter - Isabelle Delaney - 08/01/2024 9:14 AM EDT CORRECTION: PT [facility] w/ Jeannette Cameron PT on 08/11/24. [facility] [id number] Miscellaneous Notes* Telephone Encounter - Isabelle Delaney - 08/01/2024 9:14 AM EDT CORRECTION: PT [facility] w/ Jeannette Cameron PT on 08/11/24. documented in this encounterTen[facility] [address]. [id number] Telephone encounter Note* Telephone Encounter - Isabelle Delaney - 08/01/2024 9:12 AM EDT She contacted and we scheduled her PT [facility] 08/11 w/ Jose De La Fuente PT. [id number] Miscellaneous Notes* Telephone Encounter - Isabelle Delaney - 08/01/2024 9:12 AM EDT She contacted and we scheduled her PT [facility] 08/11 w/ Jose DeL a Fuente PT. * Telephone Encounter - Isabelle Delaney - 07/31/2024 11:33 AM EDT Tried to contact to schedule PT Eval for neck pain; lm requesting a call back. documented in this encounterTen[facility] [address]. [id number] Telephone encounter Note* Telephone Encounter - Isabelle Delaney - 07/31/2024 11:33 AM EDT Tried to contact to schedule PT Eval for neck pain; lm requesting a call back. [facility] [id number] History of Present illness Narrative* Parmjit Wall MD - 07/14/2024 10:02 AM EDTAssociated Problem(s): Overweight (BMI 25.0-29.9) Weight down 8 pounds. * Parmjit Wall MD - 07/14/2024 10:02 AM EDTAssociated Problem(s): Prediabetes Repeat labs next visit. * Parmjit Wall MD - 07/14/2024 10:02 AM EDTAssociated Problem(s): Major depressive disorder, recurrent episode, mild (HCC) (CMS/HCC) Symptoms controlled with medication and continue. * Parmjit Wall MD - 07/14/2024 9:15 AM EDT Images from the original note were not included. Subjective Patient ID: Dashawn Nelson is a 69 y.o. female who presents for Follow-up (3m/Restless legs). Follow up depression and weight. Patient feels well today. Mood controlled with medication. Not down or sad and feels happier. Interacting well with others. Not stressed out or overwhelmed. Wants to decrease wellbutrin. Stopped adipex due to constipation. Weight down 8 pounds since last visit. Tries to watch diet and eat healthy. Increased fruits and vegetables. Smaller portions and limits snacking. Tries to limit total daily calories. Review of Systems Respiratory: Negative for cough, [...] Problem List Items Addressed This Visit Dyslipidemia (CMS/HCC) Relevant Medications simvastatin (Zocor) 40 MG tablet Major depressive disorder, recurrent episode, mild (HCC) (CMS/HCC) - Primary Symptoms controlled with medication and continue. Relevant Medications buPROPion XL (Wellbutrin XL) 300 MG 24 hr tablet escitalopram (Lexapro) 20 MG tablet Prediabetes Repeat labs next visit. Overweight (BMI 25.0-29.9) Weight down 8 pounds. documented in this encounterTenet [facility]. [id number] History of Present illness Narrative* Sonja Jesus APRN-TESTER OPERATOR - 05/15/2024 1:00 PM EDT Images from the original note were not included. Lesions: Location: Left nasal sidewall Duration: 6 weeks Quality: denies bleeding Associated symptoms: white spot Treatments: none Follow up Diagnosis: Keloid Location: Right breast Last visit: 03/13/2024 Symptoms: still can feel a raised bump Status: better Procedure performed: ILK 0.5 ml/K5 Number of treatments to date: 1 All pertinent medical history, medications, and allergies were reviewed. General Exam: alert, oriented to person, place, and time, normal affect, well appearing Unaccompanied A focused exam completed based on patient reported problems, see below: 1. Actinic keratosis (2) Left Nasal Sidewall, Right Nasal Sidewall Erythematous scaly papules Patient was counseled regarding these sun-induced growths that can develop into squamous cell carcinoma if left untreated. Discussed treatment with cryotherapy. It was emphasized that any treated lesions that fail to resolve should be re- evaluated. Cryotherapy performed today; see procedure note Diagnosis: Actinic keratosis Indication: Precancerous Location: see skin exam Consent: Verbal consent was obtained and risks were discussed, including, but not limited to risks of scarring, darker or director of instrumental music pigmentary changes, recurrence, incomplete removal and infection. Method: Liquid nitrogen was used to treat the lesion(s) with two 5-10 second freeze-thaw cycles. Number of lesions treated: 2 Post-procedure instructions: Instructions were given verbally. The office will be contacted if the lesion fails to resolve despite treatment, or if a side effect develops such as abnormal crusting, scabbing, redness or tenderness Cryotherapy, skin lesion - Left Nasal Sidewall, Right Nasal Sidewall 2. Keloid Right Breast Slightly firm papule with mild telangiectasia, improved from last visit Discussed ILK to residual, patient declined further treatment today Next Visit: as scheduled documented in this encounterTenet St. [id number] History of Present illness Narrative* ADRIA Carroll - 03/13/2024 9:55 AM EST Follow up Diagnosis: Actinic Keratosis Location: chest Last visit: 1 month ago Symptoms: raised, itchy Status: Nothing left scaly lopez, but scar is raised and itchy Procedure performed: Shave biopsy Date of procedure: 01/28/2024 Here for re-evaluation All pertinent medical history, medications, and allergies were reviewed. General Exam: alert, oriented to person, place, and time, normal affect, well appearing Unaccompanied A focused exam completed based on patient reported problems, see below: 1. Keloid scar Right Breast Erythematous, firm dermal papule/plaque. No signs of precancerous actinic keratosis today. No charge per provider Given symptoms, recommend treatment with ILK today. ILK today, see MAR for details. 0.5 mL of K5 triamcinolone acetonide (Kenalog) injection 5 mg - Right Breast Next Visit: as scheduled documented in this encounterTenet St. [id number] History of Present illness Narrative* Parmjit Wall MD - 03/12/2024 9:55 AM ESTAssociated Problem(s): Overweight (BMI 25.0-29.9) Patient doing well with adipex and lost 8 pounds in 2 months. Tolerating well with only mild dry mouth. Continue with dietary changes and less calories. Need to limit snacking and smaller portions. Continue healthier choices. Need regular aerobic exercise 30 minutes at a time 5-6 days a week. Refill for second month. OARRS reviewed. Continue meds as prescribed. If develop new or worsening symptoms contact office. * Parmjit Wall MD - 03/12/2024 9:55 AM ESTAssociated Problem(s): Major depressive disorder, recurrent episode, mild (HCC) (CMS/HCC) Symptoms controlled with medication and continue. * Parmjit Wall MD - 03/12/2024 9:30 AM EST Images from the original note were not included. Subjective Patient ID: Dashawn Nelson is a 68 y.o. female who presents for Follow-up (2 m/Swollen lymph node). Follow up depression and weight. Patient feels well today. Mood controlled with medication. Not down or sad and feels happier. Interacting well with others. Taking adipex and weight down 8 pounds in 2 month. Tolerating medication without side effects except mild dry mouth. Not as hungry with medication. Smaller portions and not snacking. Increased fruits and vegetables. Tries to limit total dailycalories. Increased activity and walking almost daily. Review of Systems Respiratory: Negative for cough, [...] Assessment/Plan Problem List Items Addressed This Visit Major depressive disorder, recurrent episode, mild (HCC) (CMS/HCC) - Primary Symptoms controlled with medication and continue. Overweight (BMI 25.0-29.9) Patient doing well with adipex and lost 8 pounds in 2 months. Tolerating well with only mild dry mouth. Continue with dietary changes and less calories. Need to limit snacking and smaller portions. Continue healthier choices. Need regular aerobic exercise 30 minutes at a time 5-6 days a week. Refill for second month. OARRS reviewed. Continue meds as prescribed. If develop new or worsening symptoms contact office. Relevant Medications phentermine (Adipex-P) 37.5 MG tablet documented in this encounterTenet St. [id number] History of Present illness Narrative* Sonja Jesus, LIFE SKILL[employer] TRAINER-TESTER OPERATOR - 01/28/2024 8:30 AM EST Images from the original note were not included. Skin Check Location: Patient requests a full body skin examination Dermatologic history: history of Actinic Keratosis Last visit: 1 year ago Established patient Lesions: Location: face and chest Duration: months, since summer time Quality: denies pain, denies itch, denies bleeding Modifying factors: none Associated symptoms: red, rough Treatments: neosporin All pertinent medical history, medications, and allergies were reviewed. General Exam: alert, oriented to person, place, and time, normal affect, well appearing Unaccompanied Areas not examined despite medical recommendation: Scalp, Examined Right leg Examined Head, Face Examined Left leg Examined Neck Examined Right foot Examined Chest Examined Left foot Examined Back Examined Buttocks Examined Abdomen Examined Digits,nails: Examined Right arm Examined Patient wearing nail palestinian, Denies dark streaks under finger nails Left arm Examined Lymphatics: Not examined Hands Examined 1. Melanocytic nevus, unspecified location Right Middle Plantar Surface Scattered benign appearing, regular brown to light brown melanocytic papules and macules with similar morphology Counseled regarding these benign growths. Rarely, a nevus can develop into malignant melanoma, so any changing nevi should be promptly re-evaluated. 2. Melanocytic nevus of trunk Scattered benign appearing, regular brown to light brown melanocytic papules and macules with similar morphology Counseled regarding these benign growths. Rarely, a nevus can develop into malignant melanoma, so any changing nevi should be promptly re-evaluated. 3. Seborrheic keratosis Stuck on verrucous, variably pigmented papules and plaques. Patient was counseled regarding these benign growths. Removal is normally not necessary, but they may be removed if they are symptomatic or for cosmetic reasons. 4. Lentigines Scattered doll macules in sun-exposed areas. The patient was informed that lentigines are benign pigmented lesions that occur on sun-exposed andsun-damaged skin. No treatment is necessary. Recommended regular use of broad spectrum sunscreen SPF 30 or higher 5. Maldonado angioma Trunk Scattered maldonado-red papule(s). The patient was informed that angiomas are benign growths on the the skin. No treatment is necessary. 6. Actinic keratosis (5) Left Buccal Cheek (2), Left Forehead (2), Right Forehead Erythematous scaly papules Patient was counseled regarding these sun-induced growths that can develop into squamous cell carcinoma if left untreated. Discussed treatment with cryotherapy. It was emphasized that any treated lesions that fail to resolve should be re- evaluated. Cryotherapy performed today; see procedure note Diagnosis: Actinic keratosis Indication: Precancerous Location: see skin exam Consent: Verbal consent was obtained and risks were discussed, including, but not limited to risks of scarring, darker or director of instrumental music pigmentary changes, recurrence, incomplete removal and infection. Method: Liquid nitrogen was used to treat the lesion(s) with two 5-10 second freeze-thaw cycles. Number of lesions treated: 5 Post-procedure instructions: Instructions were given orally and in writing. The office will be contacted if the lesion fails to resolve despite treatment, or if a side effect develops such as abnormal crusting, scabbing, redness or tenderness Cryotherapy, skin lesion - Left Buccal Cheek (2), Left Forehead (2), Right Forehead 7. Neoplasm of unspecified behavior of bone, soft tissue, and skin Chest - Medial (Center) [place] pearly papule Lesion biopsy Type of biopsy: tangential Informed consent: discussed and consent obtained Informed consent comment: The risks and benefits of the biopsy were discussed. Risks include but are not limited to bleeding, infection, scarring, pain, and nerve damage. An opportunity to ask questions prior to the procedure was permitted and all questions were answered. Patient was prepped and draped in usual sterile fashion: area cleansed with alcohol. Anesthesia: the lesion was anesthetized in a standard fashion Anesthetic: 1% lidocaine w/ epinephrine 1-100,000 buffered w/ 8.4% NaHCO3 Instrument used: DermaBlade Hemostasis achieved with: electrodesiccation Outcome: patient tolerated procedure well Outcome comment: The specimen was placed in a prelabeled formalin container to be sent for pathology Post-procedure details: sterile dressing applied and wound care instructions given Post-procedure details comment: Emphasized need to contact clinic for any signs of infection, uncontrollable bleeding, or complications. Dressing type: bandage Additional details: Photo taken Amount of lidocaine used: 1.0 cc Specimen A - Dermatopathology exam Differential Diagnosis: BCC vs other Check Margins: No Size of lesion: 1.1 x 1.0 cm Shave biopsy today, see procedure note. Patient will be notified of results. Follow up pending biopsy results. Next Visit: pending biopsy results, 1 year skin exam documented in this encounterTenet St. [id number] History of Present illness Narrative* Parmjit Wall MD - 01/09/2024 9:47 AM ESTAssociated Problem(s): Class 1 obesity due to excess calories without serious comorbidity with body mass index (BMI) of 30.0 to 30.9 in adult Patient doing well with adipex and lost 7 pounds in first month. Tolerating well with only mild drymouth. Continue with dietary changes and less calories. Need to limit snacking and smaller portions. Continue healthier choices. Need regular aerobic exercise 30 minutes at a time 5-6 days a week. Refill for second month. OARRS reviewed. Continue meds as prescribed. If develop new or worsening sympt oms contact office. * Parmjit Wall MD - 01/09/2024 9:46 AM ESTAssociated Problem(s): Major depressive disorder, recurrent episode, mild (HCC) (CMS/HCC) Symptoms controlled with medication and continue. * Parmjit Wall MD - 01/09/2024 8:45 AM EST Images from the original note were not included. Subjective Patient ID: Dashawn Nelson is a 68 y.o. female who presents for Follow-up (1M ). Follow up depression and weight. Patient feels well today. Mood controlled with medication. Not down or sad and feels happier. Interacting well with others. Started adipex last visit and weight down 7 pounds in first month. Tolerating medication without side effects except mild dry mouth. Not as hungry with medication. Smaller portions and not snacking. Increased fruits and vegetables. Tries to limit total daily calories. Increased activity and walking almost daily. Review of Systems Respiratory: Negative for cough, [...] Assessment/Plan Problem List Items Addressed This Visit Major depressive disorder, recurrent episode, mild (HCC) (CMS/HCC) - Primary Symptoms controlled with medication and continue. Class 1 obesity due to excess calories without serious comorbidity with body mass index (BMI) of 30.0 to 30.9 in adult Patient doing well with adipex and lost 7 pounds in first month. Tolerating well with only mild drymouth. Continue with dietary changes and less calories. Need to limit snacking and smaller portions. Continue healthier choices. Need regular aerobic exercise 30 minutes at a time 5-6 days a week. Refill for second month. OARRS reviewed. Continue meds as prescribed. If develop new or worsening sympt oms contact office. Relevant Medications phentermine (Adipex-P) 37.5 MG tablet documented in this encounterTen[facility]. [id number] History of Present illness Narrative* Parmjit Wall MD - 12/04/2023 9:59 AM EDTAssociated Problem(s): Medicare annual wellness visit, subsequent Due for labs. Discussed proper diet and regular aerobic exercise. Need aerobic exercise 5-6 days a week for 30 minutes at a time. Smaller portions and limit total calories. Colonoscopy every 10 years. Tetanus every 10 years. Advised not to smoke. Discussed daily Aspirin therapy. * Parmjit Wall MD - 12/04/2023 9:59 AM EDTAssociated Problem(s): Class 1 obesity due to excess calories without serious comorbidity with bodymass index (BMI) of 30.0 to 30.9 in [...] month. OARRS reviewed. Continue medications as prescribed. * Parmjit Wall MD - 12/04/2023 9:30 AM EDT Images from the original note were not [...] Problem List Items Addressed This Visit Dyslipidemia ([facility]) Relevant Orders Lipid panel Prediabetes Relevant Orders [...] Other Relevant Orders TSH documented in this encounterTenet St. [id number] History of Present illness Narrative* Parmjit Wall MD - 11/27/2023 12:01 PM EDTAssociated Problem(s): Sialadenitis Appears to have enlarged salivary gland and tenderness. Treat with augmentin. Use warm compresses PRN and try sour candy. If no improvement will need US. * Parmjit Wall MD - 11/27/2023 11:45 AM EDT Images from the original note were not [...] (Augmentin) 875-125 MG tablet documented in this encounterTen[facility]. [id number] History of Present illness Narrative* Parmjit Wall MD - 10/29/2023 9:59 AM EDTAssociated Problem(s): Seasonal allergic rhinitis due to pollen Symptoms controlled with medication and continue. * Parmjit Wall MD - 10/29/2023 9:59 AM EDTAssociated Problem(s): Major depressive disorder, recurrent episode, mild (HCC) (CMS/HCC) Symptoms controlled with medication and continue. * Parmjit Wall MD - 10/29/2023 9:59 AM EDTAssociated Problem(s): DDD (degenerative disc disease), lumbar Pain stable and use OTC PRN. Increase activity and walk regularly. * Parmjit Wall MD - 10/29/2023 9:15 AM EDT Images from the original note were not included. Subjective Patient ID: Dashawn Nelson is a 68 y.o. female who presents for No chief complaint on file.. Follow up depression, back pain, and allergies. Patient stable today. Mood controlled with medication. Not down as or sad and feels happier. Able to interact well with others and doing things for fun. Recently injured left leg and not able to ride bike as much which seemed to worsen symptoms but tolerable. Tolerating medication without side effects. Back pain stable. Mild pain in low back and across top hips. No radiation into gluteal region or down legs. Pain increased with activity such as bending or lifting. Using OTC PRN and helps. Able to stay active and pain not limiting activity. Allergies controlled with medication. No congestion or rhinorrhea. No COTE or sinus pressure. Ears not plugg ed or popping. Review of Systems Respiratory: Negative for cough, [...] Assessment/Plan Problem List Items Addressed This Visit DDD (degenerative disc disease), lumbar Pain stable and use OTC PRN. Increase activity and walk regularly. Major depressive disorder, recurrent episode, mild (HCC) (CMS/HCC) - Primary Symptoms controlled with medication and continue. Seasonal allergic rhinitis due to pollen Symptoms controlled with medication and continue. documented in this encounterTenet St. [id number] Evaluation note* Encounter Date Diagnosis Assessment Notes Treatment Notes Treatment Clinical Notes Nov, Acute pain of right shoulder (IC D-10 - M25.511) Nov,ontusion of right hand, initial encounter (ICD-10 - S60.221A)Wear the Eduar wrap for comfort and compression. Take ibuprofen as needed for pain. Ice and elevate your hand 2-3 times a day. Follow-up with your orthopedic physician tomorrow as scheduled. Nov,ight hand pain (ICD-10 - M79.641) Nov,therContusion material was printed [employer] Other 08-02-2022 NotePROCEDURE: XR HIPS CELINA 3_4V WO PELVIS HISTORY: Low back pain , chronic bilateral hip pain COMPARISON: None. FINDINGS: BONES:No fracture, acute abnormality, or significant arthropathy. SOFT TISSUES:No visible soft tissue swelling. EFFUSION:None visible. OTHER: Negative. IMPRESSION: 1. No acute bone abnormality or bone lesion. 2. Minimal degenerative changes. Electronically authenticated by: EARNESTINE WALKER Date: 2021-09-13 08:46[facility] noteNo assessment information availableSt. [facility] Work Phone: Evaluation note* Diagnosis Major depressive disorder, recurrent episode, mild [...] Sialadenitis- Primary Sialoadenitis documented in this encounter [facility] HealthcareEvaluation note* Diagnosis Major depressive disorder, recurrent episode, mild [...] of other medications documented in this encounter [facility] note* Diagnosis Major depressive disorder, recurrent episode, mild [...] for long-term (current) use of other medications Major depressive disorder, recurrent episode, mild (HCC) (CMS/HCC)- Primary Major depressive disorder, recurrent episode, mild Class 1 obesity due to excess calories without serious comorbidity with body mass index (BMI) of 30.0 to 30.9 in adult documented in this encounter [facility] HealthcareEvaluation note* Diagnosis Major depressive disorder, recurrent episode, mild (HCC) (CMS/HCC)- Primary Major depressive disorder, recurrent episode, mild DDD (degenerative disc disease), lumbar Degeneration of lumbar or lumbosacral intervertebral disc Seasonal allergic rhinitis due to pollen documented in this encounter [facility] HealthcareEvaluation note* Diagnosis Major depressive disorder, recurrent episode, mild [...] for long-term (current) use of other medications Major depressive disorder, recurrent episode, mild (HCC) (CMS/HCC)- Primary Major depressive disorder, recurrent episode, mild Class 1 obesity due to excess calories without serious comorbidity with body mass index (BMI) of 30.0 to 30.9 in adult Melanocytic nevus, unspecified location- Primary Melanocytic nevus of trunk Benign neoplasm of skin of trunk, except scrotum Seborrheic keratosis Lentigines Maldonado angioma Actinic keratosis Neoplasm of unspecified behavior of bone, soft tissue, and skin documented in this encounter [facility]* Diagnosis Major depressive disorder, recurrent episode, mild [...] for long-term (current) use of other medications Major depressive disorder, recurrent episode, mild (HCC) (CMS/HCC)- Primary Major depressive disorder, recurrent episode, mild Class 1 obesity due to excess calories without serious comorbidity with body mass index (BMI) of 30.0 to 30.9 in adult Major depressive disorder, recurrent episode, mild (HCC) (CMS/HCC)- Primary Major depressive disorder, recurrent episode, mild Overweight (BMI 25.0-29.9) Overweight documented in this encounter [facility] HealthcareEvaluation note* Diagnosis Major depressive disorder, recurrent episode, mild [...] for long-term (current) use of other medications Major depressive disorder, recurrent episode, mild (HCC) (CMS/HCC)- Primary Major depressive disorder, recurrent episode, mild Class 1 obesity due to excess calories without serious comorbidity with body mass index (BMI) of 30.0 to 30.9 in adult Major depressive disorder, recurrent episode, mild (HCC) (CMS/HCC)- Primary Major depressive disorder, recurrent episode, mild Overweight (BMI 25.0-29.9) Overweight Keloid scar documented in this encounter [facility] HealthcareEvaluation note* Diagnosis Major depressive disorder, recurrent episode, mild [...] for long-term (current) use of other medications Major depressive disorder, recurrent episode, mild (HCC) (CMS/HCC)- Primary Major depressive disorder, recurrent episode, mild Class 1 obesity due to excess calories without serious comorbidity with body mass index (BMI) of 30.0 to 30.9 in adult Major depressive disorder, recurrent episode, mild (HCC) (CMS/HCC)- Primary Major depressive disorder, recurrent episode, mild Overweight (BMI 25.0-29.9) Overweight Overweight (BMI 25.0-29.9) Overweight documented in this encounter [facility] HealthcareEvaluation note* Diagnosis Major depressive disorder, recurrent episode, mild [...] for long-term (current) use of other medications Major depressive disorder, recurrent episode, mild (HCC) (CMS/HCC)- Primary Major depressive disorder, recurrent episode, mild Class 1 obesity due to excess calories without serious comorbidity with body mass index (BMI) of 30.0 to 30.9 in adult Major depressive disorder, recurrent episode, mild (HCC) (CMS/HCC)- Primary Major depressive disorder, recurrent episode, mild Overweight (BMI 25.0-29.9) Overweight Actinic keratosis Keloid Keloid scar documented in this encounter [facility]* Diagnosis Major depressive disorder, recurrent episode, mild [...] for long-term (current) use of other medications Major depressive disorder, recurrent episode, mild (HCC) (CMS/HCC)- Primary Major depressive disorder, recurrent episode, mild Class 1 obesity due to excess calories without serious comorbidity with body mass index (BMI) of 30.0 to 30.9 in adult Major depressive disorder, recurrent episode, mild (HCC) (CMS/HCC)- Primary Major depressive disorder, recurrent episode, mild Overweight (BMI 25.0-29.9) Overweight Major depressive disorder, recurrent episode, mild (HCC) (CMS/HCC)- Primary Major depressive disorder, recurrent episode, mild Prediabetes Other abnormal glucose Overweight (BMI 25.0-29.9) Overweight Dyslipidemia (CMS/HCC) Other and unspecified hyperlipidemia documented in this encounter [facility]Evaluation note* Diagnosis Major depressive disorder, recurrent episode, mild- Primary Major depressive disorder, recurrent episode, mild DDD (degenerative disc disease), lumbar Degeneration of lumbar or lumbosacral intervertebral disc Seasonal allergic rhinitis due to pollen Major depressive disorder, recurrent episode, mild- Primary Major depressive disorder, recurrent episode, mild DDD (degenerative disc disease), lumbar Degeneration of lumbar or lumbosacral intervertebral disc Seasonal allergic rhinitis due to pollen Gastroesophageal reflux disease without esophagitis Esophageal reflux Major depressive disorder, recurrent episode, mild- Primary Major depressive disorder, recurrent episode, mild DDD (degenerative disc disease), lumbar Degeneration of lumbar or lumbosacral intervertebral disc Gastroesophageal reflux disease without esophagitis Esophageal reflux Seasonal allergic rhinitis due to pollen Major depressive disorder, recurrent episode, mild- Primary Major depressive disorder, recurrent episode, mild DDD (degenerative disc disease), lumbar Degeneration of lumbar or lumbosacral intervertebral disc Seasonal allergic rhinitis due to pollen Medicare annual wellness visit, subsequent- Primary Dyslipidemia Other and unspecified hyperlipidemia Prediabetes Other abnormal glucose Class 1 obesity due to excess calories without serious comorbidity with body mass index (BMI) of 30.0 to 30.9 in adult Encounter for long-term (current) use of medications Encounter for long-term (current) use of other medications Major depressive disorder, recurrent episode, mild- Primary Major depressive disorder, recurrent episode, mild Class 1 obesity due to excess calories without serious comorbidity with body mass index (BMI) of 30.0 to 30.9 in adult Major depressive disorder, recurrent episode, mild- Primary Major depressive disorder, recurrent episode, mild Overweight (BMI 25.0-29.9) Overweight Major depressive disorder, recurrent episode, mild- Primary Major depressive disorder, recurrent episode, mild Prediabetes Other abnormal glucose Overweight (BMI 25.0-29.9) Overweight Dyslipidemia Other and unspecified hyperlipidemia Neck pain- Primary Cervicalgia documented in this encounter [facility] note* Diagnosis Major depressive disorder, recurrent episode, mild- Primary Major depressive disorder, recurrent episode, mild DDD (degenerative disc disease), lumbar Degeneration of lumbar or lumbosacral intervertebral disc Seasonal allergic rhinitis due to pollen Major depressive disorder, recurrent episode, mild- Primary Major depressive disorder, recurrent episode, mild DDD (degenerative disc disease), lumbar Degeneration of lumbar or lumbosacral intervertebral disc Seasonal allergic rhinitis due to pollen Gastroesophageal reflux disease without esophagitis Esophageal reflux Major depressive disorder, recurrent episode, mild- Primary Major depressive disorder, recurrent episode, mild DDD (degenerative disc disease), lumbar Degeneration of lumbar or lumbosacral intervertebral disc Gastroesophageal reflux disease without esophagitis Esophageal reflux Seasonal allergic rhinitis due to pollen Major depressive disorder, recurrent episode, mild- Primary Major depressive disorder, recurrent episode, mild DDD (degenerative disc disease), lumbar Degeneration of lumbar or lumbosacral intervertebral disc Seasonal allergic rhinitis due to pollen Medicare annual wellness visit, subsequent- Primary Dyslipidemia Other and unspecified hyperlipidemia Prediabetes Other abnormal glucose Class 1 obesity due to excess calories without serious comorbidity with body mass index (BMI) of 30.0 to 30.9 in adult Encounter for long-term (current) use of medications Encounter for long-term (current) use of other medications Major depressive disorder, recurrent episode, mild- Primary Major depressive disorder, recurrent episode, mild Class 1 obesity due to excess calories without serious comorbidity with body mass index (BMI) of 30.0 to 30.9 in adult Major depressive disorder, recurrent episode, mild- Primary Major depressive disorder, recurrent episode, mild Overweight (BMI 25.0-29.9) Overweight Major depressive disorder, recurrent episode, mild- Primary Major depressive disorder, recurrent episode, mild Prediabetes Other abnormal glucose Overweight (BMI 25.0-29.9) Overweight Dyslipidemia Other and unspecified hyperlipidemia Neck pain- Primary Cervicalgia Macromastia Hypertrophy of breast documented in this encounter [facility] HealthcareEvaluation note* Diagnosis Macromastia- Primary Hypertrophy of breast Thoracic spine pain Pain in thoracic spine [facility] Diagnosis Major depressive disorder, recurrent episode, mild- Primary Major depressive disorder, recurrent episode, mild DDD (degenerative disc disease), lumbar Degeneration of lumbar or lumbosacral intervertebral disc Seasonal allergic rhinitis due to pollen Major depressive disorder, recurrent episode, mild- Primary Major depressive disorder, recurrent episode, mild DDD (degenerative disc disease), lumbar Degeneration of lumbar or lumbosacral intervertebral disc Seasonal allergic rhinitis due to pollen Gastroesophageal reflux disease without esophagitis Esophageal reflux Major depressive disorder, recurrent episode, mild- Primary Major depressive disorder, recurrent episode, mild DDD (degenerative disc disease), lumbar Degeneration of lumbar or lumbosacral intervertebral disc Gastroesophageal reflux disease without esophagitis Esophageal reflux Seasonal allergic rhinitis due to pollen Major depressive disorder, recurrent episode, mild- Primary Major depressive disorder, recurrent episode, mild DDD (degenerative disc disease), lumbar Degeneration of lumbar or lumbosacral intervertebral disc Seasonal allergic rhinitis due to pollen Medicare annual wellness visit, subsequent- Primary Dyslipidemia Other and unspecified hyperlipidemia Prediabetes Other abnormal glucose Class 1 obesity due to excess calories without serious comorbidity with body mass index (BMI) of 30.0 to 30.9 in adult Encounter for long-term (current) use of medications Encounter for long-term (current) use of other medications Major depressive disorder, recurrent episode, mild- Primary Major depressive disorder, recurrent episode, mild Class 1 obesity due to excess calories without serious comorbidity with body mass index (BMI) of 30.0 to 30.9 in adult Major depressive disorder, recurrent episode, mild- Primary Major depressive disorder, recurrent episode, mild Overweight (BMI 25.0-29.9) Overweight Major depressive disorder, recurrent episode, mild- Primary Major depressive disorder, recurrent episode, mild Prediabetes Other abnormal glucose Overweight (BMI 25.0-29.9) Overweight Dyslipidemia Other and unspecified hyperlipidemia Neck pain- Primary Cervicalgia Macromastia Hypertrophy of breast Capsulitis of metatarsophalangeal (MTP) joint of left foot- Primary Hallux varus (acquired), left foot documented in this encounter [facility] HealthcareEvaluation note* Diagnosis Onset Date Resolution Status Admit Date Medicare annual wellness visit, jarene nt acuteOctober 2024 9:16am [facility] Work Phone: History general Narrative - Reported* Type Description Date Medical History depression Medical Historyhigh cholesterol [employer] Other Reason for referral (narrative)No reason for referral information availablePromedica Fost[facility] Work Phone: Reason for visit Narrative* Rehabilitation - Outpatient (Routine) - AuthorizedSpecialtyDiagnoses / ProceduresReferred By ContactReferred To ContactPhysical Therapy Diagnoses Neck pain Procedures [place] OFFICE/OUTPATIENT NEW HIGH MDM 60 MINUTES Parmjit Wall MD [address] [place] [address] Phone: tel: fax: Jeannette Cameron, PT [address] [address] Phone: tel: fax: Referral IDStatusReasonStart DateExpiration DateVisits RequestedVisits [id number] Specialty Services Required 59999 [facility] Healthcare Summary Purpose Family History Relationship Condition Age at Onset Recorded Date/T kathryn father Unknown motherDeceasedUnknown Advance Directives Advance Directive Response Recorded Date/ Time Advance Directives No December 14, 2021 8:29am Chief Complaint and Reason for Visit Reason for Visit Admit Date [place] [facility] [place] December 04, 2024 9:16am Additional Source Comments REASON FOR VISIT (unrecogniz ed section and content) ReasonCommentsEarachePain at base of ear, goes down neckReasonCommentsFollow-up 1MReasonCommentsSkin CheckReasonCommentsFollow-up2 mSwollen lymph nodeReason CommentsFollow-upReasonOnset DateCommentsMed Rtkyco5704/08/2024ReasonOnset Date CommentsMed Khfrgf1504/22/2024ReasonCommentsSuspicious Skin LesionKeloidReason CommentsFollow-ha8hYawrdyyt legsReasonOnset DateCommentsPT Initial Eval 07/31/2024Referral needs to be sent back for auth once scheduled.ReasonOnset CptjPffrkzuhGbpktfowbk23/20/2025ReasonCommentsFollow-dy3TFhbksrQxjrqigbQoiacz ProblemSpecialtyDiagnoses / ProceduresReferred By ContactReferred To Contact Plastic Surgery Diagnoses Macromastia Neck pain Parmjit Wall MD [address] [place] [address] Phone: tel: fax: Joaquin Rosales MD [address] [facility] [address] [place] [address] Phone: tel: fax: Referral IDStatusReasonStart DateExpiration DateVisits RequestedVisits [id number]/29/20258/[id number] Pain Care Teams (unrecognized sec tion and content) Team Status: Inactive Member Role Status Dates Jenny Long DIVISION CHIEF-C Attending Provider Active Team MemberRelationshipSpecialtyStart DateEnd Date Parmjit Wall MD [address] [place] [phone] PCP - GeneralFamily Medicine05/08/23Team MemberRelationshipSpecialtyStart DateEnd Date Parmjit Wall MD [address] [place] [phone] PCP - GeneralFamily Medicine05/08/23Team MemberRelationshipSpecialtyStart DateEnd Date Parmjit Wall MD [address] [place] [phone] PCP - GeneralFamily Medicine05/08/23Team MemberRelationshipSpecialtyStart DateEnd Date Parmjit Wall MD [address] [place] [address] PCP - GeneralFamily Medicine05/08/23Team MemberRelationshipSpecialtyStart DateEnd Date Parmjit Wall MD [address] [place] [address] PCP - GeneralFamily Medicine05/08/23Team MemberRelationshipSpecialtyStart DateEnd Date Parmjit Wall MD [address] [place] [address] PCP - GeneralFamily Medicine05/08/23Team MemberRelationshipSpecialtyStart DateEnd Date Parmjit Wall MD [address] [place] [address] PCP - GeneralFamily Medicine05/08/23Team MemberRelationshipSpecialtyStart DateEnd Date Parmjit Wall MD [address] [place] [address] PCP - GeneralFamily Medicine05/08/23Team MemberRelationshipSpecialtyStart DateEnd Date Parmjit Wall MD [address] [place] [address] PCP - GeneralFamily Medicine05/08/23Team MemberRelationshipSpecialtyStart DateEnd Date Parmjit Wall MD [address] [place] [address] PCP - GeneralFamily Medicine05/08/23Team MemberRelationshipSpecialtyStart DateEnd Date Parmjit Wall MD [address] [place] [address] PCP - GeneralFamily Medicine05/08/23 Parmjit Wall MD [address] [place] [address] PCP - [place]01/13/24Team MemberRelationshipSpecialtyStart DateEnd Date Parmjit Wall MD [address] [place] [address] PCP - [facility]05/08/23 Parmjit aWll MD [address] [place] [address] PCP - [place]01/13/24Team MemberRelationshipSpecialtyStart DateEnd Date Parmjit Wall MD [address] [place] [address] [facility] Parmjit Wall MD [address] [place] [address] PCP - [place]01/13/24Team MemberRelationshipSpecialtyStart DateEnd Date Parmjit Wall MD [address] [place] [address] [facility]05/08/23Team MemberRelationshipSpecialtyStart DateEnd Date Parmjit Wall MD [address] [place] [address] PCP - GeneralFamily Medicine05/08/23Team MemberRelationshipSpecialtyStart DateEnd Date Parmjit Wall MD [address] [place] [address] PCP - GeneralFamily Medicine05/08/23Team MemberRelationshipSpecialtyStart DateEnd Date Parmjit Wall MD [address] [place] [address] PCP - GeneralFamily Medicine05/08/23Team MemberRelationshipSpecialtyStart DateEnd Date Parmjit Wall MD [address] [place] [address] PCP - GeneralFamily Medicine05/08/23Team MemberRelationshipSpecialtyStart DateEnd Date Parmjit Wall MD [address] [place] [address] PCP - GeneralFamily Medicine05/08/23Team MemberRelationshipSpecialtyStart DateEnd Date Parmjit Wall MD [address] [place] [address] PCP - GeneralFamily Medicine05/08/23Team MemberRelationshipSpecialtyStart DateEnd Date Parmjit Wall MD [address] [place] [address] PCP - GeneralFamily Medicine05/08/23Team MemberRelationshipSpecialtyStart DateEnd Date Parmjit Wall MD [address] [place] [address] PCP - Generalmily Medicine05/08/23Team MemberRelationshipSpecialtyStart DateEnd Date Parmjit Wall MD [address] [place] [address] PCP - Generalmily Medicine05/08/23Team MemberRelationshipSpecialtyStart DateEnd Date Parmjit Wall MD [address] [place] [address] PCP - Generalmily Medicine05/08/23Team MemberRelationshipSpecialtyStart DateEnd Date Parmjit Wall MD [address] [place] [address] PCP - GeneralFamily Medicine09/09/24Team MemberRelationshipSpecialtyStart DateEnd Date Parmjit Wall MD [address] [place] [address] PCP - GeneralFamily Medicine05/08/23 Team Status: Active Member Role/Relationship Status Dates PHYSICIAN NO FAMILY Primary Care Provider Active Team Status: Inactive Member Role/Relationship Status Dates PHYSICIAN NO FAMILY Primary Care Provider Active Start: December 04, 2024 End: December 04, 2024Arik Maravillaending ProviderActiveStart: December 04, 2024 End: December 04, 2024 Goals (unrecognized section and content) Goals may be documented in a n alternate section INFORMATION SOURCE (unrecogn ized section and content) DATE CREATED AUTHOR 12/30/2021 [facility] DATE CREATED AUTHOR AUTHOR'S ORGANSAM ATION 01/14/[address] [facility] DATE CREATED AUTHOR AUTHOR'S ORGANIZ ATION 10/26/2024 [facility] EPIC FOR RECORDS PERTAINING TO PATIENTS [...] BE BASED ON THE PRIMARY CLINICAL RECORDS. [facility]. provides no warranty or guarantee of the accuracy or completeness of information in this document.
--- OUTSIDE RECORDS SUMMARY | 2024-12-05 10:44 | XMS_ITS | Clinical Summary ---
Author Organization [facility] Address [address] [place] [address] Care Team Providers Care Scoop Filler Name Role Phone Unavailable Primary Care Provider Unavailabl e Social History Tobacco UseTypesPacks/DayYears UsedDateSmoking Tobacco: Never Assessed CommentsUnknownSex and Gender InformationValueDate RecordedSex Assigned at Not on fileLegal LqsZetnzv83/27/2025 12:23 PM EDTGender IdentityNot on file Sexual OrientationNot on file Plan of Treatment Not on file Insurance
--- OUTSIDE RECORDS SUMMARY | 2024-12-05 10:44 | XMS_ITS | Clinical Summary ---
Author Organization [facility] Address [address] [place] [address] Care Team Providers Care Phone Screener Name Role Phone Parmjit Khan MD Primary Care Provider [phone] Allergies No known active allergies Medications MedicationSigDispense QuantityRefillsLast FilledStart DateEnd DateStatus simvastatin 40 MG tablet Take 1 tablet by mouth Every night.5Active Multiple Vitamin (Multivitamin Adult) tablet Take by mouth daily.Active Loratadine 10 MG tablet Take 1 tablet by mouth daily. at the same time each dayActive escitalopram 20 MG tablet Take 1 tablet by mouth daily.5Active buPROPion 300 MG tablet XL Take 1 tablet by mouth daily.5Active Aspirin [address] tablet daily. at the same time each dayActive Encounters DateTypeDepartmentCare JfaaLuevpssnuqb59/05/2025Telephone [facility] Endocrinology [address] [phone] Sarika Gaitan Yfhwmzufk16/27/2025Telephone [facility] Central Scheduling [address] [place] [phone] Joaquin Rosales MD Pbmxzpfww36/19/2025 10:45 AM EDTOffice Visit [facility] Plastic Surgery [address] [address] Joaquin Rosales MD Macromastia (Primary Dx); Thoracic spine painfrom Last 3 Months Social History Tobacco UseTypesPacks/DayYears UsedDateSmoking Tobacco: Never Assessed CommentsUnknownSex and Gender InformationValueDate RecordedSex Assigned at Not on fileLegal CdaEoyhkg21/29/2025 7:57 AM EDTGender IdentityNot on fileSexual OrientationNot on file Last Filed Vital Signs Vital SignReadingTime TakenCommentsBlood Pressure--Pulse--Temperature-- Respiratory Rate--Oxygen Saturation--Inhaled Oxygen Concentration--Ufpmzf27 kg (169 lb 12.8 oz)09/30/2024 10:51 AM NLLLyfkgd744.6 cm (5' 6 )09/30/2024 10:51 AM EDTBody Mass Index27.41009/30/2024 10:51 AM EDT Plan of Treatment Health MaintenanceDue DateLast DoneCommentsDEXA SCAN NQECNAYNAK55/29/1956 HEPATITIS C VIRUS DBFCNMMCT15/29/1955TDAP (ADULT)1973CERVICAL CANCER SCREENING MICKKYBUNM24/29/1976LIPID IJOQWFVRO91/29/1995COLORECTAL CANCER SCREENING AWWNTZNTNR24/29/2000MAMMOGRAM SCREENING NVRDEMESLB16 ZOSTER (SHINGLES) VACCINE (3 of 3)/, 02/10/2015COVID-19 VACCINE ( season)/, 08/30/2021, 12/02/2020, Additional history existsINFLUENZA VACCINE (#1)/, 11/28/2022, 11/20/2021, Additional history existsRSV VACCINE (1 - 1-dose 75+ series) 07/10/20299494JWWRDTV86/11/203409/4PNEUMOCOCCAL VACCINE SERIESCompleted 11/09/2022, 02/12/2006HEP B VACCINEAged OutNo longer eligible based on patient's age to complete this topic Insurance * Guarantor: Dashawn NelsonAccount TypeRelation to PatientDate of BirthPhone Billing AddressPersonal/FdbhkvAgdv48/29/1956 [facility] [place] [address] Care Teams Team MemberRelationshipSpecialtyStart DateEnd Date Parmjit Khan MD [address] [place] [address] PCP - GeneralFamily Medicine09/09/24
--- OUTSIDE RECORDS SUMMARY | 2024-12-05 10:44 | XMS_ITS | Clinical Summary ---
Author Organization [employer] s tem Address [facility] [id number] [address] [place] [address] Care Team Providers Care Extract Operator Name Role Phone Parmjit Khan MD Primary Care Provider [phone] Allergies No known active allergies Medications MedicationSigDispense QuantityRefillsLast FilledStart DateEnd DateStatus buPROPion XL (WELLBUTRIN XL) 300 mg 24 hr tablet Take 300 mg by mouth daily.12/28/2019Active simvastatin (ZOCOR) 40 mg tablet Take 40 mg by mouth daily.12/26/2019Active escitalopram (LEXAPRO) 20 mg tablet Take 20 mg by mouth daily.01/30/2020Active Active Problems No known active problems Family History RelationNameStatusCommentsBrotherAliveFatherDeceasedMotherDeceasedSisterAlive Social History Tobacco UseTypesPacks/DayYears UsedDateSmoking Tobacco: FormerCigarettesQuit: 02/13/2004Smokeless Tobacco: NeverAlcohol UseStandard Drinks/WeekCommentsYes0 (1 standard drink = 0.6 oz pure alcohol)sociallyChildcareAnswerDate Recorded KqqokxzzhBwgsiof87/12/2019EmploymentAnswerDate RecordedEmploymentUnknown 07/24/2018Purpose - LifeAnswerDate RecordedPurpose and direction in lifeUnknown 1CommentsUnknownSex and Gender InformationValueDate RecordedSex Assigned at BirthNot on fileLegal ZkkQewynx97/06/2015 11:29 AM EDTGender IdentityNot on fileSexual OrientationNot on file Last Filed Vital Signs Vital SignReadingTime TakenCommentsBlood Yqkcoolp870/9702/16/2020 8:15 AM EST Pqsuc467302/16/2020 8:15 AM ZPVXwswyaeajju78.3 ??C (97.3 ??F)02/16/2020 6:26 AM ESTRespiratory Lxnl966902/16/2020 6:26 AM ESTOxygen Mhkwythtrl75%02/16/2020 8:15 AM ESTInhaled Oxygen Concentration--Bwqkgj01.9 kg (196 lb)02/16/2020 6:26 AM EST Sqobqp242.2 cm (5' 7 )02/16/2020 6:26 AM ESTBody Mass Index30.7002/16/2020 6:26 AM EST Plan of Treatment Health MaintenanceDue DateLast DoneCommentsDepression Jfrimqpqm48/29/1967Tobacco Swgfpohzo62/29/1967Adult BMI Cgslemzwm37/29/1973DTaP,Tdap and Td Vaccines (1 - Tdap)1973Zoster (Shingles) Vaccine (2 of 3)Fall Risk Gqgvwdyvo37/29/2020Influenza Bgbocyf24/01/43015411/07/20168421Lqzcygieouq22/04/2031 02/16/2020, 02/16/2020 Medical Devices Not on file Procedures Procedure NamePriorityDate/TimeAssociated DiagnosisCommentsPROVATION COLONOSCOPY Brjtbrs6802/16/2020 6:21 AM EST from Last 3 Months or Most Recently Relevant to Health Maintenance Results * ES colonoscopy imaging (02/16/2020 6:21 AM EST)Specimen (Source)Anatomical Location / LateralityCollection Method / VolumeCollection TimeReceived Time Narrative SYSTEMGENERATED, DOCUMENTATION - 02/16/2020 6:21 AM EST This order has been auto-finalized for image and report archival. *See procedures tab in Epic or report included with PACS images for full interpretation.* Authorizing ProviderResult TypeResult StatusMichael E Grillis DOIMG OR IMG ORDERABLESFinal Result from Last 3 Months or Most Recently Relevant to Health Maintenance Insurance * Guarantor: Tanvi Newby TypeRelation to PatientDate of BirthPhone Billing AddressPersonal/OzhpnoDdmo41/29/1956 [facility] [place] [address] Care Teams Team MemberRelationshipSpecialtyStart DateEnd Date Parmjit Khan MD PCP - GeneralFamily Jfzaamgl35/21/20
--- OUTSIDE RECORDS SUMMARY | 2024-12-05 10:44 | XMS_ITS | Clinical Summary ---
Author Organization [facility] Address [address] [facility] [place] [address] Care Team Providers Care Channel Executive Name Role Phone Parmjit Khan MD Primary Care Provider [phone] Allergies No known active allergies Medications MedicationSigDispense QuantityRefillsLast FilledStart DateEnd DateStatus aspirin 81 MG EC tablet 1 (one) time each day at the same timeActive loratadine (Claritin) 10 MG tablet 1 (one) time each day at the same timeActive Multiple Vitamin (Multivitamin Adult) tablet OrallyActive buPROPion XL (Wellbutrin XL) 300 MG 24 hr tablet Indications:Major depressive disorder, recurrent episode, mildTake 1 tablet (300 mg) by mouth Daily 90 tablet 5Active escitalopram (Lexapro) 20 MG tablet Indications:Major depressive disorder, recurrent episode, mildTake 1 tablet (20 mg) by mouth Daily 90 tablet 5Active simvastatin (Zocor) 40 MG tablet Indications:DyslipidemiaTake 1 tablet (40 mg) by mouth at bedtime 90 tablet 5Active buPROPion XL (Wellbutrin XL) 150 MG 24 hr tablet Indications:Major depressive disorder, recurrent episode, mildTake 1 tablet (150 mg) by mouth in the morning. Do not crush, chew, or split. 90 tablet 5Active Active Problems ProblemNoted DateDiagnosed DbhvCobvbyncfha16/25/2025 Assessment & Plan (09/05/2024 12:42 PM EDT): Large breasts and causing pain and poor posture. Refer to plastic surgeon for evaluation. Neck pain07/29/2024 Assessment & Plan (09/05/2024 12:42 PM EDT): Feels like being pulled forward and frequent pain. No change with PT and refer to plastic surgeon. Medicare annual wellness visit, lnnwucpjwc09/22/2024 Assessment & Plan (12/04/2023 9:59 AM EDT): Due for labs. Discussed proper diet and regular aerobic exercise. Need aerobic exercise 5-6 days a week for 30 minutes at a time. Smaller portions and limit total calories. Colonoscopy every 10 years. Tetanus every 10 years. Advised not to smoke. Discussed daily Aspirin therapy. Encounter for long-term (current) use of dzwbbtrnatu69/22/2024Overweight (BMI 25.0-29.9)12/04/2023 Assessment & Plan (07/14/2024 10:02 AM EDT): Weight down 8 pounds. Assessment & Plan (03/12/2024 9:55 AM EST): Patient doing well with adipex and lost [...] develop new or worsening symptoms contact office. Assessment & Plan (01/09/2024 9:47 AM EST): Patient doing well with adipex and lost [...] new or worsening sympt oms contact office. Assessment & Plan (12/04/2023 9:59 AM EDT): Patient overweight and difficult time losing weight. [...] month. OARRS reviewed. Continue medications as prescribed. Bilateral hearing loss01/31/2023DD (degenerative disc disease), lumbar 01/31/2023 Assessment & Plan (10/29/2023 9:59 AM EDT): Pain stable and use OTC PRN. Increase activity and walk regularly. Assessment & Plan (08/01/2023 8:15 AM EDT): Pain stable and use OTC PRN. Increase activity and walk regularly. Assessment & Plan (05/08/2023 9:56 AM EDT): Pain stable and use OTC PRN. Increase activity and walk regularly. Assessment & Plan (01/31/2023 12:19 PM EST): Pain stable and use OTC PRN. Increase activity and walk regularly. Dknylojjxxiq16/20/2023astroesophageal reflux qydnesu1601/31/2023 Assessment & Plan (08/01/2023 8:16 AM EDT): No symptoms and monitor. Use OTC PRN. Assessment & Plan (05/08/2023 9:56 AM EDT): Symptoms controlled with OTC and continue. Major depressive disorder, recurrent episode, mild01/31/2023 Assessment & Plan (07/14/2024 10:02 AM EDT): Symptoms controlled with medication and continue. Assessment & Plan (03/12/2024 9:55 AM EST): Symptoms controlled with medication and continue. Assessment & Plan (01/09/2024 9:46 AM EST): Symptoms controlled with medication and continue. Assessment & Plan (10/29/2023 9:59 AM EDT): Symptoms controlled with medication and continue. Assessment & Plan (08/01/2023 8:16 AM EDT): Symptoms controlled with medication and continue. Assessment & Plan (05/08/2023 9:56 AM EDT): Symptoms controlled with medication and continue. Assessment & Plan (01/31/2023 12:19 PM EST): Symptoms controlled with medication and continue. Hsbnjoczrwr89/20/2023 Assessment & Plan (07/14/2024 10:02 AM EDT): Repeat labs next visit. Trochanteric bursitis of left hip01/31/2023Seasonal allergic rhinitis due to obpbgs2501/31/2023 Assessment & Plan (10/29/2023 9:59 AM EDT): Symptoms controlled with medication and continue. Assessment & Plan (08/01/2023 8:16 AM EDT): Symptoms controlled with medication and continue. Assessment & Plan (05/08/2023 9:56 AM EDT): Symptoms controlled with medication and continue. Assessment & Plan (01/31/2023 12:19 PM EST): Symptoms controlled with medication and continue. Resolved Problems ProblemNoted DateDiagnosed DateResolved BvxfFofiikephbyn38 Assessment & Plan (11/27/2023 12:01 PM EDT): Appears to have enlarged salivary gland and tenderness. Treat with augmentin. Use warm compresses PRN and try sour candy. If no improvement will need US. Plantar bndwqrsce04 Encounters DateTypeDepartmentCare GilgYbnmqifmczk97/11/2025 1:30 PM EDTOffice Visit [facility] [address] [place] [phone] Rory Kilgore, DPM Capsulitis of metatarsophalangeal (MTP) joint of left foot (Primary Dx); Hallux varus (acquired), left foot10/23/20245493Uansnu94/30/2025Telephone [facility] [address] [place] [address] Parmjit Khan MD 09/05/2024 11:00 AM EDTOffice Visit [facility] [address] [place] [address] Parmjit Khan MD Neck pain (Primary Dx); Fgcwtdtaoxj93/25/2025amboo flowsheet [facility] [address] [place] [address] Parmjit Khan MD from Last 3 Months Family History Medical HistoryRelationNameCommentsDepressionDaughterDiabetesFatherMyocardial InfarctFatherDiabetesMotherHypertensionMotherMental illnessMotherStrokeMotherCVA CancerOtherSpousePancreatic cancerSister 1DiabetesSister 2ObesitySister 2Joint replacementSister 3following knee injuries -2 sistersMental illnessSister 3 RelationNameStatusCommentsDaughterAliveFatherDeceasedMaternal Grandfather DeceasedMaternal GrandmotherDeceasedMotherDeceasedOtherSpouseAlivePaternal GrandfatherDeceasedPaternal GrandmotherDeceasedSister 1DeceasedSister 2Sister 3 SonAlive Social History Tobacco UseTypesPacks/DayYears UsedDateSmoking Tobacco: FormerCigarettesQuit: 08/31/2010Smokeless Tobacco: Never Tobacco Cessation:Counseling Given: Yes Comments:Last smoked : > 10 years Alcohol UseStandard Drinks/WeekCommentsYes1 (1 standard drink = 0.6 oz pure alcohol)caffeine: 2 coffee, 1 diet; 2-3 cups per [id number] Health LiteracyAnswer Date RecordedHow often do you need to have someone help you when you read instructions, pamphlets, or other written material from your doctor or pharmacy? Never07/13/2024Humiliation, Afraid, Rape, and Kick questionnaireAnswerDate RecordedWithin the last year, have you been afraid of your partner or ex-partner?No07/13/2024Within the last year, have you been humiliated or emotionally abused in other ways by your partner or ex-partner?No07/13/2024 Within the last year, have you been kicked, hit, slapped, or otherwise physically hurt by your partner or ex-partner?No07/13/2024Within the last year, have you been raped or forced to have any kind of sexual activity by your part ner or ex-partner?No07/13/2024Social Connection and Isolation PanelAnswerDate RecordedIn a typical week, how many times do you talk on the phone with family, friends, or neighbors?More than three times a week07/13/2024How often do you get together with friends or relatives?Twice a week07/13/2024How often do you attend sabianism or yazidism services?More than 4 times per year07/13/2024Do you belong to any clubs or organizations such as sabianism groups, unions, fraternal or athletic groups, or school groups?No07/13/2024How often do you attend meetings of the clubs or organizations you belong to?Never07/13/2024re you , , , , never , or living with a partner? 07/13/2024UDIT-CAnswerDate RecordedQ1: How often do you have a drink containing alcohol?2-3 times a week07/13/2024Q2: How many drinks containing alcohol do you have on a typical day when you are drinking?1 or Q3: How often do you have six or more drinks on one occasion?Never07/13/2024Overall Financial Resource Strain (CARDIA)AnswerDate RecordedHow hard is it for you to pay for the very basics like food, housing, medical care, and heating?Not very hard 07/13/2024PHQ-2AnswerDate RecordedPatient Health Questionnaire-2 Score0 12/04/2023[facility] - Occupational Stress QuestionnaireAnswerDate RecordedDo you feel stress - tense, restless, nervous, or anxious, or unable to sleep at night because yourmind is troubled all the time - these days?Only a kwxvid8107/13/2024Exercise Vital SignAnswerDate Recorded On average, how many days per week do you engage in moderate to strenuous exercise (like a brisk walk)?4 days07/13/2024On average, how many minutes do you engage in exercise at this level?40 min07/13/2024Hunger Vital SignAnswerDate RecordedWithin the past 12 months, you worried that your food would run out before you got the money to buymore.Never true07/13/2024Within the past 12 months, the food you bought just didn't last and you didn't have money to get more.Never true07/13/2024PRAPARE - TransportationAnswerDate RecordedIn the past 12 months, has lack of transportation kept you from medical appointments or from getting medications?No07/13/2024In the past 12 months, has lack of transportation kept you from meetings, work, or from getting things needed for daily living?No07/13/2024Housing Stability Vital SignAnswerDate RecordedIn the last 12 months, was there a time when you were not able to pay the mortgage or rent on time?No05/07/2023In the last 12 months, how many places have you lived?1 05/07/2023In the last 12 months, was there a time when you did not have a steady place to sleep or slept in nadeauelter (including now)?No05/07/2023Housing Stability Vital SignAnswerDate RecordedIn the last 12 months, was there a time when you were not able to pay the mortgage or rent on time?No07/13/2024In the past 12 months, how many times have you moved where you were living? At any time in the past 12 months, were you homeless or living in a custodial (including now)?No07/13/2024CommentsUnknownSex and Gender Information ValueDate RecordedSex Assigned at BirthNot on fileLegal HfyHncxnw45/15/2023 7:37 PM EDTGender IdentityNot on fileSexual OrientationNot on file Last Filed Vital Signs Vital SignReadingTime TakenCommentsBlood Slrngsoo006/6807 11:14 AM EDT Zamqp6140 11:14 AM XOLBpvmdojjojn50.3 ??C (95.5 ??F)09/05/2024 11:14 AM EDTRespiratory Avdq8696 1:23 PM EDTOxygen Zrffjjjewh19%09/05/2024 11:14 AM EDTInhaled Oxygen Concentration--Yuircf95.8 kg (165 lb)10/23/2024 1:23 PM EDT Zeijsb207.6 cm (5' 6 )10/23/2024 1:23 PM EDTBody Mass Index26.6309 1:23 PM EDT Plan of Treatment DateTypeDepartmentCare Team (Latest Contact Info)Tmjnzhsadnt39/16/2025 8:30 AM ESTOffice Visit [facility] [address] [place] [address] Sonja Jesus APRN-HAIR SAMPLE MATCHER [address] [place] [address] Health MaintenanceDue DateLast DoneCommentsCT Osnkytxwikti73/29/1956FIT-DNA 1955FIT1955FOBT1955 6966Awkjkqcmgzwwf95/29/1956Influenza Vaccine (#1), 11/28/2022, 11/20/2021, Additional history exists Akrzhrflr31, 11/23/2022, 07/11/2016, Additional history exists Jgmgfqkjnye31, 02/16/2020olorectal Cancer Rmdiacpnx10/04/2031 Pneumococcal Vaccine: 65+ RncjrGtyfbrylw98/28/2023, 02/12/2006 Goals GoalPatient Goal TypeAssociated ProblemsRecent ProgressPatient-Stated?Author Help patient manage antidepressant medication Care PlanPatient on antidepressant monitoring Emi De La Paz Baseline PHQ-9 Care PlanBaseline PHQ-9Emi [place] Procedures Procedure NamePriorityDate/TimeAssociated DiagnosisCommentsMM TOMOSYNTHESIS SCREENING BI12/03/2023 12:07 PM EDT from Last 3 Months or Most Recently Relevant to Health Maintenance Results * MM TOMOSYNTHESIS SCREENING BI (12/03/2023 12:07 PM EDT)Anatomical Region LateralityModalityOtherSpecimen (Source)Anatomical Location / Laterality Collection Method / VolumeCollection TimeReceived Time12/03/2023 12:07 PM EDT Narrative 12/03/2023 12:08 PM EDT [facility] ?[address] ? [place] [address] ? Mammography Report ? Signed ? Patient: Dashawn Nelson ?MR#: [id number] ?? : 1955 ?Acct:[id number] ?? Age/Sex: 68 / F ?ADM Date: 12/03/23 ?? Loc: MAMMO ? Attending Dr: Parmjit Khan M.D. ? Ordering Physician: Parmjit Khan M.D. ?Results: ? Date of Service: 12/02/ ?Follow Up: ? Procedure(s): MM tomosynthesis screening BI ?? Accession Number(s): [id number] ? cc: Parmjit Khan M.D. ? Patient Name: ? DASHAWN NELSON ? MR#: [id number] ? : 1955 ? Exam Date: 12/03/2023 ?? Ordering Doctor: DR Parmjit Khan . ? RADIOLOGY REPORT ? PROCEDURE: ? MM TOMOSYNTHESIS SCREENING BI ? COMPARISON: ? MG MAMM SCREEN 3D CELINA CAD, 11/22/2021. ??MM TOMOSYNTHESIS ?? SCREENING BI, 11/23/2022. ? INDICATIONS: ? Screening ? Calculator Name ? NCI Breast Cancer Risk Assessment Tool ?? 5 Year Breast Cancer Risk ? 1.40% ?? Lifetime Breast Cancer Risk ? 4.30% ?? Personal Breast Cancer ?No ?? Personal Ovarian Cancer ? No ?? Treatments ? None ?? Family Cancers ? Sister with pancreatic cancer at age 74. ? LOCATION: ? [facility] ? BREAST COMPOSITION: ? The breasts are heterogeneously dense,which may ?? obscure small masses. ? FINDINGS: ? DIAGNOSTIC CATEGORY 1--NEGATIVE. NO CHANGE FROM COMPARISON ASSESSMENT. ? Scattered benign-appearing calcifications are present. ??Scattered ?? benign-appearing lymph nodes are present. ? RIGHT BREAST: ??No significant suspicious finding. ? LEFT BREAST: ??No significant suspicious finding. ? RECOMMENDATIONS: ? ROUTINE MAMMOGRAM AND CLINICAL EVALUATION IN 12 MONTHS. ? PLEASE NOTE: ??A NORMAL MAMMOGRAM DOES NOT EXCLUDE THE POSSIBILITY OF BREAST ?? CANCER. ??A CLINICALLY SUSPICIOUS PALPABLE LUMP SHOULD BE BIOPSIED. ? Dictated by: Tiburcio Tejeda MD on 12/03/2023 at 12:05 ? Approved by: Tiburcio Tejeda MD on 12/03/2023 at 12:07 ? Dictated By: ?Tiburcio Tejeda M.D. ? Signed By: ?12/03/23 1208 ? DD/ 1207 ? TD/TT: ? Pottery Decoration Designer: Procedure Note Radiology, Radiologist, - 12/03/[address] [address] Mammography Report Signed Patient: Dashawn Nelson JMR#: [id number] : 5Acct:[id number] Age/Sex: 68 / FADM Date: 12/03/23 Loc: MAMMO Attending Dr: Parmjit Khan M.D. Ordering Physician: Parmjit Khan M.D.Results: Date of Service: 12/03/23Follow Up: Procedure(s): MM tomosynthesis screening BI Accession Number(s): [id number] cc: Parmjit Khan M.D. Patient Name: DASHAWN NELSON MR#: [id number] : 1955 Exam Date: 12/03/2023 Ordering Doctor: DR Parmjit Maloney RADIOLOGY REPORT PROCEDURE: MM TOMOSYNTHESIS SCREENING BI COMPARISON: MG MAMM SCREEN 3D CELINA CAD, 11/22/2021. MM TOMOSYNTHESIS SCREENING BI, 11/23/2022. INDICATIONS: Screening Calculator Name NCI Breast Cancer Risk Assessment Tool 5 Year Breast Cancer Risk 1.40% Lifetime Breast Cancer Risk 4.30% Personal Breast Cancer No Personal Ovarian Cancer No Treatments None Family Cancers Sister with pancreatic cancer at age 74. LOCATION: [facility] BREAST COMPOSITION: The breasts are heterogeneously dense,which may obscure small masses. FINDINGS: DIAGNOSTIC CATEGORY 1--NEGATIVE. NO CHANGE FROM COMPARISON ASSESSMENT. Scattered benign-appearing calcifications are present. Scattered benign-appearing lymph nodes are present. RIGHT BREAST: No significant suspicious finding. LEFT BREAST: No significant suspicious finding. RECOMMENDATIONS: ROUTINE MAMMOGRAM AND CLINICAL EVALUATION IN 12 MONTHS. PLEASE NOTE: A NORMAL MAMMOGRAM DOES NOT EXCLUDE THE POSSIBILITY OFBREAST CANCER. A CLINICALLY SUSPICIOUS PALPABLE LUMP SHOULD BE BIOPSIED. Dictated by: Tiburcio Tejeda MD on 12/03/2023 at 12:05 Approved by: Tiburcio Tejeda MD on 12/03/2023 at 12:07 Dictated By: Tiburcio Tejeda M.D. Signed By:12/03/23 1208 DD/ 1207 TD/TT: Pottery Decoration Designer: Authorizing ProviderResult TypeResult StatusMarc Naderer MDCLINISYNC IMAGING Final Result from Last 3 Months or Most Recently Relevant to Health Maintenance Additional Health Concerns Active ProblemsNoted DateDiagnosed DatePatient on antidepressant monitoring plan 5Baseline PHQ-9005/14/2024 Insurance * Guarantor: Dashawn Nelson TypeRelation to PatientDate of BirthPhone Billing AddressPersonal/PqqbcrQjef37/29/1956 [facility] [address] Care Teams Team MemberRelationshipSpecialtyStart DateEnd Date Parmjit Khan MD [address] [place] [phone] PCP - GeneralFamily Medicine05/08/23
--- NOTE | 2024-12-05 10:49 | MM_ITS ---
Patient Name: DASHAWN NELSON MR#: [id number] : 1955 Exam Date: 12/05/2024 Ordering Doctor: DR IVET WALL . RADIOLOGY REPORT PROCEDURE: MM TOMOSYNTHESIS SCREENING BI COMPARISON: MM TOMOSYNTHESIS SCREENING BI, 12/03/2023. MM TOMOSYNTHESIS SCREENING BI, 11/23/2022. MG MAMM SCREEN 3D CELINA CAD, 11/22/2021. MG MAMM SCREEN CELINA W CAD, 06/16/2015. INDICATIONS: screening Calculator Name NCI Breast Cancer Risk Assessment Tool 5 Year Breast Cancer Risk 1.40% Lifetime Breast Cancer Risk 4.10% Personal Breast Cancer No Personal Ovarian Cancer No Treatments None Family Cancers Sister with pancreatic cancer at age 74. LOCATION: The [facility] BREAST COMPOSITION: The breasts are heterogeneously dense, which may obscure small masses. FINDINGS: RIGHT BREAST: No significant suspicious finding. LEFT BREAST: No significant suspicious finding. Benign-appearing calcifications are present . DIAGNOSTIC CATEGORY 2--BENIGN FINDING. NO CHANGE FROM COMPARISON. RECOMMENDATIONS: ROUTINE MAMMOGRAM AND CLINICAL EVALUATION IN 12 MONTHS. Dictated by: Jose Castro MD on 12/05/2024 at 14:13 Approved by: Jose Castro MD on 12/05/2024 at 14:30
== END 2024-12-05 10:40 | disposition home or self-care (01) ==
LOC: MAMMO 10:40
PROVIDERS: PCP Family Medicine; Visit Provider Family Medicine
DX: Z12.31 Encounter for screening mammogram for malignant neoplasm of breast (principal); Z80.8 Family history of malignant neoplasm of other organs or systems
CPT/HCPCS: 77063; 77067

== ENCOUNTER 2024-12-15 12:10 | Emergency (ER) | payer MEDICARE, SELFPAY ==
--- OUTSIDE RECORDS SUMMARY | 2024-12-15 12:18 | XMS_ITS | Encounter Summary ---
Author Organization [facility] Address [address] [place] [address] Care Team Providers Care Commercial Account Officer Name Role Phone Parmjit Khan MD Primary Care Provider [phone] Parmjit Khan MD Unavailable Encounter Details DateTypeDepartmentCare Team (Latest Contact Info)Hrkwiibtvww88/21/2024Clinisync Result Encounter [facility] Unsolicited Parmjit Khan MD [address] [place] [phone] Social History Tobacco UseTypesPacks/DayYears UsedDateSmoking Tobacco: FormerCigarettesQuit: 08/31/2010Smokeless Tobacco: Never Comments:Last smoked : > 10 years Alcohol UseStandard Drinks/WeekCommentsYes1 (1 standard drink = 0.6 oz pure alcohol)caffeine: 2 coffee, 1 diet; 2-3 cups per [id number] Health LiteracyAnswer Date RecordedHow often do you [...] relatives?Twice a week07/13/2024How often do you attend rastafari or judaism services?More than 4 times per year07/13/2024Do you belong to any clubs or organizations such as rastafari groups, unions, fraLumora or athletic groups, or school groups?No07/13/2024How often [...] very hard 07/13/2024PHQ-2AnswerDate RecordedPatient Health Questionnaire-2 Score0 12/04/2023[facility] - Occupational Stress QuestionnaireAnswerDate RecordedDo you feel stress - tense, restless, nervous, or anxious, or unable to sleep at night because yourmind is troubled all the time - these days?Only a yfqiwj4707/13/2024Exercise Vital SignAnswerDate Recorded On average, how many [...] steady place to sleep or slept in [facility] (including now)?No05/07/2023Housing Stability Vital SignAnswerDate RecordedIn the last 12 months, was there a time when you were not able to pay the mortgage or rent on time?No07/13/2024In the past 12 months, how many times have you moved where you were living? At any time in the past 12 months, were you homeless or living in a skilled nursing (including now)?07/13/2024CommentsUnknownSex and Gender Information ValueDate RecordedSex Assigned at BirthNot on fileLegal XrkEnrqat52/15/2023 7:37 PM EDTGender IdentityNot on fileSexual OrientationNot on filedocumented as of this encounter Functional Status * AUDIT-C ScoreAnswerDate of PnxgsaxjqyEywecv929/01/2025 9:45 AM Doreen Olvera * Q1: How often do you have a drink containing alcohol?AnswerDate of Assessment Author2-3 times a week07/13/2024 9:45 AM Wade Generic * Q2: How many drinks containing alcohol do you have on a typical day when you are drinking?AnswerDate of AssessmentAuthor1 or 9:45 AM EDT Mychart, Generic * Q3: How often do you have six or more drinks on one occasion?AnswerDate of DnkrqsqyvqYzapzvMmtjk63/01/2025 9:45 AM EDTMychart, Generic * Over the past 2 weeks, how often have you been bothered by any of the following problems?QuestionAnswerDate of AssessmentAuthorLittle interest or pleasure in doing thingsNot at all12/04/2023 9:00 AM Julieta, KalpanaieFeeling down, depressed, or hopelessNot at all12/04/2023 9:00 AM Rain Rendon Patient Health Questionnaire-2 Zbbem692 9:00 AM Rain Rendon * QuestionAnswerDate of AssessmentAuthorTrouble falling or staying asleep, or sleeping too muchNot at all12/04/2023 9:00 AM Julieta, KalpanaieFeeling tired or having little energyNot at all12/04/2023 9:00 AM Julieta, KalpanaiePoor appetite or overeatingNot at all12/04/2023 9:00 AM Julieta, KalpanaieFeeling bad about yourself - or that you are a failure or have let yourself or your family downNot at all12/04/2023 9:00 AM Julieta, KalpanaieMoving or speaking so slowly that other people could have noticed? Or the opposite - being so fidgety or restless that you have been moving around a lot more than usual.Not at all12/04/2023 9:00 AM Rosaura Rendonhoughts that you would be better off or hurting yourself in some wayNot at all12/04/2023 9:00 AM Rain Braun documented as of this encounter Plan of Treatment DateTypeDepartmentCare Team (Latest Contact Info)Ffylzeseoig78/16/2025 8:30 AM ESTOffice Visit [facility] [address] [place] [address] Sonja Jesus, RECONSIGNMENT CLERK-STUNT PERFORMER [address] [place] [address] documented as of this encounter Procedures Procedure NamePriorityDate/TimeAssociated DiagnosisCommentsMM TOMOSYNTHESIS SCREENING BI12/03/2023 12:07 PM EDT documented in this encounter Results * MM TOMOSYNTHESIS SCREENING BI (12/03/2023 12:07 PM EDT)Anatomical Region LateralityModalityOtherSpecimen (Source)Anatomical Location / Laterality Collection Method / VolumeCollection TimeReceived Time12/03/2023 12:07 PM EDT Narrative 12/03/2023 12:08 PM EDT [facility] ?[address] ? [place] [address] ? Mammography Report ? Signed ? Patient: OdinDashawn J ?MR#: [id number] ?? : 1955 ?Acct:[id number] ?? Age/Sex: 68 / F ?ADM Date: 12/03/23 ?? Loc: MAMMO ? Attending Dr: Parmjit Khan M.D. ? Ordering Physician: Parmjit Khan M.D. ?Results: ? Date of Service: 12/03/23 ?Follow Up: ? Procedure(s): MM tomosynthesis screening BI ?? Accession Number(s): [id number] ? cc: Parmjit Khan M.D. ? Patient Name: ? DASHAWN NELSON ? MR#: [id number] ? : 1955 ? Exam Date: 12/03/2023 [...] at age 73. ? LOCATION: ? [facility] ? BREAST COMPOSITION: ? The breasts are [...] 1208 ? DD/ 1207 ? TD/TT: ? Data Power Consultant: Procedure Note Radiology, Radiologist, MD - 12/03/[address] [address] Mammography Report Signed Patient: Dashawn Nelson JMR#: [id number] : 5Acct:[id number] Age/Sex: 68 / FADM Date: 12/03/23 Loc: MAMMO Attending Dr: Parmjit Khan M.D. Ordering Physician: Parmjit Khan M.D.Results: Date of Service: 12/03/23Follow Up: Procedure(s): MM tomosynthesis screening BI Accession Number(s): [id number] cc: Parmjit Khan M.D. Patient Name: DASHAWN NELSON MR#: [id number] : 1955 Exam Date: 12/03/2023 Ordering Doctor: DR Parmjit Khan . RADIOLOGY REPORT PROCEDURE: MM TOMOSYNTHESIS SCREENING BI COMPARISON: MG MAMM SCREEN 3D CELINA CAD, 11/22/2021. MM TOMOSYNTHESIS SCREENING BI, 11/23/2022. INDICATIONS: Screening Calculator Name NCI Breast Cancer Risk Assessment Tool 5 Year Breast Cancer Risk 1.40% Lifetime Breast Cancer Risk 4.30% Personal Breast Cancer No Personal Ovarian Cancer No Treatments None Family Cancers Sister with pancreatic cancer at age 74. LOCATION: [facility] BREAST COMPOSITION: The breasts are heterogeneously dense,which [...] M.D. Signed By:12/03/23 1208 DD/ 1207 TD/TT: Data Power Consultant: Authorizing ProviderResult TypeResult StatusMarc Erin MDCLINISYNC IMAGING Final Result documented in this encounter Visit Diagnoses Not on filedocumented in this encounter Care Teams Team MemberRelationshipSpecialtyStart DateEnd Date Parmjit Khan MD [address] [place] [phone] [facility] - [facility] Parmjit Khan MD [address] [place] [address] PCP - Ck IN01/13/2412documented as of this encounter
--- OUTSIDE RECORDS SUMMARY | 2024-12-15 12:18 | XMS_ITS | Clinical Summary ---
Author Organization [facility] Address [address] [place] [address] Care Team Providers Care Manager It Security Name Role Phone Parmjit Khan MD Primary Care Provider [phone] Allergies No known active allergies Medications MedicationSigDispense [...] 90 tablet 5Active Active Problems ProblemNoted DateDiagnosed EcezEkjnihtsrjr97/25/2025 Assessment & Plan (09/05/2024 12:42 PM EDT): Large breasts and causing pain and poor posture. Refer to plastic surgeon for evaluation. Neck pain07/29/2024 Assessment & Plan (09/05/2024 12:42 PM EDT): Feels like being pulled forward and frequent pain. No change with PT and refer to plastic surgeon. Medicare annual wellness visit, ducxmhmpsw24/22/2024 Assessment & Plan (12/04/2023 9:59 AM EDT): Due for labs. Discussed proper diet and regular aerobic exercise. Need aerobic exercise 5-6 days a week for 30 minutes at a time. Smaller portions and limit total calories. Colonoscopy every 10 years. Tetanus every 10 years. Advised not to smoke. Discussed daily Aspirin therapy. Encounter for long-term (current) use of aolpsdoixym77/22/2024Overweight (BMI 25.0-29.9)12/04/2023 Assessment & Plan (07/14/2024 10:02 [...] OTC PRN. Increase activity and walk regularly. Azrsxhgctyav87/20/2023astroesophageal reflux ksvaqej9101/31/2023 Assessment & Plan (08/01/2023 8:16 AM EDT): [...] EST): Symptoms controlled with medication and continue. Agbfacukvtm97/20/2023 Assessment & Plan (07/14/2024 10:02 AM EDT): Repeat labs next visit. Trochanteric bursitis of left hip01/31/2023Seasonal allergic rhinitis due to lpcmmx8601/31/2023 Assessment & Plan (10/29/2023 9:59 AM EDT): Symptoms controlled with medication and continue. Assessment & Plan (08/01/2023 8:16 AM EDT): Symptoms controlled with medication and continue. Assessment & Plan (05/08/2023 9:56 AM EDT): Symptoms controlled with medication and continue. Assessment & Plan (01/31/2023 12:19 PM EST): Symptoms controlled with medication and continue. Resolved Problems ProblemNoted DateDiagnosed DateResolved YmnjRisienrozlai98 Assessment & Plan (11/27/2023 12:01 PM EDT): Appears to have enlarged salivary gland and tenderness. Treat with augmentin. Use warm compresses PRN and try sour candy. If no improvement will need US. Plantar xzebbpiip88 Encounters DateTypeDepartmentCare RfvpKwnvuyoqevg62/11/2025 1:30 PM EDTOffice Visit [facility] [address] [place] [phone] Rory Kilgore, SANDOR Capsulitis of metatarsophalangeal (MTP) joint of left foot (Primary Dx); Hallux varus (acquired), left foot10/23/2024Travelfrom Last 3 Months Family History Medical HistoryRelationNameCommentsDepressionDaughterDiabetesFatherMyocardial [...] 2 coffee, 1 diet; 2-3 cups per ojvL2528 Health LiteracyAnswer Date RecordedHow often do you [...] relatives?Twice a week07/13/2024How often do you attend samaritan or jain services?More than 4 times per year07/13/2024Do you belong to any clubs or organizations such as samaritan groups, unions, fraColumbia Property Managers or athletic groups, or school groups?No07/13/2024How often [...] very hard 07/13/2024PHQ-2AnswerDate RecordedPatient Health Questionnaire-2 Score0 12/04/2023[facility] [place] [facility] Occupational Health - Occupational Stress QuestionnaireAnswerDate RecordedDo you feel stress - tense, restless, nervous, or anxious, or unable to sleep at night because yourmind is troubled all the time - these days?Only a oylztp9107/13/2024Exercise Vital SignAnswerDate Recorded On average, how many [...] steady place to sleep or slept in [facility] (including now)?No05/07/2023Housing Stability Vital SignAnswerDate RecordedIn the last 12 months, was there a time when you were not able to pay the mortgage or rent on time?No07/13/2024In the past 12 months, how many times have you moved where you were living? At any time in the past 12 months, were you homeless or living in a fci (including now)?No07/13/2024CommentsUnknownSex and Gender Information ValueDate RecordedSex Assigned at BirthNot on fileLegal KogFijuye68/15/2023 7:37 PM EDTGender IdentityNot on fileSexual OrientationNot on file Last Filed Vital Signs Vital SignReadingTime TakenCommentsBlood Rietsxrq851/6807 11:14 AM EDT Cmqfl5720 11:14 AM SNWUcnbebwmmbv33.3 ??C (95.5 ??F)09/05/2024 11:14 AM EDTRespiratory Cezx248910/23/2024 1:23 PM EDTOxygen Jzktowidnc09%09/05/2024 11:14 AM EDTInhaled Oxygen Concentration--Zormnr05.8 kg (165 lb)10/23/2024 1:23 PM EDT Usoadj812.6 cm (5' 6 )10/23/2024 1:23 PM EDTBody Mass Index26.63010/23/2024 1:23 PM EDT Plan of Treatment DateTypeDepartmentCare Team (Latest Contact Info)Ennwxhizmmo34/16/2025 8:30 AM ESTOffice Visit [facility] [address] [place] [address] Sonja Jesus, CONSTRUCTION EQUIPMENT OPERATOR-BUILDING CONSTRUCTION CONTRACTOR [address] [place] [address] Health MaintenanceDue DateLast DoneCommentsCT Hvgqsbegrvea28/29/1956FIT-DNA 1955FIT1955FOBT1955 8490Nyehlnprsxqpl44/29/1956DTaP/Tdap/Td Vaccines (1 - Tdap)2COVID-19 Vaccine (5 - season)2024 08/30/2021, 12/02/2020, 04/22/2020, Additional history existsInfluenza Vaccine (#1), 11/28/2022, 11/20/2021, Additional history exists Bxkeqyqev49, 11/23/2022, 07/11/2016, Additional history exists Ymsgmlrwffz24, 02/16/2020olorectal Cancer Jdaoxmyay77/04/2031 Pneumococcal Vaccine: 65+ KgmstDtpyvympx20/28/2023, 02/12/2006HIB VaccinesAged OutNo longer eligible based on patient's age to complete this topicHPV Vaccines Aged OutNo longer eligible based on patient's age to complete this topic Hepatitis A VaccinesAged OutNo longer eligible based on patient's age to complete this topicHepatitis B VaccinesAged OutNo longer eligible based on patient's age to complete this topicIPV VaccinesAged OutNo longer eligible based on patient's age to complete this topicMeningococcal B VaccineAged OutNo longer eligible based on patient's age to complete this topicMeningococcal VaccineAged OutNo longer eligible based on patient's age to complete this topicRotavirus VaccinesAged OutNo longer eligible based on patient's age to complete this topic Goals GoalPatient Goal TypeAssociated ProblemsRecent ProgressPatient-Stated?Author Help patient manage antidepressant medication Care PlanPatient on antidepressant monitoring planEmi Menchaca Baseline PHQ-9 Care PlanBaseline PHQ-9Emi Menchaca Procedures Procedure NamePriorityDate/TimeAssociated DiagnosisCommentsMM TOMOSYNTHESIS SCREENING BI12/03/2023 12:07 PM EDT from Last 3 Months or Most Recently Relevant to Health Maintenance Results * MM TOMOSYNTHESIS SCREENING BI (12/03/2023 12:07 PM EDT)Anatomical Region LateralityModalityOtherSpecimen (Source)Anatomical Location / Laterality Collection Method / VolumeCollection TimeReceived Time12/03/2023 12:07 PM EDT Narrative 12/03/2023 12:08 PM EDT [facility] ?[address] ? [place] [address] ? Mammography Report ? Signed ? Patient: Dashawn Nelson J ?MR#: [id number] ?? : 1955 ?Acct:[id number] ?? Age/Sex: 68 / F ?ADM Date: 12/03/23 ?? Loc: MAMMO ? Attending Dr: Parmjit Khan M.D. ? Ordering Physician: Parmjit Khan M.D. ?Results: ? Date of Service: 12/03/23 ?Follow Up: ? Procedure(s): MM tomosynthesis screening BI ?? Accession Number(s): [id number] ? cc: Parmjit Khan M.D. ? Patient Name: ? DASHAWNDAGOBERTO NELSON ? MR#: [id number] ? : 1955 ? Exam Date: 12/03/2023 [...] at age 73. ? LOCATION: ? [facility] ? BREAST COMPOSITION: ? The breasts [...] at 12:07 ? Dictated By: ?Tiburcio Tejeda V Josh ? Signed By: ?12/03/238 ? DD/ 1207 ? TD/TT: ? Bundle Tier And Labeler: Procedure Note Radiology, Radiologist, - 12/03/2023 [place] [address] Mammography Report Signed Patient: Dashawn Nelson JMR#: [id number] : 5Acct:[id number] Age/Sex: 68 / FADM Date: 12/03/23 Loc: MAMMO Attending Dr: Parmjit Khan M.D. Ordering Physician: Parmjit Khan M.D.Results: Date of Service: 12/03/23Follow Up: Procedure(s): MM tomosynthesis screening BI Accession Number(s): [id number] cc: Parmjit Khan M.D. Patient Name: DASHAWN NELSON MR#: [id number] : 1955 Exam Date: 12/03/2023 Ordering Doctor: [...] pancreatic cancer at age 73. LOCATION: [facility] BREAST COMPOSITION: The breasts are heterogeneously [...] M.D. Signed By:12/03/23 1208 DD/ 1207 TD/TT: Bundle Tier And Labeler: Authorizing ProviderResult TypeResult StatusMarc Erin MDCLINISYNC IMAGING Final Result from Last 3 Months or Most Recently Relevant to Health Maintenance Additional Health Concerns Active ProblemsNoted DateDiagnosed DatePatient on antidepressant monitoring plan 5Baseline PHQ-9005/14/2024 Insurance Care Teams Team MemberRelationshipSpecialtyStart DateEnd Date Parmjit Khan MD [address] [place] [phone] PCP - GeneralFamily Medicine05/08/23
--- OUTSIDE RECORDS SUMMARY | 2024-12-15 12:18 | XMS_ITS | Clinical Summary ---
Author Organization [facility] Address [address], [address] [place] [address] Care Team Providers Care Plant Operator Name Role Phone Pedro Rudd MD Primary Care Provider Unav ailable Allergies No known active allergies Medications MedicationSigDispense QuantityRefillsLast FilledStart DateEnd DateStatus escitalopram (LEXAPRO) 10 MG tablet Active simvastatin (ZOCOR) 40 MG tablet Active ibuprofen (ADVIL;MOTRIN) 800 MG tablet TK 1 T PO ZZO271Active Active Problems No known active problems Family History Medical HistoryRelationNameCommentsOtherFatherchfStrokeMaternal Grandfather RelationNameStatusCommentsFatherMaternal Grandfather Social History Tobacco UseTypesPacks/DayYears UsedDateSmoking Tobacco: FormerAlcohol Use Standard Drinks/WeekCommentsYes0 (1 standard drink = 0.6 oz pure alcohol)occas CommentsNoSex and Gender InformationValueDate RecordedSex Assigned at BirthNot on fileLegal JazArbhdz35/10/2013 7:40 PM ESTGender IdentityNot on file Sexual OrientationNot on file Last Filed Vital Signs Vital SignReadingTime TakenCommentsBlood Zdsmlzsp338/80007/03/2016 9:21 AM EDT Pulse--Temperature--Respiratory Rate--Oxygen Saturation--Inhaled Oxygen Concentration--Afjamg79.4 kg (203 lb 9.6 oz)07/03/2016 9:21 AM PCSCditav324.2 cm (5' 7 )07/03/2016 9:21 AM EDTBody Mass Index31.8907/03/2016 9:21 AM EDT Plan of Treatment Not on file Insurance Care Teams Team MemberRelationshipSpecialtyStart DateEnd Date Pedro Rudd MD PCP - GeneralFanmly Medicine07/03/16
[2024-12-15 12:22] VITALS: BP 139/75; PULSE 74; TEMP 36.8; O2SAT 100; BMI 24.2
--- OUTSIDE RECORDS SUMMARY | 2024-12-15 12:26 | XMS_ITS | CCD ---
Author Organization [facility] Care Team Providers Care Bisque Ware Dipper Name Role Phone Jenny Long Unavailable DUKE, [...] NADERER, DR PARMJIT Wilson Primary Care Unavailable Berg[place], DR Dey Consulting Unavailable NADERER, DR PARMJIT Wilson Consulting Unavailable ALEJANDRA, DR GALVAN Admitting Unavailable ALEJANDRA, DR GALVAN Attending Unavailable NADERER, DR PARMJIT Wilson Primary Care Unavailable NATASHAEBSAVANAH, DR EARNESTINE Saldivar Consulting Unavailable ALEJANDRA, DR GALVAN Consulting Unavailable Mercedes, Jenny Attending Unavailable Mercedes, Jenny Admitting Unavailable NO FAMILY, PHYSICIAN Primary Care Unavailable Parmjit Wall MD Primary Care Provider Duke CHAVES, Parmjit Unavailable Parmjit Wall MD Primary Care Provider Duke CHAVES, Parmjit Primary Care Provider [phone] PARMJIT WALL Attending Unavailable SONJA JESUS Attending Unavailable SONJA JESUS Attending Unavailable NADEREYariel, PARMJIT Attending Unavailable JEANNETTE CAMERON Attending Unavailable NADERER, PARMJIT Referring Unavailable NADERER, PARMJIT Attending Unavailable NADERER, PARMJIT Attending Unavailable PARMJIT WALL Attending Unavailable PARMJIT WALL Attending Unavailable PARMJIT WALL Attending Unavailable SONJA JESUS Attending Unavailable RORY KILGORE Attending Unavailable NO FAMILY, PHYSICIAN Primary Care Provider Unava ilable Parmjit Wall MD Attending Provider Parmjit Wall MD Primary Care Provider [phone] Parmjit Wall MD Unavailable Medications Current Medications MedicationDrug Class(es)DatesSig (Normalized)Sig (Original)amoxicillin 875 mg / clavulanate 125 mg oral tablet (5 sources)Penicillin-class AntibacterialStart: 11-27-2023 End: 34-31-5866gnqh 1 tablet by mouth in the morningamoxicillin-clavulanate (Augmentin) 875-125 MG tablet Indications: Sialadenitis Take 1 tablet (875 mg) by mouth in the morning and 1 tablet (875 mg) before bedtime. Do all this for 10 days. 20 lbyknt1011/27/2023 12/07/2023 Activeascorbic acid 60 mg / beta [...] sources)Platelet Aggregation Inhibitor, Nonsteroidal Anti-inflammatory Drug Start: 34-05-8834xojp 1 tablet by mouth once dailyAspirin 81 mg tablet,delayed release (DR/EC) Active 81 MG PO Daily December 02, 2024 12:00am Complies with drug hr buPROPion hydrochloride 300 mg extended release oral tablet (20 sources)AminoketoneStart: 42-22-3450mtlk 1 tablet by mouth once daily in [...] 02, 2024 12:00am Complies with drug therapyStart: 33-44-3436ntcy 1 tablet by mouth every twenty- four hours in the morningbuPROPion XL (Wellbutrin XL) 150 MG 24 hr tablet Indications: Major depressive disorder, recurrent episode, mild Take 1 tablet (150 mg) by mouth in the morning. Do not crush, chew, or split. 90 tablet 3 07/29/2024 ActiveStart: 05-14-2024 End: 40-31-4610jufb 1 tablet by mouth once dailybuPROPion XL (Wellbutrin XL) 300 MG 24 hr tablet Indications: Major depressive disorder, recurrent episode, mild Take 1 tablet (300 mg) by mouth Daily 90 tablet 1 07/14/2024 ActiveStart: 05-14-2024 End: 04-99-0056giva 1 tablet by mouth every twenty-four hours in the morning buPROPion XL (Wellbutrin XL) 150 MG 24 hr tablet Indications: Major depressive disorder, recurrent episode, mild (HCC) (CMS/HCC) Take 1 tablet (150 mg) by mouth in the morning. Do not crush, chew, orsplit.. 90 tablet 3 05/14/2024 07/14/2024 DiscontinuedStart: 50-25-8117llZXNMcrq XL (Wellbutrin XL) 300 MG 24 hr tablet Indications: Major depressive disorder, recurrent episode, mild (HCC) (CMS/HCC) TAKE 1 TABLET DAILY 90 tablet 1 12/27/2023 ActiveStart: 71-32-7439wnie 1 tablet by mouth every twenty-four hours in the morningbuPROPion XL (Wellbutrin XL) 150 MG 24 hr tablet Indications: Major depressive disorder, recurrent e pisode, mild (HCC) (CMS/HCC) Take 1 tablet (150 mg) by mouth in the morning. Do not crush, chew, orsplit.. 90 tablet 3 08/01/2023 ActiveStart: 79-17-4562szjf 1 tablet by mouth every twenty-four hours in the morningbuPROPion XL (Wellbutrin XL) 300 MG 24 hr tablet Indications: Major depressive disorder, recurrent e pisode, mild (HCC) (CMS/HCC) Take 1 tablet (300 mg) by mouth in the morning. 90 tablet 3 08/01/2023ctivebuPROPion HCl Activecefdinir 300 mg oral capsule (3 sources)Cephalosporin AntibacterialStart: 03-03-2024 End: 22-86-3711zqop 1 capsule by mouth in the morningcefdinir (Omnicef) 300 MG capsule Indications: Upper respiratory tract infection, unspecified type Take 1 capsule (300 mg) by mouth in the morning and 1 capsule (300 mg) before bedtime. Do all this for 10 days. 20 capsule 03/03/2024 03/12/2024 DiscontinueddiazePAM 5 mg oral tablet (3 sources)BenzodiazepineStart: 05-22-2024 End: 41-00-5454unikvEFD (Valium) 5 MG tablet Indications: Anxiety with flying (CMS/HCC) Take 1-2 tabs 30 minutes prior to flight 4 tablet 05/22/2024 07/14/2024 Discontinuedescitalopram 20 mg oral tablet (20 sources)Serotonin Reuptake InhibitorStart: 33-12-6117iqfd 1 tablet by mouth once dailyEscitalopram Oxalate 20 mg tablet Active 20 MG PO Daily December 02, 2024 12:00am Complies with drug therapyStart: 05-19-2024 End: 92-03-3460tfcq 1 tablet by mouth once dailyescitalopram (Lexapro) 20 MG tablet Indications: Major depressive disorder, recurrent episode, mildTake 1 tablet (20 mg) by mouth Daily 90 tablet 3 07/14/2024 ActiveStart: 71-40-9749kymy 1 tablet by mouth once dailyescitalopram (Lexapro) 20 MG tablet Indications: Major depressive disorder, recurrent episode, mild(HCC) (CMS/HCC) Take 1 tablet (20 mg) by mouth Daily 90 tablet 3 05/14/2024 ActiveStart: 10-98-6662zahz 1 tablet by mouth once dailyescitalopram (Lexapro) 20 MG tablet Indications: Major depressive disorder, recurrent episode, mild(HCC) (CMS/HCC) Take 1 tablet (20 mg) by mouth Daily 90 tablet 3 08/01/2023 ActiveEscitalopram Oxalate 20 MG Oral for 90 Days Activeloratadine 10 mg oral tablet (20 sources)Start: 32-31-0722kiwe 1 tablet by mouth once dailyLoratadine 10 mg tablet Active 10 MG PO Daily December 02, 2024 12:00am Complies with drug therapyMultivitamin (Daily Multi-Vitamin) tablet (1 source)Start: 67-64-1671oqrn 1 tablet by mouth once dailyMultivitamin (Daily Multi-Vitamin) tablet Active 1 TAB PO Daily December 02, 2024 12:00am Complies with drug therapyphentermine hydrochloride 37.5 mg oral tablet (20 sources)Sympathomimetic Amine AnorecticStart: 12-04-2023 End: 53-04-2933fxnq 1 tablet by mouth before mealtimephentermine (Adipex-P) 37.5 MG tablet Indications: Overweight (BMI 25.0-29.9) Take 1 tablet (37.5 mg) by mouth in the morning. Take before meals. 30 tablet 04/29/2024 07/14/2024 Discontinuedpolyethylene glycol 3350 45453 mg powder for oral solution (20 sources)Osmotic Laxative End: 36-84-4256ombm 17 g by mouth in the morningpolyethylene glycol, PEG, 3350 (Miralax) 17 g packet Take 17 g by mouth in the morning. 07/14/2024 Discontinued simvastatin 40 mg oral tablet (20 sources)HMG-CoA Reductase InhibitorStart: 47-52-6338zyuf 1 tablet by mouth once daily at bedtimeSimvastatin 40 mg tablet Active 40 MG PO Daily at bedtime December 02, 2024 12:00am Complies with drug therapyStart: 05-14-2024 End: 99-58-9014mayo 1 tablet by mouth at bedtimesimvastatin (Zocor) 40 MG tablet Indications: Dyslipidemia Take 1 tablet (40 mg) by mouth at bedtime 90 tablet 3 07/14/2024 ActiveStart: 19-16-8417qczxvvcehst (Zocor) 40 MG tablet Indications: Dyslipidemia (CMS/HCC) TAKE 1 TABLET AT BEDTIME 90 tablet 3 06/21/2023 Active Simvastatin Activetriamcinolone acetonide 10 mg/ml injectable suspension (4 sources)CorticosteroidStart: 03-13-2024 End: 44-42-8990ygroiextykjrv acetonide (Kenalog) injection 5 mgStart: 03-13-2024 End: mg, Intra-lesional, Once, On Melody 03/13/24 at 1030, For 1 dose Start: 03-13-2024 End: 23-13-5883gwpqvidlxfysh acetonide (Kenalog) injection 5 mgStart: 03-13-2024 End: mg, Intra-lesional, Once, On Sun03/13/24 at 1030, For 1 dose Problems Active Problems Problem ClassificationProblemDateDocumented DateEpisodic/ChronicAcquired foot deformities (2 sources)Acquired left hallux varus; Translations: [Hallux varus (acquired), left foot]12-70-1412SvqcgizMqgfdszub of lipid metabolism (20 sources)Hyperlipidemia, unspecified; Translations: [Dyslipidemia]Onset: 493794-57-8416LhbtmwbVtbasjqexm disorders (20 sources)Gastroesophageal reflux disease; Translations: [Gastro-esophageal reflux disease without esophagitis]Onset: 548003-03-8334ZksrhyyRgio disorders (20 sources)Recurrent major depressive episodes, mild ; Translations: [Major depressive disorder, recurrent, mild]Onset: 315458-21-0171IrobdonPlxvivtvl of unspecified nature or uncertain behavior (2 sources)Neoplastic disease; Translations: [Neoplasm of unspecified behavior of bone, soft tissue, and skin]62-55-6652EcobniphRltve aftercare (1 source)Other fdc (current) drug therapy; Translations: [OTH INTERMEDIATE CURRENT DRUG THERAPY]Onset: 30-00-4015YsmmmfujUkybo and unspecified benign neoplasm (2 sources)Melanocytic nevus; Translations: [Melanocytic nevi, unspecified] 27-35-5022ZmpjgxejFtzdb and unspecified benign neoplasm (2 sources)Melanocytic nevus of trunk; Translations: [Melanocytic nevi of trunk] 56-47-9562EpfofonzSwmxh and unspecified benign neoplasm (2 sources)Senile angioma; Translations: [Hemangioma of skin and subcutaneous tissue]40-11-2796KfemvahtLtkjs connective tissue disease (1 source)Pain in right hand; Translations: [Pain in right hand]EpisodicOther connective tissue disease (2 sources)Pain in right hand; Translations: [Pain in right hand]Onset: 99-36-0955NhwqnegsWzqjr connective tissue disease (2 sources)Capsulitis of metatarsophalangeal joint of left foot; Translations: [Other enthesopathy of left foot and ankle]20-94-9062FtenshcpXqogk ear and sense organ disorders (20 sources)Bilateral hearing loss; Translations: [Unspecified hearing loss, bilateral]Onset: 172538-75-2755KwfdbuuGsgws non-traumatic joint disorders (4 sources)Other specific joint [...] (BMI) of 30.0 to 30.9 in adult]Onset: 267560-30-1315SscpbqvBnzur nutritional; endocrine; and metabolic disorders (1 source)Overweight; Translations: [Overweight]58-31-6818MesvhyhmZfhbz screening for suspected conditions (not mental disorders or infectious disease) (4 sources)Encounter for screening mammogram for malignant neoplasm of breast; Translations: [ENC SCR MAMMO MALIG NEOPLASM BREAST]Onset: 32-00-7600Bppwwqsp Other skin disorders (2 sources)Seborrheic keratosis; Translations: [Other seborrheic keratosis] 92-82-1758HebvkhprNbvwu skin disorders (2 sources)Lentiginosis; Translations: [Other melanin hyperpigmentation] 42-19-1585JxawyivxTdsij skin disorders (4 sources)Actinic keratosis; Translations: [Actinic keratosis]01-28-2024 EpisodicOther skin disorders (4 sources)Keloid scar; Translations: [Hypertrophic scar]89-16-0322IwwnnfydZhvrt upper respiratory disease (20 sources)Allergic rhinitis due to pollen; Translations: [Allergic rhinitis due to pollen]Onset: 103497-12-5566JalnwovBpswpezl codes; unclassified (1 source)Family history of malignant neoplasm of other organs or systems; Translations: [FAM HX MALIG NEOPLASM OT ORGN/SYS]Onset: 23-80-3107Zevzlpba Spondylosis; intervertebral disc disorders; other back problems (20 sources)Degeneration of lumbar intervertebral disc; Translations: [DDD (degenerative disc disease), lumbar]Onset: hronic Superficial injury; contusion (1 source)Contusion of right hand, initial encounterEpisodicUnclassified (3 sources)LOW BACK PAIN, UNSPECIFIED; Translations: [LOW BACK PAIN, UNSPECIFIED]Onset: 60-29-6621Jjmjzeesalfy (1 source)Pain in right shoulder; Translations: [Pain in right shoulder]Onset: 40-76-4212Ukpbtqglawya (16 sources)Patient on antidepressant monitoring planOnset: 088893-74-8139 Unclassified (16 sources)Baseline PHQ-9Onset: 957476-19-7021 Past or Other Problems Problem ClassificationProblemDateDocumented DateEpisodic/ChronicDiabetes mellitus without complication (20 sources)Prediabetes; Translations: [Prediabetes]Onset: 89-57-5417Lbtqwfed Diseases of mouth; excluding dental (20 sources)Sialoadenitis; Translations: [Sialoadenitis, unspecified]Onset: 11-27-2023 Resolved: 874776-37-4549TenaoqvcTskmgrmiomlt breast conditions (12 sources)Large breast; Translations: [Hypertrophy of breast]Onset: 09-05-2024 57-66-9843QfqulyegJofzb aftercare (20 sources)Long-term current use of drug therapy; Translations: [Other fdc (current) drug therapy]Onset: 729159-07-7205YgczipqjBiika connective tissue disease (20 sources)Plantar fasciitis; Translations: [Plantar fascial fibromatosis] Onset: 01-31-2023 Resolved: 807274-23-6712DwdxddfrQpdct connective tissue disease (20 sources)Trochanteric bursitis of left hip; Translations: [Trochanteric bursitis, left hip]Onset: 408354-46-0136JcvryigoMdabz lower respiratory disease (4 sources)Pleurodynia; Translations: [PLEURODYNIA]Onset: 50-58-4447Hvbfnlqx Other nutritional; endocrine; and metabolic disorders (20 sources)Body mass index 25-29 - overweight; Translations: [Overweight]Onset: 953992-68-2091XteurlisFrmlhlfuvcn; intervertebral disc disorders; other back problems (19 sources)Neck pain; Translations: [Cervicalgia]Onset: EpisodicUnclassified (1 source)LOW BACK PAIN, UNSPECIFIED; Translations: [LOW BACK PAIN, UNSPECIFIED] Onset: 09-12-2021 Results Test NameValueInterpretationReference RangeFacilityALL CBC WITH AUTO DIFFon 76-92-4913LPJVPCZNA ABSOLUTE AUTO0.1NOMS HealthcareBasophils/100 WBC (Bld)1.2 % 0.2 - 2.0 %NOMUniversity Of Missouri Children'S HospitalEosinophils/100 WBC (Bld)4.8 %0.9 - 7.0 %[facility] HospitalErythrocyte distribution width (RBC) [Ratio]13.5 %11.0 - 15.0 %[facility] HospitalHematocrit (Bld) [Volume fraction]34.5 %Low36.0 - 48.0 %[facility] HospitalHemoglobin (Bld) [Mass/Vol]11.2 g/dLLow12.0 - 16.0 g/dLBarnes-Jewish [facility] Hospital IMMATURE GRANULOCYTES ABS [id number] Cancer InstituteImmature granulocytes/100 WBC (Bld)0 %0.0 - 0.5 %[facility] HealthcareInterpretation and review of laboratory resultsAbnormalNOFreeman Cancer InstituteLYMPHOCYTES ABSOLUTE AUTO1.7NOFreeman Cancer Institute Lymphocytes/100 WBC (Bld)36.1 %20.5 - 60.0 %[facility] SystemsH (RBC) [Entitic mass]29 pg26.7 - 34.0 pgNOSaint John's Regional Health CenterHC (RBC) [Mass/Vol]32.5 g/dL29.9 - 35.2 g/dLPemiscot Memorial Health SystemsV (RBC) [Entitic vol]89.4 fL81.0 - 99.0 fLNOFreeman Cancer Institute MONOCYTES ABSOLUTE AUTO0.5NOFreeman Cancer InstituteMonocytes/100 WBC (Bld)10.2 %1.7 - 12.0 %[facility] HospitalNEUTROPHILS ABSOLUTE AUTO2.3NOMS [facility] LimaNeutrophils/100 WBC (Bld)47.7 %43.0 - 75.0 %[facility] HealthcarePlatelet mean volume (Bld) [Entitic vol] 10.1 fL9.5 - 13.5 fLNOFreeman Cancer InstituteTBH EO #0.2NOMS [facility] LimaTB [id number] [facility] LimaTB RBC3.86LowNOSSM Health [facility] WBC4.8NOMS HealthcareCLINISYNCNOzarks Community HospitalNo Panel Informationon [id number] HealthcareNo Panel Informationon [id number] HealthcareType of biopsy: tangential Informed consent: discussed [...] taken Amount of lidocaine used: 1.0 ccNOMS [facility] HospitalALL CBC WITH AUTO DIFFon 99-60-9442GWEVEWYTM ABSOLUTE AUTO0.1NOMS [facility] LimaBasophils/100 WBC (Bld)1.1 %0.2 - 2.0 %[facility] HospitalEosinophils/100 WBC (Bld)4.5 %0.9 - 7.0 % [facility] HospitalErythrocyte distribution width (RBC) [Ratio]12.3 %11.0 - 15.0 % [facility] HospitalHematocrit (Bld) [Volume fraction]39 %36.0 - 48.0 %[facility] HospitalHemoglobin (Bld) [Mass/Vol]12.9 g/dL12.0 - 16.0 g/dLBarnes-[facility] IMMATURE GRANULOCYTES ABS [id number] HealthcareImmature granulocytes/100 WBC (Bld)0 %0.0 - 0.5 %[facility] HospitalLYMPHOCYTES ABSOLUTE AUTO1.8N[facility]S [facility] Lymphocytes/100 WBC (Bld)37.8 %20.5 - 60.0 %[facility] Health SystemsH (RBC) [Entitic mass]30.1 pg26.7 - 34.0 pgPemiscot Memorial Health SystemsHC (RBC) [Mass/Vol]33.1 g/dL29.9 - 35.2 g/dLPemiscot Memorial Health SystemsV (RBC) [Entitic vol]91.1 fL81.0 - 99.0 fLBarnes-Jewish West County HospitalMONOCYTES ABSOLUTE AUTO0.4NONV HealthcareMonocytes/100 WBC (Bld)9.3 % 1.7 - 12.0 %[facility] HospitalNEUTROPHILS ABSOLUTE AUTO2.2N[facility] Neutrophils/100 WBC (Bld)47.3 %43.0 - 75.0 %[facility] HospitalPlatelet mean volume (Bld) [Entitic vol]9.7 fL9.5 - 13.5 fLBarnes-Jewish West County HospitalTBH EO #0.2N[facility]S Healthcare TBH [id number] HealthcareTBH RBC4.28NOMS HealthcareTBH WBC4.7[facility] CLINISYNCNONV HealthcareMM TOMOSYNTHESIS SCREENING BIon 93-86-6880LnkRoot[place] [address] Mammography Report Signed Patient: Dashawn Nelson MR#: [id number] : 1955 Acct:[id number] Age/Sex: 68 / F ADM Date: 12/03/23 Loc: MAMMO Attending Dr: Parmjit Wall M.D. Ordering Physician: Parmjit Wall M.D. Results: Date of Service: 12/03/23 Follow Up: Procedure(s): MM tomosynthesis screening BI Accession Number(s): [id number] cc: Parmjit Wall M.D. Patient Name: DASHAWN NELSON MR#: [id number] : 1955 Exam Date: 12/03/2023 Ordering Doctor: DR Parmjit Wall . RADIOLOGY REPORT PROCEDURE: MM TOMOSYNTHESIS SCREENING BI COMPARISON: MG MAMM SCREEN 3D CELINA CAD, 11/22/2021. MM TOMOSYNTHESIS SCREENING BI, 11/23/2022. INDICATIONS: Screening Calculator Name NCI Breast Cancer Risk Assessment Tool 5 Year Breast Cancer Risk 1.40% Lifetime Breast Cancer Risk 4.30% Personal Breast Cancer No Personal Ovarian Cancer No Treatments None Family Cancers Sister with pancreatic cancer at age 74. LOCATION: [facility] BREAST COMPOSITION: The breasts are heterogeneously dense,which [...] 12:07 Dictated By: Tiburcio Tejeda M.D. Signed By: 12/03/23 1208 DD/ 1207 TD/TT: [employer] Team Member:TBHRadiology, Radiologist, - 12/03/2023 [place] [address] Mammography Report Signed Patient: Dashawn Nelson MR#: [id number] : 1955 Acct:[id number] Age/Sex: 68 / F ADM Date: 12/03/23 Loc: MAMMO Attending Dr: Parmjit Wall M.D. Ordering Physician: Parmjit Wall M.D. Results: Date of Service: 12/03/23 Follow Up: Procedure(s): MM tomosynthesis screening BI Accession Number(s): [id number] cc: Parmjit Wall M.D. Patient Name: DASHAWN NELSON MR#: [id number] : 1955 Exam Date: 12/03/2023 Ordering Doctor: DR Parmjit Wall . RADIOLOGY REPORT PROCEDURE: MM TOMOSYNTHESIS SCREENING BI COMPARISON: MG MAMM SCREEN 3D CELINA CAD, 11/22/2021. MM TOMOSYNTHESIS SCREENING BI, 11/23/2022. INDICATIONS: Screening Calculator Name NCI Breast Cancer Risk Assessment Tool 5 Year Breast Cancer Risk 1.40% Lifetime Breast Cancer Risk 4.30% Personal Breast Cancer No Personal Ovarian Cancer No Treatments None Family Cancers Sister with pancreatic cancer at age 74. LOCATION: [facility] BREAST COMPOSITION: The breasts are heterogeneously dense,which [...] 12:07 Dictated By: Tiburcio Tejeda M.D. Signed By: 12/03/23 1208 DD/ 1207 TD/TT: [employer] Team Member: [facility] HospitalRadiology Study observation (narrative)[facility] TOMOSYNTHESIS SCREENING BIOrdered By: Radiologist Radiology on [id number]-Jewish [facility] Hospital Work Phone: MRI SHOULDER RT WO CONon [id number] SHOULDER RT WO CONEXAMINATION: MRI SHOULDER RT [...] Electronically authenticated by: EARNESTINE WALKER Date: 2021-12-27 07:[address] [place], [place] [address]XR hand RT min 3V*on 33-84-5906YD hand RT min 3V*[facility] [employer] Other XR hand RT min 3V*[facility] [employer] Other XR hand RT min 3V*[address] [place] [address] [employer] Other XR hand RT min 3V*AbranAIDEE [address] [place] [address] [employer] Other XR hand RT min 3V*[facility] [employer] Other XR hand RT min 3V*[facility] [employer] Other XR hand RT min 3V*Patient: Dashawn Nelson MR#: [id number] [employer] Other XR hand RT min 3V*[address] [place] [address] [employer] Other XR hand RT min 3V*: 1955 Acct:[id number] [employer] Other XR hand RT min 3V*Age/Sex: 66 / F ADM Date: 12/11/21 [facility] [employer] Other XR hand RT min 3V*Loc: XDUCLY Room: Type: [facility] [employer] Other XR hand RT min 3V*Attending Dr: Jenny KULKARNI [facility] [employer] Other XR hand RT min 3V*Copies to: SHAD Rivas [facility] [employer] Other XR hand RT min 3V*Ordering Provider: TWYLA RivasOverlake Hospital Medical Center [employer] Other XR hand RT min 3V*Date of Service: 12/11/21[place] [employer] Other XR hand RT min 3V* XR/XR hand RT min 3V*: Acute pain of right shoulder;Right hand painMountain View [employer] Other XR hand RT min 3V*XR hand RT min 3V* 12/11/2021 9:25 [facility] [employer] Other XR hand RT min 3V*SIGNS AND SYMPTOMS: Pain in right hand after fallMountain View [employer] Other XR hand RT min 3V*PROTOCOL: Frontal, lateral, and oblique radiographs of the right handMountain View [employer] Other XR hand RT min 3V*COMPARISON: [facility] [employer] Other XR hand RT min 3V*FINDINGS:[facility] Other XR hand RT min 3V*There is mild narrowing of the joint spaces of the thumb. There is no evidence of fracture. [facility] [employer] Other XR hand RT min 3V*dislocation or subluxation. No significant soft tissue swelling.[facility] Other XR hand RT min 3V* XR/XR hand RT min 3V*[facility] Other XR hand RT min 3V*IMPRESSION:[facility] Other XR hand RT min 3V*No acute bony injury.[facility] Other XR hand RT min 3V*Mild degenerative changes are noted in the thumb.[facility] Other XR hand RT min 3V*Impression dictated by: Jose Castro M.D.12/11/2021 10:00 [facility] [employer] Other XR hand RT min 3V*Dictation Location: [id number]-FZ-41Pzofm [employer] Other XR hand RT min 3V*Transcribed By: [facility] 12/11/21 [facility] Other XR hand RT min 3V*Dictated By: Jose Castro II, MD 12/11/[address] [place] [address] [employer] Other XR hand RT min 3V*Signed By:[facility] Other XR hand RT min 3V*12/11/21 [facility] Other XR hand RT min 3V*[facility] [place] [address] [place] [address] XRay Report Signed Patient: Dashawn Nelson MR#: [id number] : 1955 Acct:[id number] Age/Sex: 66 / F ADM Date: 12/11/21 [facility] Type[facility] Attending Dr: Jenny KULKARNI Copies to: [...] Jose Castro M.D.12/11/2021 10:00 AM Dictation Location: [place] [address] Transcribed By: [facility] 12/11/21 1000 Dictated By: Jose Castro II, MD 12/11/21 0958 Signed By: 12/11/21 1000NoC[facility] Clinic [facility] Pointe HospitalXR shoulder RT min 2V*on [id number] shoulder RT min 2V* XR/XR shoulder RT min 2V*: Acute pain of right shoulder;Right hand painSpire Technologies Other XR shoulder RT min 2V*XR shoulder RT min 2V* 12/11/2021 9:25 [facility] Other XR shoulder RT min 2V*SIGNS AND SYMPTOMS: Pain in right shoulder and right hand after fallNoSpire Technologies Other XR shoulder RT min 2V*PROTOCOL: Frontal, Grashey, and scapular Y views of the right shoulderNoSpire Technologies Other XR shoulder RT min 2V*There is mild narrowing of the glenohumeral joint. Mild degenerative changes are noted in [employer] Other XR shoulder RT min 2V*acromioclavicular joint. There is subcortical sclerosis at the greater tuberosity of the humerus.[facility] Other XR shoulder RT min 2V*There is no evidence of fracture or dislocation. The visualized right hemithorax is grossly intact.[facility] Other XR shoulder RT min 2V* XR/XR shoulder RT min 2V*[facility] Other XR shoulder RT min 2V*No fracture or dislocation.[facility] Other XR shoulder RT min 2V*Degenerative changes are noted with findings suspicious for underlying rotator cuff abnormalities.[facility] Other XR shoulder RT min 2V*Impression dictated by: Jose Castro M.D.12/11/2021 10:17 [facility] [employer] Other XR shoulder RT min 2V*Transcribed By: DARI 12/11/21 [facility] Other XR shoulder RT min 2V*Dictated By: Jose Castro II, MD 12/11/21 [facility] Other XR shoulder RT min 2V*12/11/21 [facility] Other XR shoulder RT min 2V*[facility] [place] [address] [place] [address] XRay Report Signed Patient: Dashawn Nelson MR#: [id number] : 1955 Acct:[id number] Age/Sex: 66 / F ADM Date: 12/11/21 Loc: [facility] Room: Type: [facility] Attending Dr: Jenny KULKARNI Copies to: [...] Jose Castro M.D.12/11/2021 10:17 AM Dictation Location: [place] [address] Transcribed By: [facility] 12/11/21 1017 Dictated By: Jose Castro II, MD 12/11/21 1016 Signed By: 12/11/21 1017[facility] HospitalMG M[facility]M SCRE[facility] 3D CELINA CADon 90-27-1786OJ MAMM SCREEN 3D CELINA CADPatient: DASHAWN NELSON Exam Date: 11/22/2021 : 1955 Gender:F Ordering : DR PARMJIT WALL . Admission #: [id number] Family : Order #: [id number] CLICK HERE TO VIEW EXAM RADIOLOGY REPORT [...] pancreatic cancer at age 73. LOCATION: [facility] BREAST COMPOSITION: Heterogeneously dense,which may obscure small [...] by: Tiburcio Tejeda MD on 11/22/2021 at 09:58[facility] AUTO DIFFon 54-35-1125PBFR #0.0 103/ulNormal0.0-0.1[facility] FoundationComment on above:Performed By: #### CBC #### [facility] [address] [address] [address] Joao HerrmannBasophils/100 WBC (Bld)0.6 %Normal0.2-2.0[facility] Comment on above:Performed By: #### CBC #### [facility] [address] [place] [address] [address] Joao Saba #0.3 103/ulNormal0.0-0.7[facility] FoundationComment on above: Performed By: #### CBC #### [facility] [address] [place] [address] Dr. Joao Pradoosinophils/100 WBC (Bld)4.3 %Normal0.9-7.0[facility] Comment on above:Performed By: #### CBC #### [facility] [address] [place] [address] Dr. Joao Pradorythrocyte distribution width (RBC) [Ratio]12.5 %Dswpzk50.0-15.0 The [facility] FoundationComment on above:Performed By: #### CBC #### [facility] [address] [place] [address] Dr. Joao HerrmannHematocrit (Bld) [Volume fraction]41.1 %Esttjp79.0-48.0[facility] FoundationComment on above:Performed By: #### CBC #### [facility] [address] [place] [address] Dr. Joao HerrmannHemoglobin (Bld) [Mass/Vol]13.2 g/iWHhykfg68.0-16.0[facility] FoundationComment on above:Performed By: #### CBC #### [facility] [address] [place] [address] Dr. Joao Dougherty #0.01 10e3/ulNormal0.00-0.03The [facility] FoundationComment on above:Performed By: #### CBC #### [facility] [address] [place] [address] Dr. Joao Dougherty %0.1 %Normal0.0-0.5The [facility] HospitalComment on above: Performed By: #### CBC #### [facility] [address] [address] [address] Joao Tse #2.1 103/ulNormal1.2-3.8[facility] on above:Performed By: #### CBC #### [facility] [address] [place] [address] Dr. Joao Lacyhocytes/100 WBC (Bld)31.5 %Idtrbj60.5-60.0[facility] on above:Performed By: #### CBC #### [facility] [address] [place] [address] Dr. Joao Vasquez DIFF REQNONormalThe [facility] on above: Performed By: #### CBC #### [facility] [address] [place] [address] Dr. Joao Gaspar (RBC) [Entitic mass]29.1 odXddimk70.7-34.0[facility] on above:Performed By: #### CBC #### [facility] [address] [place] [address] Dr. Joao Gaspar (RBC) [Mass/Vol]32.1 g/cEMcvpun86.9-35.2[facility] on above:Performed By: #### CBC #### [facility] [address] [place] [address] Dr. Joao Gaspar (RBC) [Entitic vol]90.7 oQLmhwcs39.0-99.0[facility] on above:Performed By: #### CBC #### [facility] [address] [place] [address] Dr. Joao Garcia #0.5 103/ulNormal0.3-0.8[facility] on above:Performed By: #### CBC #### [facility] [address] [place] [address] Dr. Joao Reganocytes/100 WBC (Bld)7.9 %Normal1.7-12.0[facility] Comment on above:Performed By: #### CBC #### [facility] [address] [address] [address] Joao Brasher #3.7 103/ulNormal1.4-6.5The [facility] FoundationComment on above:Performed By: #### CBC #### [facility] [address] [address] [address] Joao Nicholsutrophils/100 WBC (Bld)55.6 %Pyglmq76.0-75.0The [facility] FoundationComment on above:Performed By: #### CBC #### [facility] [address] [address] [address] Joao HerrmannPlatelet mean volume (Bld) [Entitic vol]10.2 fLNormal9.5-13.5The [facility] FoundationComment on above:Performed By: #### CBC #### [facility] [address] [address] [address] Joao HerrmannPLT245 103/ydCusjxt267-435Vlc [facility] FoundationComment on above: Performed By: #### CBC #### [facility] [address] [place] [address] Dr. Joao HerrmannRBC4.53 106/ulNormal4.20-5.40The [facility] FoundationComment on above:Performed By: #### CBC #### [facility] [address] [place] [address] Dr. Joao HerrmannWBC6.7 103/ulNormal4.0-11.0The [facility] FoundationComment on above: Performed By: #### CBC #### [facility] [address] [place] [address] Dr. Joao HerrmannGLYCOHEMOGLOBIN A1Con 50-20-3121FCF RECOMMENDATIONSEE BELOWNormal St. Charles HospitalComment on above:Result Comment: ADA RECOMMENDED LIMIT 4.0 - 6.0 ADA THERAPEUTIC TARGET < 7.0 ACTION SUGGESTED > 7.0Performed By: #### A1C #### [facility] [address] [place] [address] Dr. Joao HerrmannGlucose [Mass/Vol]114 mg/dLUniversity Hospitals Samaritan Medical CenterComment on above:Performed By: #### A1C #### [facility] [address] [place] [address] Dr. Joao HerrmannHbA1c (Bld) [Mass fraction]5.6 %Normal4.5-6.2St. Charles HospitalComment on above:Performed By: #### A1C #### [facility] [address] [address] [address] Joao SchwartzID PROFILEon 64-40-2854BUBA-HDL RATIO NORMSEE [facility] Memorial HospitalComment on above:Result Comment: 3.3 - 4.4 LOW RISK 4.4 - 7.1 AVERAGE RISK 7.1 - 11.0 MODERATE RISK >11.0 HIGH RISKPerformed By: #### LIPID, BMP, LIVER #### [facility] [address] [place] [address] Dr. Joao Shoemakeresterol [Mass/Vol]186 mg/dLNormal<=200[facility] Comment on above:Performed By: #### LIPID, BMP, LIVER #### [facility] [address] [place] [address] Dr. Joao Shoemakeresterol in HDL [Mass/Vol]71 mg/dLCritically wetj25-50GqlSt. Charles HospitalComtrinity health shel[facility] hospital on above:Performed By: #### LIPID, BMP, LIVER #### [facility] [address] [place] [address] Dr. Joao Shoemakeresterol in LDL [Mass/Vol]97.4 mg/dLUniversity Hospitals Samaritan Medical CenterComment on above:Performed By: #### LIPID, BMP, LIVER #### [facility] [address] [place] [address] Dr. Joao Shoemakeresterque.total/Cholesterol in HDL [Mass ratio]2.6 {ratio} NormalSt. Charles HospitalComment on above:Performed By: #### LIPID, BMP, LIVER #### [facility] [address] [place] [address] Dr. Joao HerrmannHDL NORMAL> or = 60 mg/dl - LOW CARDIOVASCULAR RISK <40 mg/dl - HIGH CARDIOVASCULAR RISKUniversity Hospitals Samaritan Medical CenterComment on above:Performed By: #### LIPID, BMP, LIVER #### [facility] [address] [address] [address] Joao Winter CALC NORMALSEE BELOWUniversity Hospitals Samaritan Medical CenterComment on above:Result Comment: <100 mg/dl OPTIMAL 100 - 129 mg/dl NEAR OR ABOVE OPTIMAL 130 - 159 mg/dl BORDERLINE HIGH 160 - 189 mg/dl HIGH >190 mg/dl VERY HIGH Performed By: #### LIPID, BMP, LIVER #### [facility] [address] [address] [address] Joao HerrmannTriglyceride [Mass/Vol]88 mg/dLNormal<=150The [facility] Comment on above:Performed By: #### LIPID, BMP, LIVER #### [facility] [address] [place] [address] Dr. Joao EmeryLDL CALC17.6 mg/dLNoKettering Health DaytonComment on above: Performed By: #### LIPID, BMP, LIVER #### [facility] [address] [place] [address] Dr. Joao Byrd PROFILEon 26-61-4323Alaukgc [Mass/Vol]4.3 g/dLNormal3.4-5.0 The [facility] FoundationComment on above:Performed By: #### LIPID, BMP, LIVER #### [facility] [address] [place] [address] Dr. Joao HerrmannAlbumin/Globulin [Mass ratio]1.2 {ratio}NormalThe [facility] FoundationComment on above:Performed By: #### LIPID, BMP, LIVER #### [facility] [address] [place] [address] Dr. Joao Bhardwaj [Catalytic activity/Vol]79 U/ZEjukwm71-031Ril [facility]iance Hospitalment on above:Performed By: #### LIPID, BMP, LIVER #### [facility] [address] [place] [address] Dr. Joao Tariq [Catalytic activity/Vol]32 U/DNnfebi69-20Dmy [facility] FoundationComment on above:Performed By: #### LIPID, BMP, LIVER #### [facility] [address] [place] [address] Dr. Joao HerrmannAST [Catalytic activity/Vol]26 U/XPqsvdl76-77Jwi [facility] FoundationComment on above:Performed By: #### LIPID, BMP, LIVER #### [facility] [address] [place] [address] Dr. Joao ClancyI, CONJUGATED0.1 mg/dLNormal0.0-0.2[facility] Comment on above:Performed By: #### LIPID, BMP, LIVER #### [facility] [address] [place] [address] Dr. Joao Clancyirubin [Mass/Vol]0.3 mg/dLNormal0.2-1.0[facility] Comment on above:Performed By: #### LIPID, BMP, LIVER #### [facility] [address] [place] [address] Dr. Joao HerrmannGlobulin (S) [Mass/Vol]3.7 g/dLNormalThe [facility] FoundationComment on above:Performed By: #### LIPID, BMP, LIVER #### [facility] [address] [place] [address] Dr. Joao HerrmannProtein [Mass/Vol]8.0 g/dLNormal6.4-8.2[facility] Comment on above:Performed By: #### LIPID, BMP, LIVER #### [facility] [address] [place] [address] Dr. Joao HerrmannPROF CHEM 8 (BAS METB)on 36-53-1035Gqggy gap [Moles/Vol]12.7 mmol/LNormalSt. Charles HospitalComment on above:Performed By: #### LIPID, BMP, LIVER #### [facility] [address] [place] [address] Dr. Joao HerrmannCalcium [Mass/Vol]9.5 mg/dLNormal8.5-10.1[facility] Comment on above:Performed By: #### LIPID, BMP, LIVER #### [facility] [address] [address] [address] Joao HerrmannChloride [Moles/Vol]101 mmol/VJwvanm99-215Huz [facility] Comment on above:Performed By: #### LIPID, BMP, LIVER #### [facility] [address] [address] [address] Joao HerrmannCO2 [Moles/Vol]27.9 mmol/MRlyokb01.0-32.0[facility] Comment on above:Performed By: #### LIPID, BMP, LIVER #### [facility] [address] [address] [address] Joao HerrmannCreatinine [Mass/Vol]0.97 mg/dLNormal0.55-1.02St. Charles HospitalComment on above:Performed By: #### LIPID, BMP, LIVER #### [facility] [address] [address] [address] Joao PradoGFR-AF MALTESE>60Normal>=60The [facility] FoundationComment on above:Performed By: #### LIPID, BMP, LIVER #### [facility] [address] [address] [address] Joao PradoGFR-NON AF XYPAALLH14 mL/min/1.59f7Asfwkoztmk low>=60The [facility] FoundationComment on above:Performed By: #### LIPID, BMP, LIVER #### [facility] [address] [address] [address] Joao HerrmannGlucose [Mass/Vol]95 mg/iMXfdrmz47-208Nud [facility] Comment on above:Performed By: #### LIPID, BMP, LIVER #### [facility] [address] [address] [address] Joao HerrmannPotassium [Moles/Vol]4.6 mmol/LNormal3.5-5.1[facility] Comment on above:Performed By: #### LIPID, BMP, LIVER #### [facility] [address] [address] [address] Joao HerrmannSodium [Moles/Vol]137 mmol/MEyuasa736-767Dzj [facility] Comment on above:Performed By: #### LIPID, BMP, LIVER #### [facility] [address] [place], [place] [address] Dr. Joao Rea nitrogen [Mass/Vol]13.0 mg/dLNormal7.0-18.0St. Charles HospitalComment on above:Performed By: #### LIPID, BMP, LIVER #### [facility] [address] [place], [place] [address] Dr. Joao Rea nitrogen/Creatinine [Mass ratio]13.4 mg/mgNoKettering Health DaytonComment on above:Performed By: #### LIPID, BMP, LIVER #### [facility] [address] [place], [place] [address] Dr. Joao HerrmannXR LSPINE MIN 4 VIEWSon 12-25-1528YZ LSPINE MIN 4 VIEWS EXAMINATION: XR LSPINE [...] Electronically authenticated by: EARNESTINE WALKER Date: 2021-09-13 08:48[facility] Medical CenterXR RIBS LT PA Antonette 63-00-2780CG RIBS LT PA CHEXAMINATION: XR RIBS LT [...] Electronically authenticated by: EARNESTINE WALKER Date: 2021-03-14 10:16[facility] Vital Signs Date TimeVital SignValuePerforming ObatzojzqQudwwgjn85-56-4249 09:30-0400Body sxikpg835.[address] [facility]10-23-2025 09:30-0400Body mass index (BMI) [Ratio]27.2 kg/q2ENIKAOVEP [facility]10-23-2025 09:30-0400Body lgohuenabgk94.1 [degF]PHYSICIAN [facility]10-23-2025 09:30-0400Body tnvnhe13.[address] [facility]10-23-2025 09:30-0400 Diastolic blood ujtzchou68 mm[Hg]PHYSICIAN [facility]10-23-2025 09:30-0400Heart rate90 /minPHYSICIAN [facility]10-23-2025 09:30-0400Respiratory rate20 /minPHYSICIAN [facility]10-23-2025 09:30-2551HiF7% (BldA) [Mass fraction]98 %PHYSICIAN [facility]10-23-2025 09:30-0400Systolic blood thlicoei250 mm[Hg]PHYSICIAN [facility]09-11-2025 13:23-0400Body dhmbou540.6 cmRory Brown DPM Work Phone: [facility] HospitalSodpyqdcrb81-15-3579 13:23-0400Body mass index (BMI) [Ratio]26.63 kg/k5Laqmhyux Brown DPM Work Phone: [facility] HospitalFvdgsuqgsn39-42-7187 13:23-0400Body vuyeuz29.84 kgNicramiro Brown DPM Work Phone: [facility] HospitalEdexjrldve63-10-9794 13:23-0400Respiratory rate16 /minRory Brown DPM Work Phone: [facility] HospitalRhtrtyhyvm18-82-8308 10:51-0400Body ufccdg360.6 cmJoaquin Rosales MD Work Phone: 1(770)[address]08-19-2025 10:51-0400Body mass index (BMI) [Ratio]27.41 kg/k0UpqlxtdJoaquin Rosales MD Work Phone: 1(821)[address]08-19-2025 10:51-0400Body weight 77.02 kgJoaquin Rosales MD Work Phone: 1(925)[address]37 [address]07-25-2025 11:14-0400Body height 167.6 cmParmjit Wall MD Work Phone: [facility] HospitalYieeapptnb01-23-0134 11:14-0400Body mass index (BMI) [Ratio]27.28 kg/m2Parmjit Wall MD Work Phone: [facility] HospitalQaxyluygvu60-33-1152 11:14-0400Body temperature 95.5 [degF]Parmjit Wall MD Work Phone: [facility] HospitalCoxfrtmwso50-91-5803 11:14-0400Body zyyupg44.66 kgParmjit Wall MD Work Phone: [facility] HospitalXeqbekjadp64-33-8271 11:14-0400Diastolic blood tbwipmrf62 mm[Hg]Parmjit Wall MD Work Phone: [facility] HospitalSdtkkhnnjh63-60-2815 11:14-0400Heart rate91 /min Parmjit Wall MD Work Phone: [facility] HospitalWcnepqvarm03-20-1363 11:14-0400Respiratory rate18 /minParmjit Wall MD Work Phone: [facility] HospitalKsbxberkjq32-70-8084 11:14-1056EdF8% (BldA) [Mass fraction]97 %Parmjit Wall MD Work Phone: [facility] HospitalMiiwcmviqg98-86-1802 11:14-0400Systolic blood mkdvawky269 mm[Hg]Parmjit Wall MD Work Phone: [facility] HospitalEuqxsklrph38-62-2445 09:32-0400Body mstbaa021.6 cmParmjit Wall MD Work Phone: [facility] HospitalSpgdhgizsj46-94-4417 09:32-0400Body mass index (BMI) [Ratio]27.12 kg/m2Parmjit Wall MD Work Phone: [facility] HospitalVygctzgtbv36-98-5755 09:32-0400Body temperature 97.81 [degF]Parmjit Wall MD Work Phone: [facility] HospitalMftddojtlx82-74-1109 09:32-0400Body ehlqrz95.2 kg Parmjit Wall MD Work Phone: [facility] HospitalKcshagzjrc08-19-3156 09:32-0400Diastolic blood txgeevaw33 mm[Hg]Parmjit Wall MD Work Phone: [facility] HospitalIyqhpottib73-96-2629 09:32-0400Heart rate84 /min Parmjit Wall MD Work Phone: [facility] HospitalDsksyzycls44-36-1238 09:32-0400Respiratory rate22 /minParmjit Wall MD Work Phone: [facility] HospitalUaclzwubmj75-63-1236 09:32-4293AcE0% (BldA) [Mass fraction]97 %Parmjit Wall MD Work Phone: [facility] HospitalQfrvxleifg64-76-4622 09:32-0400Systolic blood mm[Hg]Parmjit Wall MD Work Phone: [facility] HospitalRzzlqectvj09-05-6269 09:35-0500Body bnledz896.6 cmParmjit Wall MD Work Phone: [facility] HospitalZrajdzprfu71-41-6342 09:35-0500Body mass index (BMI) [Ratio]28.41 kg/m2Parmjit Wall MD Work Phone: [facility] HospitalXanfgwqgsk68-05-8042 09:35-0500Body temperature 95.11 [degF]Parmjit Wall MD Work Phone: [facility] HospitalYuhodmxtsx14-50-0065 09:35-0500Body .83 kgParmjit Wall MD Work Phone: [facility] HospitalZpntbdsewn80-50-5486 09:35-0500Diastolic blood rjsmcsov56 mm[Hg]Parmjit Wall MD Work Phone: [facility] HospitalJvgfbuejlm19-12-6234 09:35-0500Heart rate94 /min Parmjit Wall MD Work Phone: [facility] HospitalUashslxhqm46-92-4055 09:35-0500Respiratory rate20 /minParmjit Wall MD Work Phone: 1(530)425-[address] [place], [place] [address]Evlfpuquma96-36-6123 09:35-8218QfX9% (BldA) [Mass fraction]97 %Parmjit Wall MD Work Phone: [facility] HospitalVaridghybg30-94-2585 09:35-0500Systolic blood ybemezyx080 mm[Hg]Parmjit Wall MD Work Phone: 1(136)716-[address] [place], [place] [address]Kcvvfagnpa05-60-9628 09:05-0500Body tdxenc714.6 cmParmjit Wall MD Work Phone: 1(650)303-[address] [place], [place] [address]Alwcoszdgl73-91-4517 09:05-0500Body mass index (BMI) [Ratio]28.57 kg/m2Parmjit Wall MD Work Phone: [facility] HospitalRbxunenhkd63-10-7976 09:05-0500Body temperature 95.5 [degF]Parmjit Wall MD Work Phone: 1(401)342-[address] [place], [place] [address]Uhytazhapq92-81-8177 09:05-0500Body lvyuqj82.29 kgParmjit Wall MD Work Phone: [place] [address]Roqqvvdrsx65-09-2763 09:05-0500Diastolic blood gqjqkwqe26 mm[Hg]Parmjit Wall MD Work Phone: [facility] HospitalEfevgahzgp58-50-0758 09:05-0500Heart rate87 /min Parmjit Wall MD Work Phone: [facility] HospitalMuudfezmju46-42-4828 09:05-0500Respiratory rate22 /minParmjit Wall MD Work Phone: [facility] HospitalRwrjmvagbu15-86-2432 09:05-1794QkB5% (BldA) [Mass fraction]97 %Parmjit Wall MD Work Phone: [facility] HospitalUoikvvypwj08-81-6831 09:05-0500Systolic blood tzoahcvs451 mm[Hg]Parmjit Wall MD Work Phone: [facility] HospitalMvuhfkxpsv31-22-8688 09:36-0400Body mass index (BMI) [Ratio]29.76 kg/m2Parmjit Wall MD Work Phone: 1(952)192-[address] [place], [place] [address]Hleoatxbds35-02-0707 09:36-0400Body temperature 97.3 [degF]Parmjit Wall MD Work Phone: 1(449)080-[address] [place], [place] [address]Ehutqdruyw23-11-0617 09:36-0400Body sfdnaj08.64 kgParmjit Wall MD Work Phone: [facility] HospitalIuhuxfxjej24-12-2406 09:36-0400Diastolic blood ribcyvvi31 mm[Hg]Parmjit Wall MD Work Phone: [facility] HospitalMuqfynkubh80-02-1963 09:36-0400Heart rate73 /min Parmjit Wall MD Work Phone: [facility] HospitalXbnlonhvap95-10-8277 09:36-3291GuA6% (BldA) [Mass fraction]98 %Parmjit Wall MD Work Phone: [facility] HospitalDzoanbwktd43-88-5025 09:36-0400Systolic blood ltazowna248 mm[Hg]Parmjit Wall MD Work Phone: [facility] HospitalKqutslbfls72-93-0754 11:44-0400Body .6 cmParmjit Wall MD Work Phone: [facility] HospitalKclbbkneuu73-90-9649 11:44-0400Body mass index (BMI) [Ratio]29.54 kg/m2Parmjit Wall MD Work Phone: [place] [address]Kshkvcaxtq98-09-0241 11:44-0400Body temperature 96.21 [degF]Parmjit Wall MD Work Phone: [facility] HospitalTihmypwgzv67-41-5515 11:44-0400Body .01 kgParmjit Wall MD Work Phone: [facility] HospitalMyfbjlnwav17-14-7405 11:44-0400Diastolic blood fsrsbiwh92 mm[Hg]Parmjit Wall MD Work Phone: [facility] HospitalEnrlgabqgi15-44-4043 11:44-0400Heart rate91 /min Parmjit Wall MD Work Phone: [place] [address]Imllqavvto97-47-3302 11:44-0400Respiratory rate20 /minParmjit Wall MD Work Phone: [facility] HospitalYxvegenqwb58-40-4477 11:44-2061BaN4% (BldA) [Mass fraction]97 %Parmjit Wall MD Work Phone: [facility] HospitalCqettbmhox36-95-2882 11:44-0400Systolic blood ditwobzq122 mm[Hg]Parmjit Wall MD Work Phone: [facility] HospitalQlaeowymko30-17-2419 09:17-0400Body mass index (BMI) [Ratio]29.36 kg/m2Parmjit Wall MD Work Phone: [facility] HospitalXlxsivunjw81-17-2415 09:17-0400Body temperature 97.11 [degF]Parmjit Wall MD Work Phone: [facility] HospitalQokflnvsbh90-73-7613 09:17-0400Body .51 kgParmjit Wall MD Work Phone: [place] [address]Zqwruwvclm49-71-6555 09:17-0400Diastolic blood lbvcxsmo46 mm[Hg]Parmjit Wall MD Work Phone: [place] [address]Tvfsivdavr26-31-5586 09:17-0400Heart rate78 /min Parmjit Wall MD Work Phone: [facility] HospitalVdgrqpekpx63-87-5003 09:17-7462NhQ5% (BldA) [Mass fraction]98 %Parmjit Wall MD Work Phone: noNeoNova Network ServicesLzjanwwong73-29-1818 09:17-0400Systolic blood mcoalgty718 mm[Hg]Parmjit Wall MD Work Phone: noNeoNova Network ServicesZzjljofryi11-98-3065 10:00-0400Body sryqnv895.18 cmPameljosy Long Other [facility] Other 10-30-2022 10:00-0400Body mass index (BMI) [Ratio] 28.97 kg/z0Nlgapz Mercedes Other [facility] Other 10-30-2022 10:00-0400Body zoljcjgixpp52.7 [degF]Jenny Mercedes Other [facility] Other 10-30-2022 10:00-0400Body lhsyoc12.92 kgPamartin Long Other [facility] Other 10-30-2022 10:00-0400Diastolic blood mjumdxhg41 mm[Hg] Jenny Mercedes Other [facility] Other 10-30-2022 10:00-0400Respiratory rate16 /minJenny Long Other [facility] Other 10-30-2022 10:00-0930WoW3% (BldA) [Mass fraction]99 % Jenny Long Other [facility] Other 10-30-2022 10:00-0400Systolic blood kdvygxig938 mm[Hg] Jenny Long Other [facility] Other Encounters Encounter DateEncounter TypeCare ProviderFacilityStart: 12-04-2024 End: 00-63-3212ytqprskrlxHIHDNAQZI NO [facility] Family Medicine ClydeStart: 12-04-2024 End: 08-90-5842Qvtywvo encounter procedureParmjit Wall MD-[facility] Family [facility] Work Phone: Start: 10-23-2024 End: 89-80-1328Twqglc outpatient new 30 minutesRory Kilgore DPM Work Phone: NOVR CI PODIATRYComment on above:Capsulitis of metatarsophalangeal (MTP) joint of left foot (Primary Dx); Hallux varus (acquired), left footStart: 10-23-2024 End: 64-22-5529eejcrbydwzEOYBFAGL A BROWNNot AvailableStart: 09-30-2024 End: 74-90-2535Wdxsbs outpatient new 45 minutesJoaquin Rosales MD Work Phone: [facility] CenterComment on above: Macromastia (Primary Dx); Thoracic spine painStart: 09-05-2024 End: 20-08-2435Ryeemh flowsVeronica Wall MD Work Phone: NOLN CWM FMStart: 09-05-2024 End: 66-95-4142Bihybs Saw Wall MD Work Phone: noms CWM FMStart: 09-05-2024 End: 48-58-0400vcrjnbwwxfEOSH NADERERNot AvailableStart: 09-05-2024 End: 78-67-0792Fgfjnm outpatient visit 15 minutesParmjit Wall MD Work Phone: NOFT CWM FMComment on above:Neck pain (Primary Dx); MacromastiaStart: 09-01-2024 End: 67-55-0053Yneexlmcr Result EncounterParmjit Wall MD Work Phone: noms External Department UnsolicitedStart: 09-01-2024 End: 18-77-6895Kgvxpbpic Result EncounterParmjit Wall MD Work Phone: noms External Department UnsolicitedStart: 08-11-2024 End: 84-00-0192Ernyyf flowsKrupa Cameron PT Work Phone: noms CI PTStart: 08-11-2024 End: 08-14-4473Pqzqzj flowsKrupa Cameron PT Work Phone: noms CI PTStart: 08-11-2024 End: 85-02-2458lpiyotajujQpmccq T Blackston PT Work Phone: noms CI PTComment on above:Neck pain (Primary Dx) Start: 08-01-2024 End: 36-32-6579Glccxzqzx encounterJeminnie Cameron PT Work Phone: noms CI PTComment on above:CorrectionStart: 07-31-2024 End: 04-79-4326Iqwsghxig encounterJeannette Cameron PT Work Phone: noms CI PTComment on above:PT Initial Eval (Referral needs to be sent back for auth once scheduled.)Start: 07-14-2024 End: 47-61-6551Uisktkmary Wall MD Work Phone: noms CWM FMStart: 07-14-2024 End: 79-13-0102Tzqicejonathan Wall MD Work Phone: noms CWM FMStart: 07-14-2024 End: 73-86-4443Qyyqfr outpatient visit 15 minutesParmjit Wall MD Work Phone: noms CWM FMComment on above:Major depressive disorder, recurrent episode, mild (HCC) (CMS/HCC) (Primary Dx); Prediabetes; Overweight (BMI 25.0-29.9); Dyslipidemia (CMS/HCC)Start: 07-14-2024 End: 34-10-6425sykgqiiabkQWGV NADERERNot AvailableStart: 05-15-2024 End: 35-09-1253Fpssmh flowsheetNatalie A Felter OUTBOARD MOTOR MECHANIC-PHOTO EDITOR Work Phone: NOEP SWS DERMStart: 05-15-2024 End: 19-85-7219Zrscqt flowsheetNatalie A Felter OUTBOARD MOTOR MECHANIC-PHOTO EDITOR Work Phone: NOPW SWS DERMStart: 05-15-2024 End: 32-62-0196Cjhxvyy encounter procedureNatalie A Felter OUTBOARD MOTOR MECHANIC-PHOTO EDITOR Work Phone: NOKD SWS DERMComment on above:Actinic keratosis; KeloidStart: 05-15-2024 End: 95-35-7712rbpcaonnboPUEBBBA A FELTERNot AvailableStart: 04-22-2024 End: 64-85-0557RhowesPvcz Naderer MD Work Phone: NOMS CWM FMComment on above:Overweight (BMI 25.0-29.9) Start: 04-08-2024 End: 62-92-2241IfbhmpJhgz Naderer MD Work Phone: NOMS CWM FMComment on above:Overweight (BMI 25.0-29.9) Start: 03-13-2024 End: 83-34-7958Zpswrje encounter procedureNatalie A Felter OUTBOARD MOTOR MECHANIC-PHOTO EDITOR Work Phone: noms SWS DERMComment on above:Keloid scarStart: 03-13-2024 End: 71-92-3024ynhvlzojedVNBDWJA A FELTERNot AvailableStart: 03-12-2024 End: 44-36-9127Xselgnmary Wall MD Work Phone: NOMS CWM FMStart: 03-12-2024 End: 86-76-5701Vytrtyjonathan Wall MD Work Phone: NOMS CWM FMStart: 03-12-2024 End: 20-35-2703restgtvzuzGDUZ NADERERNot AvailableStart: 03-12-2024 End: 05-61-4655Lbfokw outpatient visit 15 minutesParmjit Wall MD Work Phone: noms CWM FMComment on above:Major depressive disorder, recurrent episode, mild (HCC) (CMS/HCC) (Primary Dx); Overweight (BMI 25.0-29.9)Start: 01-28-2024 End: 39-34-9104Zliymq flowsheetNatalie A Felter OUTBOARD MOTOR MECHANIC-PHOTO EDITOR Work Phone: NOAE SWS DERMStart: 01-28-2024 End: 31-27-9044Vflper flowsheetNatalie A Felter OUTBOARD MOTOR MECHANIC-PHOTO EDITOR Work Phone: NODX SWS DERMStart: 01-28-2024 End: 32-55-1026Kcfdnq outpatient visit 15 minutesNatalie A Felter OUTBOARD MOTOR MECHANIC-PHOTO EDITOR Work Phone: noms SWS DERMComment on above:Melanocytic nevus, unspecified location (Primary Dx); Melanocytic nevus of trunk; Seborrheic keratosis; Lentigines; Maldonado angioma; Actinic keratosis; Neoplasm of unspecified behavior of bone, soft tissue, and skinStart: 01-28-2024 End: 31-50-1550iekxhuhpcgHYWXLID A FELTERNot AvailableStart: 01-09-2024 End: 09-52-8570Krsfrs Saw Wall MD Work Phone: NOAI CWM FMStart: 01-09-2024 End: 15-34-6887Znqgeb Saw Wall MD Work Phone: NOMS CWM FMStart: 01-09-2024 End: 15-35-6108Sljphd outpatient visit 15 minutesParmjit Wall MD Work Phone: NOXQ CWM FMComment on above:Major depressive disorder, recurrent episode, mild (HCC) (CMS/HCC) (Primary Dx); Class 1 obesity due to excess calories without serious comorbidity with body mass index (BMI) of 30.0 to 30.9 in adultStart: 01-09-2024 End: 79-21-8838grlelrzdfeLFYJ NADERERNot AvailableStart: 12-11-2023 End: 31-49-6565Lsaunhuxv Result EncounterParmjit Wall MD Work Phone: noms External Department UnsolicitedStart: 12-11-2023 End: 97-64-6714Jkackfuom Result EncounterParmjit Wall MD Work Phone: noms External Department UnsolicitedStart: 12-04-2023 End: 92-07-9528Wfcfyu flowsVeronica Wall MD Work Phone: noms CWM FMStart: 12-04-2023 End: 02-01-7222Ikdknk Saw Wall MD Work Phone: noms CWM FMStart: 12-04-2023 End: 00-22-4431Dsdudkj encounter procedureParmjit Wall MD Work Phone: [facility] Work Phone: Start: 12-04-2023 End: 39-28-3292Hzeyvp follow up visit related to original Pedro Wall MD Work Phone: noms CWM FMComment on above:Medicare annual wellness visit, subsequent (Primary Dx); Dyslipidemia (CMS/HCC); Prediabetes; Class 1 obesity due to excess calories without serious comorbidity with body mass index (BMI) of 30.0 to 30.9 in adult; Encounter for long-term (current) use of medicationsStart: 12-04-2023 End: 81-38-9660ybcxikekhvKDKX NADERERNot AvailableStart: 12-03-2023 End: 51-56-8838Bvdxrqdeq Result EncounterParmjit Wall MD Work Phone: noms External Department UnsolicitedStart: 12-03-2023 End: 64-11-9561Ygtqzmkeh Result EncounterParmjit Wall MD Work Phone: noms External Department UnsolicitedStart: 11-27-2023 End: 05-75-2428Wlgebc flowsVeronica Wall MD Work Phone: noms CWM FMStart: 11-27-2023 End: 96-42-0026Krjgxp Saw Wall MD Work Phone: noms CWM FMStart: 11-27-2023 End: 56-23-5509Ptnlfn outpatient visit 15 minutesParmjit Wall MD Work Phone: noms CWM FMComment on above:Sialadenitis (Primary Dx) Start: 11-27-2023 End: 10-85-0237agnyuihvkqQAOY NADERERNot AvailableStart: 10-29-2023 End: 38-51-1461Dmkrtg Saw Wall MD Work Phone: NOUY CWM FMStart: 10-29-2023 End: 20-07-8831Uogodi Saw Wall MD Work Phone: noms CWM FMStart: 10-29-2023 End: 76-43-9832Oissme outpatient visit 15 minutesParmjit Wall MD Work Phone: noms CWM FMComment on above:Major depressive disorder, recurrent episode, mild (HCC) (CMS/HCC) (Primary Dx); DDD (degenerative disc disease), lumbar; Seasonal allergic rhinitis due to pollenStart: 10-29-2023 End: 58-13-9606hvplfgiwauWDOG NADERERNot AvailableStart: 12-26-2021 End: 41-86-4338ipiewpvfzeMW COLE ALEJANDRAFacility:V7Hlsjc: 22-72-9279Atwirx outpatient new 20 minutesPamela JuanitomondFPG Urgent Care ClydeStart: 12-11-2021 End: 67-72-7458timnnvrrhyOqcmdn Katerinrt [employer] Other Start: 12-11-2021 End: 38-58-7160Lvzudsr encounter procedureSHAD Long Work Phone: [facility] Start: 11-22-2021 End: 34-88-8358oeabycuzzgPF PARMJIT A NADERERFacility:U7Cnmoh: 11-08-2021 End: 88-71-5935idzdulhfnxMJ PARMJIT A NADERERFacility:U2Rvfxc: 09-12-2021 End: 37-94-0451erzsixmvuuZK PARMJIT A NADERERFacility:E4Easbq: 03-14-2021 End: 14-00-5214ezryasosfqGI PARMJIT A NADERERFacility:H1 Procedures DateProcedureProcedure DetailPerforming ClinicianStart: 08-48-2747HFT CBC WITH AUTO Marcial Wall MD Work Phone: Start: 21-30-3135RVLPSJLVGUG SKIN LESIONNatalie A Felter OUTBOARD MOTOR MECHANIC-PHOTO EDITOR Work Phone: Start: 26-86-0472DQSWIMAYNPP SKIN LESIONNatalie A Felter OUTBOARD MOTOR MECHANIC-PHOTO EDITOR Work Phone: Start: 51-23-7192BDDO / NAIL BIOPSYNatalie A Felter OUTBOARD MOTOR MECHANIC-PHOTO EDITOR Work Phone: Start: 38-26-9625FIW CBC WITH AUTO Marcial Wall MD Work Phone: Start: 55-51-7291DR TOMOSYNTHESIS SCREENING IVETHarc Duke CHAVES Work Phone: Start: 92-50-3673PefqbvmbrasMlvy Naderer MD Work Phone: Start: 25-42-0269DpdbltperinNkfr Naderer MD Work Phone: Start: 88-72-8345Obiag X-ray of right handNP-C Jenny Long Work Phone: Start: 09-66-7108Xbsey X-ray of right shoulderNP-C Jenny Long Work Phone: Start: 08-20-2145BtubyxmoqrdBktc Naderer MD Work Phone: Plan of Treatment DateCare ActivityDetailAuthorStart: 20-34-6810Fgtfxfw vaccinationTETANUSAMcKitrick Hospital SystemStart: 34-74-5088Nvzkctjgp for malignant neoplasm of colonNOMS HealthcareStart: 56-31-6442RSY VACCINE (1 - 1-dose 75+ series)RSV VACCINE (1 - 1-dose 75+ series)[facility] SystemStart: 01-27-2025 End: 28-60-9514Czjoksd encounter procedureNOMS SWS DERMStart: 12-04-2024 End: 96-37-7792Ljrfnsq encounter owknynhmn06/23/2025 9:15 AM EDT Office Visit [facility] CWM FM [address] [place] [address] Parmjit Wall MD [address] [place] [address] [facility] FMStart: 10-22-2025Medicare Annual Wellness (AWV)Medicare Annual Wellness (AWV)[facility] HealthcareStart: 91-17-6429Uvrtbneyx for malignant neoplasm of breastMammogramNOMS HealthcareStart: 20-76-0876Jufjxqlkb vaccinationInfluenza Vaccine (#1)[facility] HealthcareStart: 09-05-2024 End: 72-92-4105Jcuavou encounter agbkjrers22/25/2025 11:00 AM EDT Office Visit [facility] CW FM [address] [place] [address] Parmjit Wall MD [address] [place] [address] [facility] FMStart: 08-11-2024 End: 49-51-4325kzmbydtujkLQLN CI PTComment on above:Neck painStart: 07-14-2024 End: 29-41-7543Hunkdsq encounter ydgbxsoft18/02/2025 9:15 AM EDT [facility] [address] [place] [address] Parmjit Wall MD [address] [place] [address] [address] FMComment on above:ArrivedStart: 06-12-2024 End: 26-87-8473Oyjhaon encounter jzqvgfiak19/01/2025 11:15 AM EDT Office Visit [facility] [address] [place] [address] Parmjit Wall MD [address] [place] [address] NOMS CWM FMStart: 06-11-2024 End: 46-68-4245Jwngtuk encounter sqbhgafvw25/30/2025 8:45 AM EDT Office Visit [facility] C[facility] [address] [place] [address] Parmjit Wall MD [address] [place] [address] [facility] FMStart: 05-15-2024 End: 92-11-9380Rpetdzt encounter jabvgfaxu68/03/2025 1:00 PM EDT Office Visit [facility] SWS DERM [address] [place] [address] Sonja Jesus, OUTBOARD MOTOR MECHANIC-PHOTO EDITOR [address] [place] [address] ArrivedNOMS SWS DERMComment on above: ArrivedStart: 03-13-2024 End: 00-85-4118Bnplkuk encounter mjypglsfz10/30/2025 9:55 AM EST Office Visit [facility] DER[facility] [address] [place] [address] Sonja Jesus, OUTBOARD MOTOR MECHANIC-PHOTO EDITOR [address] [place] [address] NOMS SWS DERMStart: 03-10-2024 End: 59-38-8479Udnnyno encounter imdtepige27/27/2025 9:15 AM EST Office Visit [facility] [address] [place] [address] Parmjit Wall MD [address] [place] [address] NOMS CWM FMStart: 01-28-2024 End: 40-05-3022Kjqppqp encounter procedureNOMS [facility] DERMComment on above:Arrived Start: 01-21-2024 End: 09-58-7609Dywhbtv encounter lvnubceoh08/09/2024 8:45 AM EST Office Visit [facility] [address] [place] [address] Parmjit Wall MD [address] [place] [address] NOMS CW FMStart: 01-09-2024 End: 12-96-7202Lheeyes encounter procedureNOMS CW FMComment on above:Arrived Start: 12-04-2023 End: 54-35-2389Vgydd metabolic 1998 panel - Serum or PlasmaBasic metabolic panel Lab Routine Encounter for long-term (current) use of medications Expected: (Approximate), Expires: 12/03/2024NOMS HealthcareComment on above: Expected: 12/04/2023 (Approximate), Expires: 12/03/2024Start: 12-04-2023 End: 59-19-1960GMN W Auto Differential panel - BloodCBC and differential Lab Routine Encounter for long-term (current) use of medications Expected: 11/13 (Approximate), Expires: 12/03/2024NOMS HealthcareComment on above: Expected: 12/04/2023 (Approximate), Expires: 12/03/2024Start: 12-04-2023 End: 17-94-5457Fuqpyjxosn A1c/Hemoglobin.total in BloodHemoglobin A1c Lab Routine Prediabetes Expected: 12/04/2023 (Approximate), Expires: 12/03/2024[facility] Work Phone: Comment on above:Expected: 12/04/2023 (Approximate), Expires: 12/03/2024Start: 12-04-2023 End: 75-77-4018Xppecer function 2000 panel - Serum or PlasmaHepatic function panel Lab Routine Encounter for long-term (current) use of medications Expected: 12/04/2023 (Approximate), Expires: 12/03/2024NOMS HealthcareComment on above: Expected: 12/04/2023 (Approximate), Expires: 12/03/2024Start: 12-04-2023 End: 45-26-1825Dnpsn 1996 panel - Serum or PlasmaLipid panel Lab Routine Dyslipidemia (CMS/HCC) Expected: 12/04/2023 (Approximate), Expires: 12/03/2024 NOMS HealthcareComment on above:Expected: 12/04/2023 (Approximate), Expires: 12/03/2024Start: 12-04-2023 End: 77-95-6188Dbhshytwbim [Units/volume] in Serum or PlasmaTSH Lab Routine Class 1 obesity due to excess calories without serious comorbidity with body mass index (BMI) of 30.0 to 30.9 in adult Expected: 12/04/2023 (Approximate), Expires: 12/03/2024NOMS HealthcareComment on above:Expected: 12/04/2023 (Approximate), Expires: 12/03/2024Start: 12-04-2023 End: 11-81-3665Kydsnvg encounter procedureNOMS CWM FMComment on above:Arrived Start: 11-27-2023 End: 51-80-0816Jxeuide encounter chzhksaku29/15/2024 11:45 AM EDT Office Visit [facility] [address] [place] [address] Parmjit Wall MD [address] [place] [address] ArrivedNOMS CWM FMComment on above:ArrivedStart: 00-22-9091Tebedwkdj for malignant neoplasm of breastMammogramNOMS HealthcareStart: 09-28-2024Medicare Annual Wellness (AWV)Medicare Annual Wellness (AWV)[facility] HealthcareStart: 78-41-4524VYGPN-19 VACCINE ( season)COVID-19 VACCINE ( season)[facility]: 39-13-3603Jvebtmwfp vaccinationInfluenza Vaccine (#1)[facility] HealthcareStart: 67-96-9631Ojwkri vaccine hzv live for subcutaneous useZOSTER (SHINGLES) VACCINE (3 of 3)[facility]: 20-72-6671Ohihdepfe for malignant neoplasm of breastMAMMOGRAM SCREENING DISCUSSIONK[facility]: 05-22-2018Medicare Annual Wellness (AWV) Medicare Annual Wellness (AWV)[facility] HealthcareStart: 98-07-7678Ljolcqdae for malignant neoplasm of colonCOLORECTAL CANCER SCREENING DISCUSSIONK[facility] Health [facility]: 08-12-8519Zxbey panelLIPID SCREENINGK[facility]tering [facility]: 44-83-1090Eezfnroaa for malignant neoplasm of cervixCERVICAL CANCER SCREENING DISCUSSIONK[facility]: 30-02-8329Ivnwx diphtheria, tetanus and acellular pertussis (DTaP) vaccinationTDAP (ADULT)[facility]: 15-79-9082Ehyvgkfgf C screeningHEPATITIS C VIRUS SCREENINGPromedica Defiance Regional Hospital Start: 24-16-0177Iyxaijrln for malignant neoplasm of colonNOMS HealthcareStart: 37-64-1839Tkdxdlktg for osteoporosisDEXA SCAN DISCUSSIONPromedica Defiance Regional Hospital Dermatopathology examDermatopathology exam Pathology and Cytology Timed Neoplasm of unspecified behavior of bone, soft tissue, and skin Release Upon Ordering for 1 Occurrences starting 01/28/2024[facility] Work Phone: comment on above:Release Upon Ordering for 1 Occurrences starting 01/28/2024 Immunizations Immunization DateImmunizationNotesCare VgileoyjQbavnrhm59-83-4241sfcokqkty virus vaccine, unspecified formulationParmjit Wall MD Work Phone: [facility] HospitalHvzjyjgqxu57-17-1433swhmqs vaccine, unspecified formulationJoaquin Rosales MD Work Phone: [facility] HospitalVtokul16-57-6874rjyulggby virus vaccine, unspecified formulationParmjit Wall MD Work Phone: [facility] Healthcare Payers DatePayer CategoryPayerPolicy [id number] Care (unspecified)[employer] Plan Member Subscriber Plan / Payer (Effective 2024-Present) Name: DASHAWN NELSON J Relation to Subscriber: Self Name: Dashawn Nelson Payer ID: Not on file Type: Not on file Address: [address] [id number] 2025Medicare [id number] 2022Self-pay2022Medicare (Managed Care) [id number] 2020Medicare [id number] [id number] 1960 ZixvfqmRXQ85[id number] 2.0.1.864816.3.5[id number] 2.0.1.541221.3.579.2.38887-11-0081Hbzoiog5680588 2.840.1.197661.3.579.2.81682-78-9243Zsanmtm2574604 2.0.1.552917.3.579.2.60948-99-7894Lfvdhpw6041464 2.16840.1.273852.3.57[id number] 2.16840.1.747288.3.579.[id number] 2.16840.1.747479.3.579.2.9[id number] 2.16840.1.479291.3.579.2.363460-65-5960Lgcwvpm2153126 2.0.1.629877.3.579.2.794803-19-9498Xtmgxij3867201 2.840.1.446407.3.579.2.968669-05-7344Fgyosdz2969751 2.0.1.088973.3.579.2.255069-00-3770Vyiurwz6818231 2.0.1.812878.3.579.2.745459-63-2044Evxundm0021508 2.0.1.170284.3.579.2.898884-75-6265Irbxpnl7525841 2.0.1.830497.3.579.2.758659-21-6871Vomwzjv9007134 2.0.1.946726.3.579.2.798697-29-5949Gdqfdjq6479270 2.0.1.256395.3.579.2.212425-73-2551Ymzknpz6086063 2.16840.1.109582.3.579.2.1259Blue Cross Blue RothlaKA6145T47711 2.840.1.200415.38Xvbfqpi74509331 2.840.1.811362.3.579.2.531 Social History DateTypeDetailFacilityStart: 01-24-2023 End: 46-16-9972Ccr Assigned At [facility] HealthcareStart: 11-40-6874Pbf Assigned At [facility] Hospitaltart: 02-16-2023 End: 35-35-1180Kfqfijt smoking status NHISEx-smokerNOMS Healthcare End: 40-35-8696Vycoeoy of tobacco useCurrent smokerNOMS Healthcare End: 75-09-7743Qkhojyt of tobacco useCigarette SmokerNOMS HealthcareStart: 02-16-2023 End: 28-04-1009Tutkreh use and exposureSmokeless tobacco non-userNOMS Healthcare Start: 10-29-2023 End: 06-84-9869Hjagmfokl beverage intakeCurrent drinker of alcohol (finding)[facility] HealthcareStart: 01-24-2023 End: 25-37-5926Vrusqdw of Social functionNOMS HealthcareWithin the last year, [...] (I/we) got money to buy more.Never trueNOMS HealthcareStart: 31-09-5515Cj the past 12 months, has lack of transportation kept you from medical appointments or from getting medications?NoNOMS HealthcareStart: 86-44-5143Xconpco CommentLast smoked : > 10 yearsNOMS HealthcareStart: 33-01-3560Ysnuoag Commentcaffeine: 2 coffee, 1 diet; 2-3 cups per dayBarnes-Jewish West County HospitalStart: 47-19-3875Ytp assigned at birthNot on [facility] HospitalHow often to you have a drink containing alcohol?2-3 time sa weekBarnes-Jewish West County HospitalHow many standard drinks containing alcohol do you have on a typical day?1 or 2NOMS HealthcareTobacco smoking status NHISTobacco smoking consumption unknownK[facility]art: 93-16-7507GmbKczdxh (finding)[facility] Goals DatePatient GoalDesired Activity/StatePersonal health goal Functional Status IbspSvgbnckmxrSbczjoDjtizovv86-25-3639Jblfr score [AUDIT-C]3 07/13/2024 9:45 AM EDT Mychart, GenericBarnes-Jewish West County HospitalUvhjsjlifa92-28-0545Dop often do you have a drink containing alcohol?2-3 times a week 07/13/2024 9:45 AM EDT Mychart, Generic 2-3 times a weekBarnes-Jewish West County HospitalOptoqooiai05-19-1451Vjw many standard drinks containing alcohol do you have on a typical day?1 or 2 07/13/2024 9:45 AM EDT Mychart, Generic 1 or 2NOMS Zsvjydleyu23-74-6086Lsl often do you have 6 or more drinks on 1 occasion?Never 07/13/2024 9:45 AM EDT Mychart, Generic NeverBarnes-Jewish West County Hospital 01-34-9948Rrcbotg Health Questionnaire 2 item (PHQ-2) [Reported][facility] Clinical Notes 09-13-2021 to 10-23-2024 Note Date & UgpnPnqhEdktkogg64-57-2237 History of Present illness Narrative* Rory Kilgore, [...] min Stress: No Stress Concern Present (07/13/2024) [employer] [place] [employer] - Occupational Stress Questionnaire Feeling of Stress : Only a little Social Connections: Moderately Integrated (07/13/2024) Social Connection and Isolation Panel [NHANES] Frequency of Communication with Friends and Family: More than three times a week Frequency of Social Gatherings with Friends and Family: Twice a week Attends Taoism Services: More than 4 times per year [...] time Rory Kilgore DPM documented in this encounterBarnes-Jewish West County HospitalOymttnyfei42-65-1554 History of Present illness Narrative* Uma Jay [...] minimize her perioperative risk. documented in this [facility]07-25-2025 History of Present illness Narrative* Parmjit Wall [...] referral to Plastic Surgery documented in this [address]20-2025 Telephone encounter Note* Telephone Encounter - Isabelle Delaney - 08/01/2024 9:14 AM EDT CORRECTION: PT Eval w/ Jeannette Cameron, PT on 08/11/24. [address]Yerfbgfeil85-58-4482 Miscellaneous Notes* Telephone Encounter - Isabelle Delaney - 08/01/2024 9:14 AM EDT CORRECTION: PT Eval w/ Jeannette Cameron, PT on 08/11/24. documented in this [address]20-2025 Telephone encounter Note* Telephone Encounter - Isabelle Delaney - 08/01/2024 9:12 AM EDT She contacted and we scheduled her PT Eval 08/11 w/ Jose De La Fuente PT. [address]Afakaogqqe30-45-0812 Miscellaneous Notes* Telephone Encounter - Isabelle Delaney - 08/01/2024 9:12 AM EDT She contacted and we scheduled her PT Eval 08/11 w/ Jose De La Fuente PT. * Telephone Encounter - Isabelle Delaney - 07/31/2024 11:33 AM EDT Tried to contact to schedule PT Eval for neck pain; lm requesting a call back. documented in this [address]19-2025 Telephone encounter Note* Telephone Encounter - Isabelle Delaney - 07/31/2024 11:33 AM EDT Tried to contact to schedule PT Eval for neck pain; lm requesting a call back. [facility] Rbrslfovro56-62-0281 History of Present illness Narrative* Parmjit Wall [...] Weight down 8 pounds. documented in this encounterBarnes-Jewish West County HospitalXjmmejnand96-64-4753 History of Present illness Narrative* Sonja Jesus, AMBER-PHOTO EDITOR - 05/15/2024 1:00 PM EDT Images from [...] limited to risks of scarring, darker or it trainee pigmentary changes, recurrence, incomplete removal and infection. [...] Next Visit: as scheduled documented in this encounterBarnes-[facility] [id number] History of Present illness Narrative* ADRIA Carroll [...] Next Visit: as scheduled documented in this encounterBarnes-[facility] [id number] History of Present illness Narrative* Parmjit Wall [...] (Adipex-P) 37.5 MG tablet documented in this encounterBarnes-[facility] [id number] History of Present illness Narrative* Sonja Jesus APRN-PHOTO EDITOR - 01/28/2024 8:30 AM EST Images from [...] Examined Right arm Examined Patient wearing nail ku[place], Denies dark streaks under finger nails Left [...] limited to risks of scarring, darker or it trainee pigmentary changes, recurrence, incomplete removal and infection. [...] tissue, and skin Chest - Medial (Center) [place] pearly papule Lesion biopsy Type of biopsy: [...] 1 year skin exam documented in this encounterBarnes-[facility] [id number] History of Present illness Narrative* Parmjit Wall [...] (Adipex-P) 37.5 MG tablet documented in this encounterBarnes-[facility] [id number] History of Present illness Narrative* Parmjit Wall [...] Problem List Items Addressed This Visit Dyslipidemia ([facility]) Relevant Orders Lipid panel Prediabetes Relevant Orders [...] Other Relevant Orders TSH documented in this encounterBarnes-Jewish [facility] [id number] History of Present illness Narrative* Parmjit Wall [...] (Augmentin) 875-125 MG tablet documented in this encounterBarnes-Jewish [facility] [id number] History of Present illness Narrative* Parmjit Wall [...] with medication and continue. documented in this encounterBarnes-Jewish [facility] [id number] Evaluation note* Encounter Date Diagnosis Assessment Notes [...] (ICD-10 - M79.641) Nov,therContusion material was printed [facility] Other 08-02-2022 NotePROCEDURE: XR HIPS CELINA 3_4V WO PELVIS HISTORY: Low back pain , chronic bilateral hip pain COMPARISON: None. FINDINGS: BONES:No fracture, acute abnormality, or significant arthropathy. SOFT TISSUES:No visible soft tissue swelling. EFFUSION:None visible. OTHER: Negative. IMPRESSION: 1. No acute bone abnormality or bone lesion. 2. Minimal degenerative changes. Electronically authenticated by: EARNESTINE WALKER Date: 2021-09-13 08:46[facility] noteNo assessment information availablePremier Health [facility] Work Phone: Evaluation note* Diagnosis Major depressive [...] Sialadenitis- Primary Sialoadenitis documented in this encounter [facility] HealthcareEvaluation note* Diagnosis Major depressive [...] of other medications documented in this encounter [facility] HealthcareEvaluation note* Diagnosis Major depressive [...] 30.9 in adult documented in this encounter [facility] HealthcareEvaluation note* Diagnosis Major depressive disorder, recurrent episode, mild (HCC) (CMS/HCC)- Primary Major depressive disorder, recurrent episode, mild DDD (degenerative disc disease), lumbar Degeneration of lumbar or lumbosacral intervertebral disc Seasonal allergic rhinitis due to pollen documented in this encounter [facility] HealthcareEvaluation note* Diagnosis Major depressive disorder, recurrent [...] tissue, and skin documented in this encounter [facility] HealthcareEvaluation note* Diagnosis Major depressive [...] (BMI 25.0-29.9) Overweight documented in this encounter [facility] HealthcareEvaluation note* Diagnosis Major depressive disorder, recurrent [...] Overweight Keloid scar documented in this encounter [facility] [...] (BMI 25.0-29.9) Overweight documented in this encounter [facility] HealthcareEvaluation note* Diagnosis Major depressive disorder, recurrent [...] Keloid Keloid scar documented in this encounter [facility] HealthcareEvaluation note* Diagnosis Major depressive disorder, recurrent [...] and unspecified hyperlipidemia documented in this encounter [facility]Evaluation note* [...] pain- Primary Cervicalgia documented in this encounter [facility] HealthcareEvaluation note* Diagnosis Major depressive [...] Hypertrophy of breast documented in this encounter [facility] HealthcareEvaluation note* Diagnosis Macromastia- Primary Hypertrophy of breast Thoracic spine pain Pain in thoracic spine [facility]* Diagnosis Major depressive disorder, recurrent [...] (acquired), left foot documented in this encounter [facility] HealthcareEvaluation note* Diagnosis Onset Date Resolution Status Admit Date Medicare annual wellness visit, jarene nt acuteOctober 2024 9:16am [facility] Work Phone: History general Narrative - Reported* Type Description Date Medical History depression Medical Historyhigh cholesterol [facility] Other Reason for referral (narrative)No reason for referral information availableBrown Memorial Hospital Work Phone: Reason for visit Narrative* Rehabilitation - Outpatient (Routine) - AuthorizedSpecialtyDiagnoses / ProceduresReferred By ContactReferred To ContactPhysical Therapy Diagnoses Neck pain Procedures HI OFFICE/OUTPATIENT [facility] 60 MINUTES Parmjit Wall MD [address] [place] [address] Phone: tel: fax: Jeannette Cameron, PT [address] [facility] [address] [place] [address] Phone: tel: fax: Referral IDStatusReasonStart DateExpiration DateVisits RequestedVisits [id number] Specialty Services Required [facility] Summary Purpose Family History Relationship Condition Age at Onset Recorded Date/T kathryn father Unknown motherDeceasedUnknown Advance Directives Advance Directive Response Recorded Date/ Time Advance Directives No December 14, 2021 8:29am Chief Complaint and Reason for Visit Reason for Visit Admit Date [facility] 04, 2024 9:16am Additional Source Comments REASON FOR VISIT (unrecogniz ed section and content) ReasonCommentsEarachePain at base of ear, goes down neckReasonCommentsFollow-up 1MReasonCommentsSkin CheckReasonCommentsFollow-up2 mSwollen lymph nodeReason CommentsFollow-upReasonOnset DateCommentsMed Yushxj3304/08/2024ReasonOnset Date CommentsMed Hiwfpl4504/22/2024ReasonCommentsSuspicious Skin LesionKeloidReason CommentsFollow-yg4eSyuctswk legsReasonOnset DateCommentsPT Initial Eval 07/31/2024Referral needs to be sent back for auth once scheduled.ReasonOnset SgnzUwdkejdwHugtmuskgh08/20/2025ReasonCommentsFollow-ki7CVkehqnDkupsxatCvuyli ProblemSpecialtyDiagnoses / ProceduresReferred By ContactReferred To Contact Plastic Surgery Diagnoses Macromastia Neck pain Parmjit Wall MD [address] [place] [address] Phone: tel: fax: Joaquin Rosales MD [address] [address] Phone: tel: fax: Referral IDStatusReasonStart DateExpiration DateVisits RequestedVisits [id number] Pain Care Teams (unrecognized sec tion and content) Team Status: Inactive Member Role Status Dates Jenny Long , STATE EPIDEMIOLOGIST-C Attending Provider Active Team MemberRelationshipSpecialtyStart DateEnd Date Parmjit Wall MD [address] [place] [address] PCP - GeneralFamily Medicine05/08/23Team MemberRelationshipSpecialtyStart DateEnd Date Parmjit Wall MD [address] [place] [address] PCP - GeneralFamily Medicine05/08/23Team MemberRelationshipSpecialtyStart DateEnd Date Parmjit Wall MD [address] [place] [address] PCP - GeneralFamily Medicine05/08/23Team MemberRelationshipSpecialtyStart DateEnd Date Parmjit Wall MD [address] [place] [address] PCP - GeneralFamily Medicine05/08/23Team MemberRelationshipSpecialtyStart DateEnd Date Parmjit Wall MD [address] [place] [address] PCP - GeneralFamily Medicine05/08/23Team MemberRelationshipSpecialtyStart DateEnd Date Parmjit Wall MD [address] [place] [address] PCP - GeneralFamily Medicine05/08/23Team MemberRelationshipSpecialtyStart DateEnd Date Parmjit Wall MD [address] [place] [address] PCP - GeneralFamily Medicine05/08/23Team MemberRelationshipSpecialtyStart DateEnd Date Parmjit Wall MD [address] [place] [address] PCP - GeneralFamily Medicine05/08/23Team MemberRelationshipSpecialtyStart DateEnd Date Parmjit Wall MD [address] [place] [address] PCP - GeneralFamily Medicine05/08/23Team MemberRelationshipSpecialtyStart DateEnd Date Parmjit Wall MD [address] [place] [address] PCP - GeneralFamily Medicine05/08/23Team MemberRelationshipSpecialtyStart DateEnd Date Parmjit Wall MD [address] [place] [address] PCP - GeneralFamily Medicine05/08/23 Parmjit Wall MD [address] [place] [address] PCP - [place]01/13/24Team MemberRelationshipSpecialtyStart DateEnd Date Parmjit Wall MD [address] [place] [address] PCP - GeneralFamily Medicine05/08/23 Parmjit Wall MD [address] [place] [address] PCP - [place]01/13/24Team MemberRelationshipSpecialtyStart DateEnd Date Parmjit Wall MD [address] [place] [address] PCP - GeneralFamily Medicine05/08/23 Parmjit Wall MD [address] [place] [address] PCP - [place]01/13/24Team MemberRelationshipSpecialtyStart DateEnd Date Parmjit Wall MD [address] [place] [address] PCP - GeneralFamily Medicine05/08/23Team MemberRelationshipSpecialtyStart DateEnd Date Parmjit Wall MD [address] [place] [address] PCP - GeneralFamily Medicine05/08/23Team MemberRelationshipSpecialtyStart DateEnd Date Parmjit Wall MD [address] [place] [address] PCP - GeneralFamily Medicine05/08/23Team MemberRelationshipSpecialtyStart DateEnd Date Parmjit Wall MD [address] [place] [address] PCP - GeneralFamily Medicine05/08/23Team MemberRelationshipSpecialtyStart DateEnd Date Parmjit Wall MD [address] [place] [address] PCP - GeneralFamily Medicine05/08/23Team MemberRelationshipSpecialtyStart DateEnd Date Parmjit Wall MD [address] [place] [address] PCP - GeneralFamily Medicine05/08/23Team MemberRelationshipSpecialtyStart DateEnd Date Parmjit Wall MD [address] [place] [address] PCP - GeneralFamily Medicine05/08/23Team MemberRelationshipSpecialtyStart DateEnd Date Parmjit Wall MD [address] [place] [address] PCP - GeneralFamily Medicine05/08/23Team MemberRelationshipSpecialtyStart DateEnd Date Parmjit Wall MD [address] [place] [address] PCP - GeneralFamily Medicine05/08/23Team MemberRelationshipSpecialtyStart DateEnd Date Parmjit Wall MD [address] [place] [address] PCP - GeneralFamily Medicine05/08/23Team MemberRelationshipSpecialtyStart DateEnd Date Parmjit Wall MD [address] [place] [address] PCP - GeneralFamily Medicine05/08/23Team MemberRelationshipSpecialtyStart DateEnd Date Parmjit Wall MD [address] [place] [address] PCP - Generalmily Medicine09/09/24Team MemberRelationshipSpecialtyStart DateEnd Date Parmjit Wall MD [address] [place] [address] PCP - [facility]05/08/23 Team Status: Active Member Role/Relationship Status Dates PHYSICIAN NO FAMILY Primary Care Provider Active Team Status: Inactive Member Role/Relationship Status Dates PHYSICIAN NO FAMILY Primary Care Provider Active Start: December 04, 2024 End: December 04, 2024Mar ISABELLA Wallttending ProviderActiveStart: December 04, 2024 End: December 04, 2024Team MemberRelationshipSpecialtyStart DateEnd Date Parmjit Wall MD [address] [place] [address] PCP - Generalmi Medicine05/08/23 Parmjit Wall MD [address] [place] [address] PCP - [place] 01/13/2412 Goals (unrecognized section and content) Goals may be documented in a n alternate section INFORMATION SOURCE (unrecogn ized section and content) DATE CREATED AUTHOR 12/30/2021 [facility] DATE CREATED AUTHOR AUTHOR'S ORGANSAM ATION 01/14/2022 [facility] DATE CREATED AUTHOR AUTHOR'S VICKY ATION 10/26/2024 [facility] EPIC FOR RECORDS PERTAINING TO [...] BE BASED ON THE PRIMARY CLINICAL RECORDS. [facility] provides no warranty or guarantee of the accuracy or completeness of information in this document.
--- NOTE | 2024-12-15 13:42 | ED_ITS ---
HPI HPI - General Adult General Chief complaint: Extremity Problem, Nontraumatic Stated complaint: THORN STUCK IN L THUMB Time Seen by Provider: 12/15/24 13:11 Source: patient Mode of arrival: walk-in Limitations: no limitations History of Present Illness HPI narrative: Patient is a 69-year-old female that presents with complaints of left thumb pain after she was read potting a cactus in and of getting a thorn in her thumb on 10/13/2024. She states that a callus formed around it and Dr. Hubbard a few weeks ago remove the callus. Most of the thorn came out with that but she is still having pain as the tip did not come out. Related Data Allergies Allergy/AdvReac Type Severity Reaction Status Date / Time No Known Drug Allergies Allergy Verified 12/15/24 12:22 Opioid HPI Opioid Management Most Recent Opioid Data: Last Pain Scale 3 12/15/24, 13:29 Review of Systems ROS Status of ROS 10 or more systems reviewed and unremark able except as noted in history and below PFSH PFSH Social History Little interest or pleasure in doing things: not at all Feeling down, depressed, or hopeless: not at all Exam Narrative Exam Narrative: General: No distress, age-appropriate Skin: Warm, dry, no pallor. No rash. Left thumb callous, tenderness with palpation next to callous and thorn. No erythema. Head: Normocephalic, atraumatic. Eye: Pupils are equal, round and EOMI. No scleral icterus. Ears, Nose, Mouth, and Throat: No nasal mucosal hypertrophy. Oral mucosa is moist, no posterior oropharynx erythema, uvula is mid-line Cardiovascular: Regular Rate and Rhythm without murmur, gallop or rub. Musculoskeletal: Full ROM of all extremities, no calf or popliteal tenderness. Full left thumb ROM. Neurological: A&O x4. No cranial nerve dysfunction observed. No truncal ataxia. Moves all extremities. Sensation intact. Psychiatric: Cooperative and interactive. Normal mood and affect. Constitutional Vital Signs, click to edit/add: Last Vital Signs Temp 98.2 F 12/15/24 12:22 Pulse 74 12/15/24 12:22 Resp 18 12/15/24 12:22 BP 139/75 12/15/24 12:22 Pulse Ox 100 12/15/24 12:22 O2 Del Method Room Air 12/15/24 12:22 Course Vital Signs Vital signs: Vital Signs Temperature 98.2 F 12/15/24 12:22 Pulse Rate 74 12/15/24 12:22 Respiratory Rate 18 12/15/24 12:22 Blood Pressure 139/75 12/15/24 12:22 Pulse Oximetry 100 12/15/24 12:22 Oxygen Delivery Method Room Air 12/15/24 12:22 Temperature 98.2 F 12/15/24 12:22 Pulse Rate 74 12/15/24 12:22 Respiratory Rate 18 12/15/24 12:22 Blood Pressure 139/75 12/15/24 12:22 Pulse Oximetry 100 12/15/24 12:22 Oxygen Delivery Method Room Air 12/15/24 12:22 Medical Decision Making MDM Narrative Medical decision making narrative: This is a 69-year-old female that presents with complaints of tenderness in the tip of her left thumb for 2 months since getting a cactus thorn lodged in her thumb. The top of it was able to be removed, and her PCP did debride some of the callus that had formed from her attempting to poke it with a needle. She still thinks that the tip of the thorn is in her thumb. On the location of patient's pain, there is a small area that is believed to be the foreign type. Verbal consent obtained from patient after discussed of risks, benefits, and alternatives, including infection, bleeding, incomplete removal, or need for further procedures. Local digital block with 1% lidocaine without epinephrine, approximately 1 mL. The thumb was prepped and draped in a sterile fashion using Betadine solution. The area of maximal tenderness adjacent to the callus was identified and marked. Using a 15 blade scalpel, small linear incision less than 0.5 cm was made. Soft tissue was carefully explored using blunt dissection with forceps and hemostats. No foreign body visualized. The wound was irrigated thoroughly with normal saline, and the area was palpated again to confirm no additional material was present. Hemostasis achieved with direct pressure. Wound left open, bacitracin applied and covered with sterile dressing. Patient tolerated well no complications. Patient instructed to use NSAIDs for pain. Keep area clean and dry for 24 hours then daily dressing changes. Monitor for signs of infection, redness, swelling, drainage, increased pain. Return to ED or follow-up with PCP for wound recheck. Patient discharged in stable condition with follow-up instructions. Differential Diagnosis Differential Diagnosis: Retained thorn, Post traumatic granuloma or inflammation, nerve irritation Discharge Plan Discharge Chief Complaint: Extremity Problem, Nontraumatic Clinical Impression: Contact with nonvenomous plant thorns and spines and sharp leaves, initial encounter Patient Disposition: Home, Self-Care Time of Disposition Decision: 14:31 Condition: Good Mode of Transportation: Private Vehicle Print Language: Austrian Instructions: Incision and Drainage (ED) Referrals: Parmjit Khan MD [Primary Care Provider, Family Practice] - 1 week Discharge Date/Time: 12/15/24 14:50
[2024-12-15] MEDS: LIDOCAINE HCL 1% 100 MG/10 ML MDV INJ (13:49)
[2024-12-15] MEDS: BACITRACIN 0.9 GM PACKET 1 PACKET TOPICAL (14:41)
== END 2024-12-15 14:50 | disposition home or self-care (01) ==
PROVIDERS: Emergency Provider Emergency Medicine; PCP Family Medicine
DX: M79.645 Pain in left finger(s) (principal); W60.XXXA Contact with nonvenomous plant thorns and spines and sharp leaves, initial encounter
CPT/HCPCS: 99282